=== PATIENT | female | born 1940 | race Caucasian/White ===

== ENCOUNTER 2018-01-22 11:20 | Inpatient (IN) | payer MEDICARE ==
[2018-01-22] MEDS: Sodium Chloride 0.9% 10 ML Syringe FLUSH PRN ×2 (11:55→13:29)
--- NOTE | 2018-01-22 11:59 | EDM.PDOC ---
ED HPI GENERAL MEDICAL PROBLEM - General Chief Complaint: Cardiovascular Problem Stated Complaint: SOB Time Seen by Provider: 01/22/18 11:54 Source of Information: Reports: Patient History Limitations: Reports: No Limitations - History of Present Illness INITIAL COMMENTS - FREE TEXT/NARRATIVE: 77-year-old female presents for evaluation and treatment of shortness of breath. Patient was seen at the [facility] today and sent to the ER for further management and care. She states that the symptoms started gradually. Feels are gradually worsening. Reports shortness of breath, worse with exertion. She reports associated symptoms of chills, diaphoresis, weakness and night sweats. She denies any fevers, cough, nausea, vomiting, chest pain, neck pain, orthopnea or any diarrhea. She denies any blood in her stool. Reports her last bowel movement was today. She denies any changes in her bowel movements such as thin stools. She reports swelling in her legs but states this has been going on for years and has not appreciated any worsening swelling in her legs or any pain in her legs. Patient reports past medical history remarkable for a lung carcinoma with a left lower lobectomy in 1993. Reports she coded after the procedure. She also reports that she's had a heart attack, in 2005, and had a coronary stent placed. Patient also reports that she's had previous history of pulmonary embolus. Patient reports she's never had a colonoscopy. Patient had a chest x-ray done in the [facility]. Patient reports she had a nosebleed prior to arrival in the ER. Nosebleed subsided with pressure. - Related Data Allergies Allergy/AdvReac Type Severity Reaction Status Date / Time No Known Allergies Allergy Verified 01/22/18 11:31 Home Meds: Home Meds Glucosamine/D3/Boswellia Clare [Glucosamine Complex Tablet] 200 mg PO DAILY 10/17 [History] Lisinopril 10 mg PO DAILY 01/01/15 [History] Metoprolol Tartrate 50 mg PO BID 01/01/15 [History] Acetaminophen/Diphenhydramine [Tylenol Pm Ex-Strength Caplet] 1 tab PO BEDTIME 01/22/18 [History] Clopidogrel Bisulfate [Clopidogrel] 75 mg PO DAILY 01/22/18 [History] Ergocalciferol (Vitamin D2) [Vitamin D2] 2,000 units PO DAILY 01/22/18 [History] Famotidine 20 mg PO DAILY 01/22/18 [History] Furosemide 20 mg PO DAILY PRN 01/22/18 [History] Loratadine [Claritin] 10 mg PO DAILY PRN 01/22/18 [History] Multivitamin [Multivitamins] 1 tab PO DAILY 01/22/18 [History] Pravastatin Sodium [Pravachol] 40 mg PO DAILY 01/22/18 [History] Vit A/Vit C/Vit E/Zinc/Copper [Preservision Areds Softgel] 1 cap PO DAILY [History] Past Medical History Cardiovascular History: Reports: Hypertension, Prior Cardiac Arrest, Stents Other Cardiovascular History: placed 2005 Respiratory History: Reports: Other (See Below) Other Respiratory History: "walking pneumonia" Gastrointestinal History: Reports: Other (See Below) Other Gastrointestinal History: bleeding ulcer 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: Oncologic (Cancer) History: Reports: Other (See Below) Other Oncologic History: lung CA; carcenoid tumor removed in 1993 - Past Surgical History HEENT Surgical History: Reports: Adenoidectomy, Tonsillectomy Respiratory Surgical History: Reports: Other (See Below) Other Respiratory Surgeries/Procedures: lung surgery; carcenoid tumor removed in 1993; pulmonary embolism Social & Family History - Tobacco Use Smoking Status *Q: Former Smoker Used Tobacco, but Quit: Yes Month/Year Tobacco Last Used: 1993 - Caffeine Use Caffeine Use: Reports: Coffee - Recreational Drug Use Recreational Drug Use: No ED ROS GENERAL - Review of Systems Review Of Systems: See Below Constitutional: Reports: Weakness, Night Sweats, Diaphoresis. Denies: Fever, Chills HEENT: Denies: Ear Pain, Throat Pain Respiratory: Reports: Shortness of Breath. Denies: Cough Cardiovascular: Reports: Dyspnea on Exertion, Edema. Denies: Chest Pain, Lightheadedness, Orthopnea GI/Abdominal: Denies: Abdominal Pain, Diarrhea, Nausea, Vomiting Musculoskeletal: Denies: Neck Pain, Arm Pain, Back Pain Neurological: Reports: Weakness. Denies: Headache, Syncope ED EXAM, GENERAL - Physical Exam Exam: See Below Exam Limited By: No Limitations General Appearance: Alert, WD/WN, No Apparent Distress Eye Exam: Bilateral Eye: Normal Inspection Ears: Normal External Exam, Normal Canal, Hearing Grossly Normal, Normal TMs Nose: Normal Inspection Respiratory/Chest: No Respiratory Distress, Lungs Clear, Normal Breath Sounds Cardiovascular: Normal Peripheral Pulses, Regular Rate, Rhythm, No Murmur, Other (1+ pitting edema) Neurological: Alert, Oriented, Normal Cognition Psychiatric: Normal Affect, Normal Mood Skin Exam: Warm, Dry, Normal Color EKG INTERPRETATION EKG Date: 01/22/18 Time: 12:00 Rhythm: NSR Rate (Beats/Min): 85 [place]: Normal P-Wave: Present QRS: Normal ST-T: Normal QT: Normal EKG Interpretation Comments: NSR at 85 bpm. Early "R" wave transition - consider RVH/septal hypertrophy pattern. Decreased voltage pattern. Reviewed by myself and Dr. Linares. Course - Vital Signs Last Recorded V/S: Last Vital Signs Temp 36.8 C 01/22/18 11:32 Pulse 88 01/22/18 11:32 Resp 26 H 01/22/18 11:32 BP 143/75 H 01/22/18 11:32 Pulse Ox 96 01/22/18 11:32 - Orders/Labs/Meds Orders: Active Orders 24 hr Category Date Time Status Patient Status [ADT] Routine ADT 01/22/18 15:17 Ordered Cardiac Monitoring [RC] . DIRECTED Care 01/22/18 11:39 Active EKG 12 Lead [EKG Documentation Completion] [RC] STAT Care 01/22/18 11:39 Active Peripheral IV Care [RC] . DIRECTED Care 01/22/18 11:40 Active Sodium Chloride 0.9% [Normal Saline] 250 ml Med 01/22/18 13:00 Active IV ASDIRECTED Sodium Chloride 0.9% [Saline Flush] Med 01/22/18 11:40 Active 10 ml FLUSH ASDIRECTED PRN Peripheral IV Insertion Adult [OM.PC] Routine Oth 01/22/18 11:40 Ordered Medication Orders Sodium Chloride (Normal Saline) 250 mls @ 80 mls/hr IV ASDIRECTED MATT Last Admin: 01/22/18 13:29 Dose: 80 mls/hr Sodium Chloride (Saline Flush) 10 ml FLUSH ASDIRECTED PRN PRN Reason: Keep Vein Open Last Admin: 01/22/18 13:29 Dose: 10 ml Admin: 01/22/18 11:55 Dose: 10 ml Labs: Laboratory Tests 01/22/18 01/22/18 01/22/18 Range/Units 11:50 11:50 11:50 WBC (3.98-10.04) K/mm3 RBC (3.98-5.22) M/mm3 Hgb (11.2-15.7) gm/L Hct (34.1-44.9) % MCV (79.4-94.8) fl MCH (25.6-32.2) pg MCHC (32.2-35.5) g/dl RDW Std Deviation (36.4-46.3) fL Plt Count (182-369) K/mm3 MPV (9.4-12.3) fl Neutrophils % (Manual) (40-60) % Band Neutrophils % (0-10) % Lymphocytes % (Manual) (20-40) % Atypical Lymphs % % Monocytes % (Manual) (2-10) % Eosinophils % (Manual) (0.7-5.8) % Basophils % (Manual) (0.1-1.2) Platelet Estimate RBC Morph Comment PT 10.3 (9.5-12.1) SECONDS INR 0.94 APTT 26 (24-31) SECONDS D-Dimer, Quantitative 9.06 H (0.19-0.50) mg/L Sodium 139 (136-145) mEq/L Potassium 4.6 (3.5-5.1) mEq/L Chloride 108 H (98-107) mEq/L Carbon Dioxide 24 (21-32) mEq/L Anion Gap 11.6 (5-15) BUN 30 H (7-18) mg/dL Creatinine 1.3 H (0.55-1.02) mg/dL Est Cr Clr Drug Dosing 33.93 mL/min Estimated GFR (MDRD) 40 (>60) mL/min BUN/Creatinine Ratio 23.1 H (14-18) Glucose 107 (83-115) mg/dL Calcium 9.5 (8.5-10.1) mg/dL Total Bilirubin 0.4 (0.2-1.0) mg/dL AST 20 (15-37) U/L ALT 27 (14-59) U/L Alkaline Phosphatase 76 (46-116) U/L Troponin I (0.00-0.056) ng/mL NT-Pro-B Natriuret Pep 207 (0-450) pg/mL Total Protein 6.6 (6.4-8.2) g/dl Albumin 3.4 (3.4-5.0) g/dl Globulin 3.2 gm/dL Albumin/Globulin Ratio 1.1 (1-2) 01/22/18 01/22/18 Range/Units 11:50 11:50 WBC 8.09 (3.98-10.04) K/mm3 RBC 4.36 (3.98-5.22) M/mm3 Hgb 13.0 (11.2-15.7) gm/L Hct 40.2 (34.1-44.9) % MCV 92.2 (79.4-94.8) fl MCH 29.8 (25.6-32.2) pg MCHC 32.3 (32.2-35.5) g/dl RDW Std Deviation 46.1 (36.4-46.3) fL Plt Count 175 L (182-369) K/mm3 MPV 10.2 (9.4-12.3) fl Neutrophils % (Manual) 69 H (40-60) % Band Neutrophils % 2 (0-10) % Lymphocytes % (Manual) 22 (20-40) % Atypical Lymphs % 0 % Monocytes % (Manual) 5 (2-10) % Eosinophils % (Manual) 1 (0.7-5.8) % Basophils % (Manual) 1 (0.1-1.2) Platelet Estimate Adequate RBC Morph Comment Normal PT (9.5-12.1) SECONDS INR APTT (24-31) SECONDS D-Dimer, Quantitative (0.19-0.50) mg/L Sodium (136-145) mEq/L Potassium (3.5-5.1) mEq/L Chloride (98-107) mEq/L Carbon Dioxide (21-32) mEq/L Anion Gap (5-15) BUN (7-18) mg/dL Creatinine (0.55-1.02) mg/dL Est Cr Clr Drug Dosing mL/min Estimated GFR (MDRD) (>60) mL/min BUN/Creatinine Ratio (14-18) Glucose (83-115) mg/dL Calcium (8.5-10.1) mg/dL Total Bilirubin (0.2-1.0) mg/dL AST (15-37) U/L ALT (14-59) U/L Alkaline Phosphatase (46-116) U/L Troponin I < 0.017 (0.00-0.056) ng/mL NT-Pro-B Natriuret Pep (0-450) pg/mL Total Protein (6.4-8.2) g/dl Albumin (3.4-5.0) g/dl Globulin gm/dL Albumin/Globulin Ratio (1-2) Meds: Medications Generic Name Dose Route Start Last Admin Trade Name Freq PRN Reason Stop Dose Admin Sodium Chloride 250 mls @ 80 mls/hr 01/22/18 13:00 01/22/18 13:29 Normal Saline IV 80 mls/hr ASDIRECTED MATT Administration Sodium Chloride 10 ml 01/22/18 11:40 01/22/18 13:29 Saline Flush FLUSH 10 ml ASDIRECTED PRN Administration Keep Vein Open Discontinued Medications Generic Name Dose Route Start Last Admin Trade Name Freq PRN Reason Stop Dose Admin Iopamidol 100 ml 01/22/18 12:46 01/22/18 13:29 Isovue-370 (76%) IVPUSH 01/22/18 12:47 100 ml ONETIME ONE Administration - Radiology Interpretation Free Text/Narrative:: 2 view chest xray shows no acute intrathoracic process. Abdomen: Supine and upright views of the abdomen were obtained. Comparison: No prior abdominal x-ray, prior CT abdomen and pelvis exam of . Bowel gas pattern appears normal. Calcifications are seen within the pelvis compatible with phleboliths. Scoliosis and degenerative change is noted within the spine. Inferior vena cava filter is seen. No free air is seen. Impression: 1. Incidental findings. No free air is seen. CT chest Technique: Multiple axial sections were obtained from above the lung apices inferiorly through the lung bases. Intravenous contrast was utilized. Study has been performed as a pulmonary angiogram protocol. Findings: Pulmonary arteries are not optimally opacified. There is however, several filling defects felt to be present within the segmental branches of the left lower lung and left upper lung pulmonary arteries which are felt compatible with pulmonary emboli. No other pulmonary embolism is seen. Mediastinum and hilar regions show no adenopathy or mass. Atherosclerotic calcification is seen within the aorta. Right jugular vein is asymmetrically enlarged compared to the left side which is likely incidental. No pericardial thickening is seen. Cyst is partially visualized within the right kidney measuring 4.8 cm. Slight subsegmental atelectasis is seen posteriorly within both lung bases. Several minimal subpleural blebs are seen within the upper lungs. No acute parenchymal densities are seen within either lung. Impression: 1. Several left-sided pulmonary emboli are seen. 2. Other findings which are felt to be incidental. - Re-Assessments/Exams Free Text/Narrative Re-Assessment/Exam: 01/22/18 15:01 I reviewed the labs, ekg and imaging with the patient. Patient does have an IVC filter placed. It is unclear how she developed a pulmonary embolus with an IVC filter. Possibly she has a defect in the heart and needs an echocardiogram to further evaluate this. Discussed the options with the patient of anticoagulation. She does not want to on Coumadin. We did discuss Xarelto. She has some financial concerns, unfortunate this time I do not have her insurance information and we are unable to give her an exact cost of what this would be. I did inform her that if she would like to start with a new anticoagulation this would work right away and we could possibly do an echocardiogram as an outpatient. The patient's has some concerns that they do over an hour as available in away. Patient's oxygen sats did drop into the low 90s, 90-91 when she was exerting herself by getting out of the wheelchair. I discussed the case with Dr. Harden. He has come to the ER and seen the patient. We will admit her to [facility] with telemetry for pulmonary embolus. Departure - Departure Time of Disposition: 15:05 Disposition: Admitted As Inpatient 66 Condition: Fair Clinical Impression: Pulmonary embolism Referrals: Ching Moraes DRAMATIC READER [Primary Care Provider] - Forms: ED Department Discharge Additional Instructions: Patient admitted to med/surg with tele for pulmonary embolism. - My Orders Last 24 Hours: My Active Orders 01/22/18 11:39 Cardiac Monitoring [RC] . DIRECTED EKG 12 Lead [EKG Documentation Completion] [RC] STAT 01/22/18 11:40 Peripheral IV Care [RC] . DIRECTED Sodium Chloride 0.9% [Saline Flush] 10 ml FLUSH ASDIRECTED PRN Peripheral IV Insertion Adult [OM.PC] Routine 01/22/18 13:00 Sodium Chloride 0.9% [Normal Saline] 250 ml IV ASDIRECTED 01/22/18 15:17 Patient Status [ADT] Routine - Assessment/Plan Last 24 Hours: My Active Orders 01/22/18 11:39 Cardiac Monitoring [RC] . DIRECTED EKG 12 Lead [EKG Documentation Completion] [RC] STAT 01/22/18 11:40 Peripheral IV Care [RC] . DIRECTED Sodium Chloride 0.9% [Saline Flush] 10 ml FLUSH ASDIRECTED PRN Peripheral IV Insertion Adult [OM.PC] Routine 01/22/18 13:00 Sodium Chloride 0.9% [Normal Saline] 250 ml IV ASDIRECTED 01/22/18 15:17 Patient Status [ADT] Routine
[2018-01-22] MEDS ORDERED: Iopamidol 755 Mg/ML 100 ML Bottle IVPUSH ONE (12:46)
[2018-01-22] MEDS ORDERED: Sodium Chloride 0.9% 250 ML IV SCH (13:00)
--- NOTE | 2018-01-22 13:40 | CR ---
Abdomen: Supine and upright views of the abdomen were obtained. Comparison: No prior abdominal x-ray, prior CT abdomen and pelvis exam of 07/09/14. Bowel gas pattern appears normal. Calcifications are seen within the pelvis compatible with phleboliths. Scoliosis and degenerative change is noted within the spine. Inferior vena cava filter is seen. No free air is seen. Impression: 1. Incidental findings. No free air is seen. Diagnostic code #2
--- NOTE | 2018-01-22 14:07 | CT ---
CT chest Technique: Multiple axial sections were obtained from above the lung apices inferiorly through the lung bases. Intravenous contrast was utilized. Study has been performed as a pulmonary angiogram protocol. Findings: Pulmonary arteries are not optimally opacified. There is however, several filling defects felt to be present within the segmental branches of the left lower lung and left upper lung pulmonary arteries which are felt compatible with pulmonary emboli. No other pulmonary embolism is seen. Mediastinum and hilar regions show no adenopathy or mass. Atherosclerotic calcification is seen within the aorta. Right jugular vein is asymmetrically enlarged compared to the left side which is likely incidental. No pericardial thickening is seen. Cyst is partially visualized within the right kidney measuring 4.8 cm. Slight subsegmental atelectasis is seen posteriorly within both lung bases. Several minimal subpleural blebs are seen within the upper lungs. No acute parenchymal densities are seen within either lung. Impression: 1. Several left-sided pulmonary emboli are seen. 2. Other findings which are felt to be incidental. Diagnostic code #5
[2018-01-22] MEDS ORDERED: Loratadine 10 MG Tab PO PRN (15:45)
--- NOTE | 2018-01-22 15:45 | PCM.HP ---
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 Her c/o is associated with exertion, chills, diaphoresis, weakness and night sweats. Her initial workup in the emergency department shows a CBC remarkable for platelet of 175 and neutrophils of 69%. Her coagulation studies show abnormal for d-dimer of 9.06. Her chemistry is significant for chloride of 108, BUN of 30 , and creatinine of 1.3. Abdominal x-ray report reads inferior vena cava filter is seen. No free air is seen. Chest CT angiogram report reads several left- sided pulmonary emboli are seen. Patient is being admitted for medical treatment of pulmonary emboli. She is CPR 1 only. - Related Data Allergies/Adverse Reactions: Allergies Allergy/AdvReac Type Severity Reaction Status Date / Time No Known Allergies Allergy Verified 01/22/18 11:31 Home Medications: Home Meds Glucosamine/D3/Boswellia Clare [Glucosamine Complex Tablet] 200 mg PO DAILY 10/17 [History] Lisinopril 10 mg PO DAILY 01/01/15 [History] Metoprolol Tartrate 50 mg PO BID 01/01/15 [History] Acetaminophen/Diphenhydramine [Tylenol Pm Ex-Strength Caplet] 1 tab PO BEDTIME 01/22/18 [History] Clopidogrel Bisulfate [Clopidogrel] 75 mg PO DAILY 01/22/18 [History] Ergocalciferol (Vitamin D2) [Vitamin D2] 2,000 units PO DAILY 01/22/18 [History] Famotidine 20 mg PO DAILY 01/22/18 [History] Furosemide 40 mg PO DAILY PRN 01/22/18 [History] Loratadine [Claritin] 10 mg PO DAILY PRN 01/22/18 [History] Multivitamin [Multivitamins] 1 tab PO DAILY 01/22/18 [History] Pravastatin Sodium [Pravachol] 40 mg PO DAILY 01/22/18 [History] Vit A/Vit C/Vit E/Zinc/Copper [Preservision Areds Softgel] 1 cap PO DAILY [History] Apixaban [Eliquis] 5 mg PO ASDIRECTED #90 tablet 01/23/18 [Rx] Past Medical History Cardiovascular History: Reports: Hypertension, Prior Cardiac Arrest, Stents Other Cardiovascular History: placed 2005 Respiratory History: Reports: Other (See Below) Other Respiratory History: "walking pneumonia" Gastrointestinal History: Reports: Other (See Below) Other Gastrointestinal History: bleeding ulcer REGISTERED NURSE History: Reports: Oncologic (Cancer) History: Reports: Other (See Below) Other Oncologic History: lung CA; carcenoid tumor removed in 1993 - Past Surgical History HEENT Surgical History: Reports: Adenoidectomy, Tonsillectomy Respiratory Surgical History: Reports: Other (See Below) Other Respiratory Surgeries/Procedures: lung surgery; carcenoid tumor removed in 1993; pulmonary embolism Social & Family History - Tobacco Use Smoking Status *Q: Former Smoker Used Tobacco, but Quit: Yes Month/Year Tobacco Last Used: 1993 - Caffeine Use Caffeine Use: Reports: Coffee - Recreational Drug Use Recreational Drug Use: No H&P Review of Systems - Review of Systems: Review Of Systems: See Below General: Reports: Chills, Malaise, Weakness, Night Sweats, Diaphoresis. Denies : Fever HEENT: Reports: No Symptoms Pulmonary: Reports: Shortness of Breath Cardiovascular: Reports: Dyspnea on Exertion, Edema. Denies: Chest Pain, Palpitations, Lightheadedness Gastrointestinal: Denies: Abdominal Pain, Nausea, Vomiting Genitourinary: Reports: No Symptoms Musculoskeletal: Reports: No Symptoms Skin: Denies: Cyanosis, Mottled, Pallor, Diaphoresis Psychiatric: Denies: Depression, Anxiety, Agitation, Hallucinations Neurological: Reports: Weakness, Gait Disturbance. Denies: Confusion Hematologic/Lymphatic: Reports: No Symptoms Immunologic: Reports: No Symptoms Exam - Exam Exam: See Below - Vital Signs Vital Signs: Last Vital Signs Temp 36.8 C 01/22/18 11:32 Pulse 88 01/22/18 11:32 Resp 26 H 01/22/18 11:32 BP 143/75 H 01/22/18 11:32 Pulse Ox 96 01/22/18 11:32 Weight: 90.718 kg - Exam General: Alert, Oriented, Cooperative, Mild Distress HEENT: Conjunctiva Clear, EACs Clear, EOMI, Hearing Intact, Mucosa Moist & [place] , Nares Patent, Normal Nasal Septum, Posterior Pharynx Clear, Pupils Equal, Pupils Reactive Neck: Supple, Trachea Midline, +2 Carotid Pulse wo Bruit Lungs: Clear to Auscultation, Normal Respiratory Effort Cardiovascular: Regular Rate, Regular Rhythm GI/Abdominal Exam: Normal Bowel Sounds, Soft, Non-Tender, No Organomegaly, No Distention, No Abnormal Bruit (Female) Exam: Deferred Rectal (Female) Exam: Deferred Back Exam: Normal Inspection, Decreased Range of Motion Extremities: Normal Inspection, Normal Range of Motion, Non-Tender, Normal Capillary Refill, Pedal Edema, Other (b/l distal lower extremity skin hyperpigmentation) Peripheral Pulses: 2+: Posterior Tibial (L), Posterior Tibial (R), Dorsalis Pedis (L), Dorsalis Pedis (R) Skin: Warm, Dry, Intact Neuro Extensive - Mental Status: Oriented x3, Normal Cognition, Memory Intact Neuro Extensive - Motor, Sensory, Reflexes: CN II-XII Intact, Abnormal Gait Psychiatric: Alert, Normal Affect, Normal Mood - Patient Data Lab Results Last 24 hrs: Laboratory Results - last 24 hr 01/22/18 01/22/18 01/22/18 Range/Units 11:50 11:50 11:50 WBC (3.98-10.04) K/mm3 RBC (3.98-5.22) M/mm3 Hgb (11.2-15.7) gm/L Hct (34.1-44.9) % MCV (79.4-94.8) fl MCH (25.6-32.2) pg MCHC (32.2-35.5) g/dl RDW Std Deviation (36.4-46.3) fL Plt Count (182-369) K/mm3 MPV (9.4-12.3) fl Neutrophils % (Manual) (40-60) % Band Neutrophils % (0-10) % Lymphocytes % (Manual) (20-40) % Atypical Lymphs % % Monocytes % (Manual) (2-10) % Eosinophils % (Manual) (0.7-5.8) % Basophils % (Manual) (0.1-1.2) Platelet Estimate RBC Morph Comment PT 10.3 (9.5-12.1) SECONDS INR 0.94 APTT 26 (24-31) SECONDS D-Dimer, Quantitative 9.06 H (0.19-0.50) mg/L Sodium 139 (136-145) mEq/L Potassium 4.6 (3.5-5.1) mEq/L Chloride 108 H (98-107) mEq/L Carbon Dioxide 24 (21-32) mEq/L Anion Gap 11.6 (5-15) BUN 30 H (7-18) mg/dL Creatinine 1.3 H (0.55-1.02) mg/dL Est Cr Clr Drug Dosing 33.93 mL/min Estimated GFR (MDRD) 40 (>60) mL/min BUN/Creatinine Ratio 23.1 H (14-18) Glucose 107 (83-115) mg/dL Calcium 9.5 (8.5-10.1) mg/dL Total Bilirubin 0.4 (0.2-1.0) mg/dL AST 20 (15-37) U/L ALT 27 (14-59) U/L Alkaline Phosphatase 76 (46-116) U/L Troponin I (0.00-0.056) ng/mL NT-Pro-B Natriuret Pep 207 (0-450) pg/mL Total Protein 6.6 (6.4-8.2) g/dl Albumin 3.4 (3.4-5.0) g/dl Globulin 3.2 gm/dL Albumin/Globulin Ratio 1.1 (1-2) 01/22/18 01/22/18 Range/Units 11:50 11:50 WBC 8.09 (3.98-10.04) K/mm3 RBC 4.36 (3.98-5.22) M/mm3 Hgb 13.0 (11.2-15.7) gm/L Hct 40.2 (34.1-44.9) % MCV 92.2 (79.4-94.8) fl MCH 29.8 (25.6-32.2) pg MCHC 32.3 (32.2-35.5) g/dl RDW Std Deviation 46.1 (36.4-46.3) fL Plt Count 175 L (182-369) K/mm3 MPV 10.2 (9.4-12.3) fl Neutrophils % (Manual) 69 H (40-60) % Band Neutrophils % 2 (0-10) % Lymphocytes % (Manual) 22 (20-40) % Atypical Lymphs % 0 % Monocytes % (Manual) 5 (2-10) % Eosinophils % (Manual) 1 (0.7-5.8) % Basophils % (Manual) 1 (0.1-1.2) Platelet Estimate Adequate RBC Morph Comment Normal PT (9.5-12.1) SECONDS INR APTT (24-31) SECONDS D-Dimer, Quantitative (0.19-0.50) mg/L Sodium (136-145) mEq/L Potassium (3.5-5.1) mEq/L Chloride (98-107) mEq/L Carbon Dioxide (21-32) mEq/L Anion Gap (5-15) BUN (7-18) mg/dL Creatinine (0.55-1.02) mg/dL Est Cr Clr Drug Dosing mL/min Estimated GFR (MDRD) (>60) mL/min BUN/Creatinine Ratio (14-18) Glucose (83-115) mg/dL Calcium (8.5-10.1) mg/dL Total Bilirubin (0.2-1.0) mg/dL AST (15-37) U/L ALT (14-59) U/L Alkaline Phosphatase (46-116) U/L Troponin I < 0.017 (0.00-0.056) ng/mL NT-Pro-B Natriuret Pep (0-450) pg/mL Total Protein (6.4-8.2) g/dl Albumin (3.4-5.0) g/dl Globulin gm/dL Albumin/Globulin Ratio (1-2) Result Diagrams: 01/23/18 06:41 01/23/18 06:41 EKG INTERPRETATION EKG Date: 01/22/18 Time: 12:00 Rhythm: NSR Rate (Beats/Min): 85 [place]: Normal P-Wave: Present QRS: Normal ST-T: Normal QT: Normal Problem List Initiated/Reviewed/Updated: Yes Orders Last 24hrs: Active Orders 24 hr Category Date Time Status Patient Status [ADT] Routine ADT 01/22/18 15:17 Active Cardiac Monitoring [RC] . DIRECTED Care 01/22/18 11:39 Active EKG 12 Lead [EKG Documentation Completion] [RC] STAT Care 01/22/18 11:39 Active Peripheral IV Care [RC] . DIRECTED Care 01/22/18 11:40 Active Sodium Chloride 0.9% [Normal Saline] 250 ml Med 01/22/18 13:00 Active IV ASDIRECTED Sodium Chloride 0.9% [Saline Flush] Med 01/22/18 11:40 Active 10 ml FLUSH ASDIRECTED PRN Peripheral IV Insertion Adult [OM.PC] Routine Oth 01/22/18 11:40 Ordered Medication Orders Sodium Chloride (Normal Saline) 250 mls @ 80 mls/hr IV ASDIRECTED MATT Last Admin: 01/22/18 13:29 Dose: 80 mls/hr Sodium Chloride (Saline Flush) 10 ml FLUSH ASDIRECTED PRN PRN Reason: Keep Vein Open Last Admin: 01/22/18 13:29 Dose: 10 ml Admin: 01/22/18 11:55 Dose: 10 ml Assessment/Plan Comment:: Assessment/Plan: Acute: Left Lung PE-Unprovoked - Has an old IVC Filter in placed - Hx/o Carcinoid tumor; no hx/o Dysrrhythmia - EKG shows NSR - No hx/o Prolonged Travel, Recent Surgery or Immobility - Class I Obese - Has Hx/o PE was provoked after lung resection - Eliquis PE treatment protocol - 2D echo in AM and 48hr holter monitor after d/c HAS-BLED Score for Major Bleeding Risk: 4 (high risk for major bleeding) - Plavix and Eliquis - Hx/o Gastric ulcer in the past; will double frequency of H2B - She understood the risks associated with combined medications above - She has to discuss this further with her PCP Chronic: HTN HLD CAD S/p Stents Placement in 2005 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
[2018-01-22] MEDS ORDERED: Temazepam 7.5 MG Cap PO PRN (15:48)
[2018-01-22] MEDS ORDERED: HYDROmorphone 0.5 MG/0.5 ML SYRINGE IVPUSH PRN (15:48)
[2018-01-22] MEDS ORDERED: Acetaminophen 325 MG Tab PO PRN (15:48)
[2018-01-22] MEDS ORDERED: Docusate Sodium 100 MG Cap PO PRN (15:48)
[2018-01-22] MEDS ORDERED: Polyethylene Glycol 3350 Powder 17 GM Packet PO PRN (15:48)
[2018-01-22] MEDS ORDERED: Ondansetron 4 MG/2 ML SDV IV PRN (15:48)
[2018-01-22] MEDS ORDERED: Promethazine 12.5 MG in Sodium Chloride 0.9% 50 ML IV PRN (15:48)
[2018-01-22] MEDS ORDERED: Acetaminophen/HYDROcodone 325-5 MG Tab PO PRN (15:48)
[2018-01-22] MEDS ORDERED: Albuterol/Ipratropium 3.0-0.5 MG/3 ML Neb Soln NEB PRN (15:48)
[2018-01-22] MEDS ORDERED: Bisacodyl 5 MG Tab PO PRN (15:48)
[2018-01-22] MEDS ORDERED: hydrALAZINE 20 MG/ML SDV IVPUSH PRN (16:15)
[2018-01-22] MEDS ORDERED: Metoprolol Tartrate 5 MG/5 ML SDV IVPUSH PRN (16:15)
[2018-01-22] MEDS ORDERED: LORazepam 2 MG/ML SDV IVPUSH PRN (16:15)
[2018-01-22] MEDS ORDERED: Furosemide 20 MG Tab PO PRN (16:30)
[2018-01-22] MEDS ORDERED: [UNRECOGNIZED DRUG - REMARK] PO SCH (21:00)
[2018-01-22] MEDS: Metoprolol Tartrate 50 MG Tab PO SCH (21:07)
[2018-01-22] MEDS: Apixaban 5 MG Tab PO SCH (21:07)
[2018-01-22] MEDS ORDERED: Famotidine 20 MG/2 ML SDV IVPUSH ONE (21:15)
--- NOTE | 2018-01-23 07:18 | PCM.PN ---
- General Info Date of Service: 01/23/18 Admission Dx/Problem (Free Text): Admission Diagnosis/Problem Admission Diagnosis/Problem Pulmonary embolism Subjective Update: Follow Up - Patient Data Vitals - Most Recent: Last Vital Signs Temp 36.8 C 01/22/18 11:32 Pulse 70 01/22/18 22:43 Resp 20 01/22/18 21:08 BP 140/77 01/22/18 21:08 Pulse Ox 98 01/22/18 22:43 Weight - Most Recent: 91.796 kg I&O - Last 24 Hours: Intake & Output 01/22/18 01/23/18 01/23/18 22:59 06:59 14:59 Intake Total 0 150 Output Total 950 Balance 0 -800 Lab Results Last 24 Hours: Laboratory Results - last 24 hr 01/22/18 01/22/18 01/22/18 Range/Units 11:50 11:50 11:50 WBC (3.98-10.04) K/mm3 RBC (3.98-5.22) M/mm3 Hgb (11.2-15.7) gm/L Hct (34.1-44.9) % MCV (79.4-94.8) fl MCH (25.6-32.2) pg MCHC (32.2-35.5) g/dl RDW Std Deviation (36.4-46.3) fL Plt Count (182-369) K/mm3 MPV (9.4-12.3) fl Neut % (Auto) (34.0-71.1) % Lymph % (Auto) (19.3-51.7) % [place] % (Auto) (4.7-12.5) % Eos % (Auto) (0.7-5.8) Baso % (Auto) (0.1-1.2) % Neut # (Auto) (1.56-6.13) K/mm3 Lymph # (Auto) (1.18-3.74) K/mm3 [place] # (Auto) (0.24-0.36) K/mm3 Eos # (Auto) (0.04-0.36) K/mm3 Baso # (Auto) (0.01-0.08) K/mm3 Neutrophils % (Manual) (40-60) % Band Neutrophils % (0-10) % Lymphocytes % (Manual) (20-40) % Atypical Lymphs % % Monocytes % (Manual) (2-10) % Eosinophils % (Manual) (0.7-5.8) % Basophils % (Manual) (0.1-1.2) Platelet Estimate RBC Morph Comment PT 10.3 (9.5-12.1) SECONDS INR 0.94 APTT 26 (24-31) SECONDS D-Dimer, Quantitative 9.06 H (0.19-0.50) mg/L Sodium 139 (136-145) mEq/L Potassium 4.6 (3.5-5.1) mEq/L Chloride 108 H (98-107) mEq/L Carbon Dioxide 24 (21-32) mEq/L Anion Gap 11.6 (5-15) BUN 30 H (7-18) mg/dL Creatinine 1.3 H (0.55-1.02) mg/dL Est Cr Clr Drug Dosing 33.93 mL/min Estimated GFR (MDRD) 40 (>60) mL/min BUN/Creatinine Ratio 23.1 H (14-18) Glucose 107 (83-115) mg/dL Calcium 9.5 (8.5-10.1) mg/dL Total Bilirubin 0.4 (0.2-1.0) mg/dL AST 20 (15-37) U/L ALT 27 (14-59) U/L Alkaline Phosphatase 76 (46-116) U/L Troponin I (0.00-0.056) ng/mL NT-Pro-B Natriuret Pep 207 (0-450) pg/mL Total Protein 6.6 (6.4-8.2) g/dl Albumin 3.4 (3.4-5.0) g/dl Globulin 3.2 gm/dL Albumin/Globulin Ratio 1.1 (1-2) 01/22/18 01/22/18 01/23/18 Range/Units 11:50 11:50 06:41 WBC 8.09 6.23 (3.98-10.04) K/mm3 RBC 4.36 4.26 (3.98-5.22) M/mm3 Hgb 13.0 12.6 (11.2-15.7) gm/L Hct 40.2 39.1 (34.1-44.9) % MCV 92.2 91.8 (79.4-94.8) fl MCH 29.8 29.6 (25.6-32.2) pg MCHC 32.3 32.2 (32.2-35.5) g/dl RDW Std Deviation 46.1 45.5 (36.4-46.3) fL Plt Count 175 L 172 L (182-369) K/mm3 MPV 10.2 10.0 (9.4-12.3) fl Neut % (Auto) 64.0 (34.0-71.1) % Lymph % (Auto) 22.2 (19.3-51.7) % [place] % (Auto) 9.8 (4.7-12.5) % Eos % (Auto) 3.5 (0.7-5.8) Baso % (Auto) 0.3 (0.1-1.2) % Neut # (Auto) 3.99 (1.56-6.13) K/mm3 Lymph # (Auto) 1.38 (1.18-3.74) K/mm3 [place] # (Auto) 0.61 H (0.24-0.36) K/mm3 Eos # (Auto) 0.22 (0.04-0.36) K/mm3 Baso # (Auto) 0.02 (0.01-0.08) K/mm3 Neutrophils % (Manual) 69 H (40-60) % Band Neutrophils % 2 (0-10) % Lymphocytes % (Manual) 22 (20-40) % Atypical Lymphs % 0 % Monocytes % (Manual) 5 (2-10) % Eosinophils % (Manual) 1 (0.7-5.8) % Basophils % (Manual) 1 (0.1-1.2) Platelet Estimate Adequate RBC Morph Comment Normal PT (9.5-12.1) SECONDS INR APTT (24-31) SECONDS D-Dimer, Quantitative (0.19-0.50) mg/L Sodium (136-145) mEq/L Potassium (3.5-5.1) mEq/L Chloride (98-107) mEq/L Carbon Dioxide (21-32) mEq/L Anion Gap (5-15) BUN (7-18) mg/dL Creatinine (0.55-1.02) mg/dL Est Cr Clr Drug Dosing mL/min Estimated GFR (MDRD) (>60) mL/min BUN/Creatinine Ratio (14-18) Glucose (83-115) mg/dL Calcium (8.5-10.1) mg/dL Total Bilirubin (0.2-1.0) mg/dL AST (15-37) U/L ALT (14-59) U/L Alkaline Phosphatase (46-116) U/L Troponin I < 0.017 (0.00-0.056) ng/mL NT-Pro-B Natriuret Pep (0-450) pg/mL Total Protein (6.4-8.2) g/dl Albumin (3.4-5.0) g/dl Globulin gm/dL Albumin/Globulin Ratio (1-2) Med Orders - Current: Current Medications Acetaminophen (Tylenol) 650 mg PO Q4H PRN PRN Reason: Pain (Mild 1-3)/fever Hydrocodone Bitart/Acetaminophen (Alex 325-5 Mg) 1 tab PO Q4H PRN PRN Reason: Pain (moderate 4-6) Albuterol/Ipratropium (Duoneb 3.0-0.5 Mg/3 Ml) 3 ml NEB Q4H PRN PRN Reason: Shortness Of Breath/wheezing Apixaban (Eliquis) 10 mg PO BID MATT Stop: 01/29/18 09:01 Last Admin: 01/22/18 21:07 Dose: 10 mg Apixaban (Eliquis) 5 mg PO BID [facility] Bisacodyl (Dulcolax) 5 mg PO DAILY PRN PRN Reason: Constipation Clopidogrel Bisulfate (Plavix) 75 mg PO DAILY [facility] Docusate Sodium (Colace) 100 mg PO BID PRN PRN Reason: Constipation Famotidine (Pepcid) 20 mg PO DAILY [facility] Furosemide (Lasix) 20 mg PO DAILY PRN PRN Reason: DYSPNEA Hydralazine HCl (Apresoline) 10 mg IVPUSH Q6H PRN PRN Reason: Hypertension Hydromorphone HCl (Dilaudid) 0.25 mg IVPUSH Q2H PRN PRN Reason: Pain (severe 7-10) Promethazine HCl 12.5 mg/ (Sodium Chloride) 50.5 mls @ 100 mls/hr IV Q6H PRN PRN Reason: Nausea/Vomiting Lisinopril (Prinivil) 10 mg PO DAILY [facility] Loratadine (Claritin) 10 mg PO DAILY PRN PRN Reason: Allergies Lorazepam (Ativan) 2 mg IVPUSH Q4H PRN PRN Reason: Seizures Magnesium Sulfate (Pharmacy To Dose - Magnesium Replacement) 1 dose .XX ASDIRECTED [facility] Metoprolol Tartrate (Lopressor) 50 mg PO BID [facility] Last Admin: 01/22/18 21:07 Dose: 50 mg Metoprolol Tartrate (Lopressor) 5 mg IVPUSH Q4H PRN PRN Reason: Tachycardia Multivitamins (Thera) 1 each PO DAILY [facility] Ondansetron HCl (Zofran) 4 mg IV Q6H PRN PRN Reason: Nausea/Vomiting Polyethylene Glycol (Miralax) 17 gm PO DAILY PRN PRN Reason: Constipation Potassium Chloride (Pharmacy To Dose - Potassium Replacement) 1 dose .XX ASDIRECTED [facility] Senna/Docusate Sodium (Senna Plus) 1 tab PO BID PRN PRN Reason: Constipation Simvastatin (Zocor) 20 mg PO DAILY [facility] Sodium Chloride (Saline Flush) 10 ml FLUSH ASDIRECTED PRN PRN Reason: Keep Vein Open Last Admin: 01/22/18 13:29 Dose: 10 ml Temazepam (Restoril) 7.5 mg PO BEDTIME PRN PRN Reason: Sleep Last Admin: 01/23/18 01:02 Dose: 7.5 mg Vit A/Vit C/Vit E/Selen/Cu/Zn/Lutei (Icaps Mv) 1 tab PO DAILY [facility] Discontinued Medications Famotidine (Pepcid) 20 mg PO DAILY [facility] Famotidine (Pepcid) 20 mg IVPUSH ONETIME ONE Stop: 01/22/18 21:16 Last Admin: 01/22/18 22:42 Dose: 20 mg Sodium Chloride (Normal Saline) 250 mls @ 80 mls/hr IV ASDIRECTED [facility] Last Admin: 01/22/18 13:29 Dose: 80 mls/hr Iopamidol (Isovue-370 (76%)) 100 ml IVPUSH ONETIME ONE Stop: 01/22/18 12:47 Last Admin: 01/22/18 13:29 Dose: 100 ml Non-Form Acetaminophen/Diphenhydramine 500mg/25mg Tab 1 tab PO BEDTIME [facility] Last Admin: 01/22/18 21:24 Dose: Not Given Non-FormVitamin (D2 2,000 Units) 2,000 units PO DAILY MATT Non-Form Glucosamine Complex Tab 200 mg PO DAILY MATT - My Orders Last 24 Hours: My Active Orders 01/22/18 15:45 Loratadine [Claritin] 10 mg PO DAILY PRN 01/22/18 15:48 Height and Weight [RC] 04 VTE/DVT Education [RC] DAILY Vital Signs [RC] Q4HR Acetaminophen [Tylenol] 650 mg PO Q4H PRN Acetaminophen/HYDROcodone [Alex 325-5 MG] 1 tab PO Q4H PRN Albuterol/Ipratropium [DuoNeb 3.0-0.5 MG/3 ML] 3 ml NEB Q4H PRN Bisacodyl [Dulcolax] 5 mg PO DAILY PRN Docusate Sodium [Colace] 100 mg PO BID PRN Docusate Sodium/Sennosides [Senna Plus] 1 tab PO BID PRN HYDROmorphone [Dilaudid] 0.25 mg IVPUSH Q2H PRN Ondansetron [Zofran] 4 mg IV Q6H PRN Polyethylene Glycol 3350 [MiraLAX] 17 gm PO DAILY PRN Promethazine [Phenergan] 12.5 mg Sodium Chloride 0.9% [Normal Saline] 50 ml IV Q6H Temazepam [Restoril] 7.5 mg PO BEDTIME PRN Resuscitation Status Routine 01/22/18 15:49 Intake and Output [RC] 04,16 01/22/18 16:06 Consult to Case Management [CONS] Routine Consult to [employer] [CONS] Routine Consult to Spiritual Care [CONS] Routine OT Evaluation and Treatment [CONS] Routine PT Evaluation and Treatment [CONS] Routine 01/22/18 16:15 LORazepam [Ativan] 2 mg IVPUSH Q4H PRN Magnesium Rep Pharmacy to Dose [Pharmacy to Dose - Magnesium Replacement] 1 dose .XX ASDIRECTED Metoprolol Tartrate [Lopressor] 5 mg IVPUSH Q4H PRN Potassium Rep Pharmacy to Dose [Pharmacy to Dose - Potassium Replacement] 1 dose .XX ASDIRECTED hydrALAZINE [Apresoline] 10 mg IVPUSH Q6H PRN 01/22/18 16:30 Furosemide [Lasix] 20 mg PO DAILY PRN 01/22/18 21:00 Apixaban [Eliquis] 10 mg PO BID Metoprolol Tartrate [Lopressor] 50 mg PO BID 01/22/18 Dinner Heart Healthy Diet [DIET] 01/23/18 00:03 Activity as Tolerated [RC] .Routine 01/23/18 06:41 BASIC METABOLIC PANEL,BMP [CHEM] AM MAGNESIUM [CHEM] AM 01/23/18 07:00 Echo Comp wo Cont [US] Routine 01/23/18 09:00 Clopidogrel [Plavix] 75 mg PO DAILY Famotidine [Pepcid] 20 mg PO DAILY Lisinopril [Prinivil] 10 mg PO DAILY Multivitamins,Therapeutic [Thera] 1 each PO DAILY Multivitamins/Min/FA/Lut/Zeax [ICaps MV] 1 tab PO DAILY Simvastatin [Zocor] 20 mg PO DAILY 01/29/18 21:00 Apixaban [Eliquis] 5 mg PO BID - Plan Plan:: Assessment/Plan: Acute: Left Lung PE-Unprovoked - Has an old IVC Filter in placed - Hx/o Carcinoid tumor; no hx/o Dysrrhythmia - EKG shows NSR - No hx/o Prolonged Travel, Recent Surgery or Immobility - Class I Obese - Has Hx/o PE was provoked after lung resection - Eliquis PE treatment protocol - 2D echo and 48hr holter monitor after d/c HAS-BLED Score for Major Bleeding Risk: 4 - Plavix and Eliquis - Hx/o Gastric ulcer in the past; will double frequency of H2B - She understood the risks associated with combined medications above Chronic: HTN HLD CAD S/p Stents Placement in 2005 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
[2018-01-23] MEDS ORDERED: Lisinopril 10 MG Tab PO SCH (09:00)
[2018-01-23] MEDS ORDERED: [UNRECOGNIZED DRUG - REMARK] PO SCH (09:00)
[2018-01-23] MEDS ORDERED: Multivitamins with Minerals/Folic Acid/Lutein/Zeaxanth Tab PO SCH (09:00)
[2018-01-23] MEDS ORDERED: Simvastatin 20 MG Tab PO SCH (09:00)
[2018-01-23] MEDS ORDERED: Clopidogrel 75 MG Tab PO SCH (09:00)
[2018-01-23] MEDS ORDERED: Multivitamins,Therapeutic Tab PO SCH (09:00)
[2018-01-23] MEDS ORDERED: [UNRECOGNIZED DRUG - REMARK] PO SCH (09:00)
[2018-01-23] MEDS ORDERED: Famotidine 20 MG Tab PO SCH ×2 (09:00)
[2018-01-23] MEDS: Apixaban 5 MG Tab PO SCH (10:02)
[2018-01-23] MEDS: Metoprolol Tartrate 50 MG Tab PO SCH (10:06)
--- NOTE | 2018-01-23 11:46 | PCM.DCSUM1 ---
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 Her c/o is associated with exertion, chills, diaphoresis, weakness and night sweats. Her initial workup in the emergency department shows a CBC remarkable for platelet of 175 and neutrophils of 69%. Her coagulation studies show abnormal for d-dimer of 9.06. Her chemistry is significant for chloride of 108, BUN of 30, and creatinine of 1.3. Abdominal x- ray report reads inferior vena cava filter is seen. No free air is seen. Chest CT angiogram report reads several left-sided pulmonary emboli are seen. Patient is being admitted for medical treatment of pulmonary emboli. She is CPR 1 only. - Discharge Data Discharge Date: 01/23/18 Discharge Disposition: Home, Self-Care 01 Condition: Good - Discharge Diagnosis/Problem(s) (1) Pulmonary embolism SNOMED Code(s): 84538289 ICD Code: I26.99 - OTHER PULMONARY EMBOLISM WITHOUT ACUTE COR PULMONALE Status: Acute Qualifiers: Pulmonary embolism type: other Chronicity: acute Acute cor pulmonale presence: without acute cor pulmonale Qualified Code(s): I26.99 - Other pulmonary embolism without acute cor pulmonale - Patient Summary/Data Operative Procedure(s) Performed: None Complications: None Consults: Consultations 01/22/18 16:06 Consult to Case Management [CONS] Routine Consult to Patient Support Assistant [CONS] Routine Consult to Spiritual Care [CONS] Routine OT Evaluation and Treatment [CONS] Routine PT Evaluation and Treatment [CONS] Routine Labs Pending at D/C: None Recommended Follow-up Testing/Procedures: 48 hr holter monitor Planned Operative Procedure(s) after DC: None Hospital Course: Patient was primarily admitted for medical treatment of lung blood clot which we felt unprovoked in etiology. Her CTA showed several left pulmonary emboli w/ o respiratory compromise. Her EKG showed normal sinus rhythm and overnight telemetry recorded no abnormal rhythm. Patient was admitted to the floor for further observation. On the floor, she and her were given the option for PE treatment: traditional vs novel anticoagulants. She selected Eliquis since her was on it already (drug familiarity). She received a total of 2 doses of eliquis during her short stay here in the hospital. Her hospital course was uncomplicated and the rest of her chronic medical illness remained stable during this admission. During this admission, she was screened by PT/OT and no issues expressed or concerns reported. On the day of discharge, she was offered to stay one more day if she does not feel ready but she chose to go home instead. Patient was stable upon discharge. She was provided with 48 hour holter monitor to record abnormal cardiac rhythm as a possible etiology of her multiple pulmonary emboli. She was informed she is high risk for major bleeding with combination plavix/eliquis and that she must discussed this further with her PCP on follow up appointment. Patient was advised to call or follow up with her PCP for any questions or concerns after discharge. And most importantly, she was further advised to come back or seek immediate care should her symptoms persist or get worse. The patient and her at bedside expressed understanding and agreement with the plans as discussed above. All questions were answered. - Patient Instructions Diet: Usual Diet as Tolerated Activity: As Tolerated Driving: May Drive Today Showering/Bathing: May Shower Notify Provider of: Fever, Increased Pain, Swelling and Redness, Nausea and/or Vomiting Other/Special Instructions: - Please take new medication as directed. - Resume all routine home medications and continue activities w/o any restrictions. - Follow avoids anti-cholinergics (You are on blood thinner--->High Fall Risk). - Discussed with your PCP if she wants to continue on Plavix while on Eliquis. - Follow up or call your family doctor for any questions or concerns after discharge. - Recommend hypercoagulable work up after treatment. - Come back or seek immediate care should your symptoms persist or get worse - Discharge Plan Prescriptions/Med Rec: Apixaban [Eliquis] 5 mg PO ASDIRECTED #90 tablet Home Medications: Home Meds Glucosamine/D3/Boswellia Clare [Glucosamine Complex Tablet] 200 mg PO DAILY 10/17 [History] Lisinopril 10 mg PO DAILY 01/01/15 [History] Metoprolol Tartrate 50 mg PO BID 01/01/15 [History] Acetaminophen/Diphenhydramine [Tylenol Pm Ex-Strength Caplet] 1 tab PO BEDTIME 01/22/18 [History] Clopidogrel Bisulfate [Clopidogrel] 75 mg PO DAILY 01/22/18 [History] Ergocalciferol (Vitamin D2) [Vitamin D2] 2,000 units PO DAILY 01/22/18 [History] Famotidine 20 mg PO DAILY 01/22/18 [History] Furosemide 40 mg PO DAILY PRN 01/22/18 [History] Loratadine [Claritin] 10 mg PO DAILY PRN 01/22/18 [History] Multivitamin [Multivitamins] 1 tab PO DAILY 01/22/18 [History] Pravastatin Sodium [Pravachol] 40 mg PO DAILY 01/22/18 [History] Vit A/Vit C/Vit E/Zinc/Copper [Preservision Areds Softgel] 1 cap PO DAILY [History] Apixaban [Eliquis] 5 mg PO ASDIRECTED #90 tablet 01/23/18 [Rx] Patient Handouts: Pulmonary Embolism, Apixaban oral tablets Referrals: Ching Moraes, [employer] [Primary Care Provider] - (Please call and schedule a follow-up appointment with Dr. Ching Moraes for in [address] Denney has already discussed your hospitalization with Dr. Moraes. ) - Discharge Summary/Plan Comment DC Time >30 min.: Yes (45 mins) Discharge Summary/Plan Comment: Discharge to Home - General Info Date of Service: 01/23/18 Admission Dx/Problem (Free Text: Admission Diagnosis/Problem Admission Diagnosis/Problem Pulmonary embolism Subjective Update: Follow Up Functional Status: Reports: Pain Controlled, Tolerating Diet, Ambulating, Urinating. Denies: New Symptoms - Review of Systems General: Denies: Fever, Weakness, Fatigue, Malaise, Chills HEENT: Reports: No Symptoms Pulmonary: Denies: Shortness of Breath, Pleuritic Chest Pain, Cough, Hemoptysis Cardiovascular: Denies: Chest Pain, Palpitations, Dyspnea on Exertion, Lightheadedness Gastrointestinal: Denies: Abdominal Pain, Decreased Appetite, Nausea, Vomiting Genitourinary: Reports: No Symptoms Musculoskeletal: Denies: Neck Pain, Arm Pain, Hand Pain, Joint Pain Skin: Denies: Cyanosis, Jaundice, Mottled, Pallor, Diaphoresis Neurological: Denies: Confusion, Dizziness, Headache, Numbness, Pre-Existing Deficit, Syncope, Difficulty Walking, Weakness, Gait Disturbance Psychiatric: Denies: Confusion, Depression, Mood Lability, Anxiety, Agitation, Hallucinations Systems Review Comment: No significant overnight or acute issues. She did not sleep good last not. 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 She feel good otherwise and has no acute issues. - Patient Data Vitals - Most Recent: Last Vital Signs Temp 36.7 C 01/23/18 08:26 Pulse 86 01/23/18 10:06 Resp 29 H 01/23/18 08:26 BP 131/76 01/23/18 10:06 Pulse Ox 95 01/23/18 08:26 Weight - Most Recent: 91.796 kg I&O - Last 24 hours: Intake & Output 01/22/18 01/23/18 01/23/18 22:59 06:59 14:59 Intake Total 0 150 Output Total 950 Balance 0 -800 Imaging Impressions - Last 24 hrs: 2d echo 01/23/2018: Left ventricular ejection fraction 66 5%. No regional wall motion abnormalities. Normal right ventricular systolic function. Right ventricular size is normal. Lab Results - Last 24 hrs: Laboratory Results - last 24 hr 01/22/18 01/22/18 01/22/18 Range/Units 11:50 11:50 11:50 WBC (3.98-10.04) K/mm3 RBC (3.98-5.22) M/mm3 Hgb (11.2-15.7) gm/L Hct (34.1-44.9) % MCV (79.4-94.8) fl MCH (25.6-32.2) pg MCHC (32.2-35.5) g/dl RDW Std Deviation (36.4-46.3) fL Plt Count (182-369) K/mm3 MPV (9.4-12.3) fl Neut % (Auto) (34.0-71.1) % Lymph % (Auto) (19.3-51.7) % Henderson % (Auto) (4.7-12.5) % Eos % (Auto) (0.7-5.8) Baso % (Auto) (0.1-1.2) % Neut # (Auto) (1.56-6.13) K/mm3 Lymph # (Auto) (1.18-3.74) K/mm3 Henderson # (Auto) (0.24-0.36) K/mm3 Eos # (Auto) (0.04-0.36) K/mm3 Baso # (Auto) (0.01-0.08) K/mm3 Neutrophils % (Manual) (40-60) % Band Neutrophils % (0-10) % Lymphocytes % (Manual) (20-40) % Atypical Lymphs % % Monocytes % (Manual) (2-10) % Eosinophils % (Manual) (0.7-5.8) % Basophils % (Manual) (0.1-1.2) Platelet Estimate RBC Morph Comment PT 10.3 (9.5-12.1) SECONDS INR 0.94 APTT 26 (24-31) SECONDS D-Dimer, Quantitative 9.06 H (0.19-0.50) mg/L Sodium 139 (136-145) mEq/L Potassium 4.6 (3.5-5.1) mEq/L Chloride 108 H (98-107) mEq/L Carbon Dioxide 24 (21-32) mEq/L Anion Gap 11.6 (5-15) BUN 30 H (7-18) mg/dL Creatinine 1.3 H (0.55-1.02) mg/dL Est Cr Clr Drug Dosing 33.93 mL/min Estimated GFR (MDRD) 40 (>60) mL/min BUN/Creatinine Ratio 23.1 H (14-18) Glucose 107 (83-115) mg/dL Calcium 9.5 (8.5-10.1) mg/dL Magnesium (1.8-2.4) mg/dl Total Bilirubin 0.4 (0.2-1.0) mg/dL AST 20 (15-37) U/L ALT 27 (14-59) U/L Alkaline Phosphatase 76 (46-116) U/L Troponin I (0.00-0.056) ng/mL NT-Pro-B Natriuret Pep 207 (0-450) pg/mL Total Protein 6.6 (6.4-8.2) g/dl Albumin 3.4 (3.4-5.0) g/dl Globulin 3.2 gm/dL Albumin/Globulin Ratio 1.1 (1-2) 0501/22/18 01/23/18 Range/Units 11:50 11:50 06:41 WBC 8.09 6.23 (3.98-10.04) K/mm3 RBC 4.36 4.26 (3.98-5.22) M/mm3 Hgb 13.0 12.6 (11.2-15.7) gm/L Hct 40.2 39.1 (34.1-44.9) % MCV 92.2 91.8 (79.4-94.8) fl MCH 29.8 29.6 (25.6-32.2) pg MCHC 32.3 32.2 (32.2-35.5) g/dl RDW Std Deviation 46.1 45.5 (36.4-46.3) fL Plt Count 175 L 172 L (182-369) K/mm3 MPV 10.2 10.0 (9.4-12.3) fl Neut % (Auto) 64.0 (34.0-71.1) % Lymph % (Auto) 22.2 (19.3-51.7) % Henderson % (Auto) 9.8 (4.7-12.5) % Eos % (Auto) 3.5 (0.7-5.8) Baso % (Auto) 0.3 (0.1-1.2) % Neut # (Auto) 3.99 (1.56-6.13) K/mm3 Lymph # (Auto) 1.38 (1.18-3.74) K/mm3 Henderson # (Auto) 0.61 H (0.24-0.36) K/mm3 Eos # (Auto) 0.22 (0.04-0.36) K/mm3 Baso # (Auto) 0.02 (0.01-0.08) K/mm3 Neutrophils % (Manual) 69 H (40-60) % Band Neutrophils % 2 (0-10) % Lymphocytes % (Manual) 22 (20-40) % Atypical Lymphs % 0 % Monocytes % (Manual) 5 (2-10) % Eosinophils % (Manual) 1 (0.7-5.8) % Basophils % (Manual) 1 (0.1-1.2) Platelet Estimate Adequate RBC Morph Comment Normal PT (9.5-12.1) SECONDS INR APTT (24-31) SECONDS D-Dimer, Quantitative (0.19-0.50) mg/L Sodium (136-145) mEq/L Potassium (3.5-5.1) mEq/L Chloride (98-107) mEq/L Carbon Dioxide (21-32) mEq/L Anion Gap (5-15) BUN (7-18) mg/dL Creatinine (0.55-1.02) mg/dL Est Cr Clr Drug Dosing mL/min Estimated GFR (MDRD) (>60) mL/min BUN/Creatinine Ratio (14-18) Glucose (83-115) mg/dL Calcium (8.5-10.1) mg/dL Magnesium (1.8-2.4) mg/dl Total Bilirubin (0.2-1.0) mg/dL AST (15-37) U/L ALT (14-59) U/L Alkaline Phosphatase (46-116) U/L Troponin I < 0.017 (0.00-0.056) ng/mL NT-Pro-B Natriuret Pep (0-450) pg/mL Total Protein (6.4-8.2) g/dl Albumin (3.4-5.0) g/dl Globulin gm/dL Albumin/Globulin Ratio (1-2) / Range/Units 06:41 WBC (3.98-10.04) K/mm3 RBC (3.98-5.22) M/mm3 Hgb (11.2-15.7) gm/L Hct (34.1-44.9) % MCV (79.4-94.8) fl MCH (25.6-32.2) pg MCHC (32.2-35.5) g/dl RDW Std Deviation (36.4-46.3) fL Plt Count (182-369) K/mm3 MPV (9.4-12.3) fl Neut % (Auto) (34.0-71.1) % Lymph % (Auto) (19.3-51.7) % Henderson % (Auto) (4.7-12.5) % Eos % (Auto) (0.7-5.8) Baso % (Auto) (0.1-1.2) % Neut # (Auto) (1.56-6.13) K/mm3 Lymph # (Auto) (1.18-3.74) K/mm3 Henderson # (Auto) (0.24-0.36) K/mm3 Eos # (Auto) (0.04-0.36) K/mm3 Baso # (Auto) (0.01-0.08) K/mm3 Neutrophils % (Manual) (40-60) % Band Neutrophils % (0-10) % Lymphocytes % (Manual) (20-40) % Atypical Lymphs % % Monocytes % (Manual) (2-10) % Eosinophils % (Manual) (0.7-5.8) % Basophils % (Manual) (0.1-1.2) Platelet Estimate RBC Morph Comment PT (9.5-12.1) SECONDS INR APTT (24-31) SECONDS D-Dimer, Quantitative (0.19-0.50) mg/L Sodium 139 (136-145) mEq/L Potassium 4.4 (3.5-5.1) mEq/L Chloride 108 H (98-107) mEq/L Carbon Dioxide 22 (21-32) mEq/L Anion Gap 13.4 (5-15) BUN 21 H (7-18) mg/dL Creatinine 1.1 H (0.55-1.02) mg/dL Est Cr Clr Drug Dosing 40.09 mL/min Estimated GFR (MDRD) 48 (>60) mL/min BUN/Creatinine Ratio 19.1 H (14-18) Glucose 114 (83-115) mg/dL Calcium 9.4 (8.5-10.1) mg/dL Magnesium 1.8 (1.8-2.4) mg/dl Total Bilirubin (0.2-1.0) mg/dL AST (15-37) U/L ALT (14-59) U/L Alkaline Phosphatase (46-116) U/L Troponin I (0.00-0.056) ng/mL NT-Pro-B Natriuret Pep (0-450) pg/mL Total Protein (6.4-8.2) g/dl Albumin (3.4-5.0) g/dl Globulin gm/dL Albumin/Globulin Ratio (1-2) Med Orders - Current: Current Medications Acetaminophen (Tylenol) 650 mg PO Q4H PRN PRN Reason: Pain (Mild 1-3)/fever Hydrocodone Bitart/Acetaminophen ([place] 325-5 Mg) 1 tab PO Q4H PRN PRN Reason: Pain (moderate 4-6) Albuterol/Ipratropium (Duoneb 3.0-0.5 Mg/3 Ml) 3 ml NEB Q4H PRN PRN Reason: Shortness Of Breath/wheezing Apixaban (Eliquis) 10 mg PO BID [facility] Stop: 01/29/18 09:01 Last Admin: 01/23/18 10:02 Dose: 10 mg Apixaban (Eliquis) 5 mg PO BID [facility] Bisacodyl (Dulcolax) 5 mg PO DAILY PRN PRN Reason: Constipation Clopidogrel Bisulfate (Plavix) 75 mg PO DAILY [facility] Last Admin: 01/23/18 10:04 Dose: 75 mg Docusate Sodium (Colace) 100 mg PO BID PRN PRN Reason: Constipation Famotidine (Pepcid) 20 mg PO DAILY [facility] Last Admin: 01/23/18 10:04 Dose: 20 mg Furosemide (Lasix) 20 mg PO DAILY PRN PRN Reason: DYSPNEA Hydralazine HCl (Apresoline) 10 mg IVPUSH Q6H PRN PRN Reason: Hypertension Hydromorphone HCl (Dilaudid) 0.25 mg IVPUSH Q2H PRN PRN Reason: Pain (severe 7-10) Promethazine HCl 12.5 mg/ (Sodium Chloride) 50.5 mls @ 100 mls/hr IV Q6H PRN PRN Reason: Nausea/Vomiting Lisinopril (Prinivil) 10 mg PO DAILY [facility] Last Admin: 01/23/18 10:05 Dose: 10 mg Loratadine (Claritin) 10 mg PO DAILY PRN PRN Reason: Allergies Lorazepam (Ativan) 2 mg IVPUSH Q4H PRN PRN Reason: Seizures Magnesium Sulfate (Pharmacy To Dose - Magnesium Replacement) 1 dose .XX ASDIRECTED [facility] Metoprolol Tartrate (Lopressor) 50 mg PO BID [facility] Last Admin: 01/23/18 10:06 Dose: 50 mg Metoprolol Tartrate (Lopressor) 5 mg IVPUSH Q4H PRN PRN Reason: Tachycardia Multivitamins (Thera) 1 each PO DAILY [facility] Last Admin: 01/23/18 10:01 Dose: 1 each Ondansetron HCl (Zofran) 4 mg IV Q6H PRN PRN Reason: Nausea/Vomiting Polyethylene Glycol (Miralax) 17 gm PO DAILY PRN PRN Reason: Constipation Potassium Chloride (Pharmacy To Dose - Potassium Replacement) 1 dose .XX ASDIRECTED [facility] Senna/Docusate Sodium (Senna Plus) 1 tab PO BID PRN PRN Reason: Constipation Simvastatin (Zocor) 20 mg PO DAILY [facility] Last Admin: 01/23/18 10:06 Dose: 20 mg Sodium Chloride (Saline Flush) 10 ml FLUSH ASDIRECTED PRN PRN Reason: Keep Vein Open Last Admin: 01/22/18 13:29 Dose: 10 ml Temazepam (Restoril) 7.5 mg PO BEDTIME PRN PRN Reason: Sleep Last Admin: 01/23/18 01:02 Dose: 7.5 mg Vit A/Vit C/Vit E/Selen/Cu/Zn/Lutei (Icaps Mv) 1 tab PO DAILY [facility] Last Admin: 01/23/18 10:01 Dose: 1 tab Discontinued Medications Famotidine (Pepcid) 20 mg PO DAILY [facility] Famotidine (Pepcid) 20 mg IVPUSH ONETIME ONE Stop: 01/22/18 21:16 Last Admin: 01/22/18 22:42 Dose: 20 mg Sodium Chloride (Normal Saline) 250 mls @ 80 mls/hr IV ASDIRECTED [facility] Last Admin: 01/22/18 13:29 Dose: 80 mls/hr Iopamidol (Isovue-370 (76%)) 100 ml IVPUSH ONETIME ONE Stop: 01/22/18 12:47 Last Admin: 01/22/18 13:29 Dose: 100 ml Non-Form Acetaminophen/Diphenhydramine 500mg/25mg Tab 1 tab PO BEDTIME [facility] Last Admin: 01/22/18 21:24 Dose: Not Given Non-FormVitamin (D2 2,000 Units) 2,000 units PO DAILY [facility] Non-Form Glucosamine Complex Tab 200 mg PO DAILY [facility] - Exam General: Reports: Alert, Oriented, Cooperative, No Acute Distress, Other (Obese) HEENT: Reports: Pupils Equal, Pupils Reactive, EOMI, Mucous Membr. Moist/Dahlgren Neck: Reports: Supple, Trachea Midline, No JVD, No Thyromegaly Lungs: Reports: Clear to Auscultation, Normal Respiratory Effort Cardiovascular: Reports: Regular Rate, Regular Rhythm GI/Abdominal Exam: Normal Bowel Sounds, Soft, Non-Tender, No Organomegaly, No Distention, No Abnormal Bruit, No Mass (Female) Exam: Deferred Rectal (Female) Exam: Deferred Back Exam: Reports: Normal Inspection, Decreased Range of Motion Extremities: Normal Inspection, Normal Range of Motion, Non-Tender, No Pedal Edema, Normal Capillary Refill, Other (skin discoloration on bilateral lower extremity) Skin: Reports: Warm, Dry, Intact Neurological: Reports: No New Focal Deficit Psy/Mental Status: Reports: Alert, Normal Affect, Normal Mood
[2018-01-23 13:46] VITALS: BP 155/91
[2018-01-29] MEDS ORDERED: Apixaban 5 MG Tab PO SCH (21:00)
== END 2018-01-23 13:20 | disposition home or self-care (01) | DRG 176 ==
LOC: JD.ED 11:20 → JD.MS 15:17
PROVIDERS: ADMIT Internal Medicine; ATTEND Internal Medicine
DX: I26.99 Other pulmonary embolism without acute cor pulmonale (principal); I10 Essential (primary) hypertension; Z90.2 Acquired absence of lung [part of]; E78.5 Hyperlipidemia, unspecified; I25.10 Atherosclerotic heart disease of native coronary artery without angina pectoris; H54.7 Unspecified visual loss; M41.9 Scoliosis, unspecified; D64.9 Anemia, unspecified; R79.1 Abnormal coagulation profile; Z79.02 Long term (current) use of antithrombotics/antiplatelets; I25.2 Old myocardial infarction; Z95.5 Presence of coronary angioplasty implant and graft; R04.0 Epistaxis; R06.02 Shortness of breath; R06.00 Dyspnea, unspecified; R60.9 Edema, unspecified; R68.83 Chills (without fever); R61 Generalized hyperhidrosis; R53.1 Weakness; Z86.711 Personal history of pulmonary embolism; Z79.899 Other long term (current) drug therapy; Z85.828 Personal history of other malignant neoplasm of skin; Z96.89 Presence of other specified functional implants; Z86.74 Personal history of sudden cardiac arrest; Z87.11 Personal history of peptic ulcer disease; Z85.110 Personal history of malignant carcinoid tumor of bronchus and lung; Z87.891 Personal history of nicotine dependence
CPT/HCPCS: 36415; 71275; 74019; 80053; 83880; 84484; 85007; 85027; 85379; 85610; 85730; 93005; 99285; J7050 ×3; Q9967; 80048; 83735; 85025; 93306; 97161-GP; 97165-GO; A9270-GY

== ENCOUNTER 2021-04-08 07:49 | Inpatient (IN) | payer MEDICARE ==
--- NOTE | 2021-04-08 08:05 | EDM.PDOC ---
ED HPI GENERAL MEDICAL PROBLEM - General Chief Complaint: Cardiovascular Problem Stated Complaint: [facility] Time Seen by Provider: 04/08/21 07:57 - History of Present Illness INITIAL COMMENTS - FREE TEXT/NARRATIVE: 80-year-old female brought in by [facility] thinking she may have had another heart attack. At approximately 1 AM this morning the patient had pain that started in her right shoulder blade, then moved to her left shoulder. And then developed substernal chest discomfort that did not radiate into her neck or her abdomen. Her shoulder pain did not extend further into her arms. She denies diaphoresis or nausea associated with this episode. Patient had a prior [place] in 2004 had a stent placed then. Patient states her pain lasted about 45 minutes and then got better on its own. She did not come in sooner because she did not want to wake anybody. Patient is an ex-smoker quit approximately 20 years ago patient did not receive aspirin in transfer however did receive some fentanyl for her scoliosis pain. At this time the patient denies any chest pain but she does have pain from her back that is chronic and a typical back pain for her. The patient did take a single baby aspirin at the onset of her symptoms at approximately 1 AM this morning Back Pain Score (Numeric/FACES): 2 - Related Data Allergies Allergy/AdvReac Type Severity Reaction Status Date / Time No Known Allergies Allergy Verified 04/08/21 07:57 Home Meds: Home Meds Glucosamine/D3/Boswellia Clare [Glucosamine Complex Tablet] 200 mg PO DAILY 01/01/15 [History] Metoprolol Tartrate 50 mg PO BID 01/01/15 [History] Acetaminophen/Diphenhydramine [Tylenol Pm Ex-Strength Caplet] 1 tab PO BEDTIME 01/22/18 [History] Ergocalciferol (Vitamin D2) [Vitamin D2] 2,000 units PO DAILY 01/22/18 [History] Famotidine 20 mg PO BID 01/22/18 [History] Furosemide 40 mg PO DAILY PRN 01/22/18 [History] Multivitamin [Multivitamins] 1 tab PO DAILY 01/22/18 [History] Aspirin [Low Dose Aspirin EC] 81 mg PO DAILY 09/17/19 [History] Sertraline HCl 25 mg PO ASDIRECTED PRN 09/17/19 [History] Past Medical History HEENT History: Reports: Allergic Rhinitis Cardiovascular History: Reports: Hypertension, Prior Cardiac Arrest, Stents Other Cardiovascular History: placed 2006 Respiratory History: Reports: Other (See Below) Other Respiratory History: "walking pneumonia" Gastrointestinal History: Reports: Other (See Below) Other Gastrointestinal History: bleeding ulcer 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: Hematologic History: Reports: Blood Transfusion(s) Oncologic (Cancer) History: Reports: Other (See Below) Other Oncologic History: lung CA; carcenoid tumor removed in 1993 - Past Surgical History HEENT Surgical History: Reports: Adenoidectomy, Tonsillectomy Respiratory Surgical History: Reports: Other (See Below) Other Respiratory Surgeries/Procedures: lung surgery; carcenoid tumor removed in 1993; pulmonary embolism Social & Family History - Family History Family Medical History: No Pertinent Family History - Caffeine Use Caffeine Use: Reports: Coffee Caffeine Use Comment: 2 cups/day ED ROS GENERAL - Review of Systems Review Of Systems: See Below Constitutional: Reports: No Symptoms HEENT: Reports: No Symptoms Respiratory: Reports: No Symptoms Cardiovascular: Reports: Chest Pain. Denies: Edema Endocrine: Reports: No Symptoms GI/Abdominal: Reports: No Symptoms Neurological: Reports: No Symptoms ED EXAM, GENERAL - Physical Exam Exam: See Below Exam Limited By: No Limitations General Appearance: Alert, No Apparent Distress, Other (She has chronic back pain at this point but no chest discomfort no shoulder discomfort just her chronic back pain.) Head: Atraumatic, Normocephalic Neck: Normal Inspection, Supple, Non-Tender, Full Range of Motion. No: Lymphadenopathy (L), Lymphadenopathy (R) Respiratory/Chest: No Respiratory Distress, Lungs Clear, Normal Breath Sounds Cardiovascular: Regular Rate, Rhythm, No Edema, No Murmur GI/Abdominal: Normal Bowel Sounds, Soft, Non-Tender Back Exam: Normal Inspection. No: CVA Tenderness (L), CVA Tenderness (R) Extremities: Normal Inspection, No Pedal Edema Neurological: Alert, Oriented, Normal Cognition #1 Interpretation EKG Date: 04/08/21 Rhythm: NSR Rate (Beats/Min): 69 Coello: Normal P-Wave: Present QRS: Normal ST-T: Other (Minimal very subtle ST depression lateral precordial leads) QT: Normal Comparison: Change From Previous EKG (No significant change noted from 01/22/2018 however prominent R waves noted in V2 suggestive of an early transition is not appreciated on today's study.) EKG Interpretation Comments: Abnormal EKG #2 Interpretation EKG Date: 04/08/21 Rhythm: NSR Coello: Normal P-Wave: Present QRS: Normal ST-T: Normal QT: Normal Comparison: No Change (No significant change from the EKG done earlier today) EKG Interpretation Comments: Borderline EKG Course - Vital Signs Last Recorded V/S: Last Vital Signs Temp 36.7 C 04/08/21 11:02 Pulse 72 04/08/21 11:02 Resp 18 04/08/21 11:02 BP 98/76 04/08/21 11:02 Pulse Ox 87 L 04/08/21 11:02 - Orders/Labs/Meds Orders: Active Orders 24 hr Category Date Time Status EKG Documentation Completion [RC] ASDIRECTED Care 04/08/21 08:20 Active EKG Documentation Completion [RC] STAT Care 04/08/21 09:24 Active Abdomen Pelvis w Cont [CT] Stat Exams 04/08/21 09:26 Taken Ang Chest [CT] Stat Exams 04/08/21 09:56 Taken Chest 1V Frontal [CR] Stat Exams 04/08/21 08:11 Taken Sodium Chloride 0.9% [Normal Saline] 100 ml Med 04/08/21 10:00 Active IV ASDIRECTED EKG 12 Lead [EK] Stat Ther 04/08/21 08:20 Ordered Medication Orders Sodium Chloride (Normal Saline) 100 mls @ 75 mls/hr IV ASDIRECTED MATT Labs: Laboratory Tests 04/08/21 04/08/21 04/08/21 Range/Units 08:17 08:17 08:17 WBC 4.29 (3.98-10.04) K/mm3 RBC 4.81 (3.98-5.22) M/mm3 Hgb 13.9 (11.2-15.7) gm/dl Hct 43.9 (34.1-44.9) % MCV 91.3 (79.4-94.8) fl MCH 28.9 (25.6-32.2) pg MCHC 31.7 L (32.2-35.5) g/dl RDW Std Deviation 45.9 (36.4-46.3) fL Plt Count 140 L D (182-369) K/mm3 MPV 10.2 (9.4-12.3) fl Neut % (Auto) 66.7 (34.0-71.1) % Lymph % (Auto) 18.9 L (19.3-51.7) % [place] % (Auto) 14.0 H (4.7-12.5) % Eos % (Auto) 0 L (0.7-5.8) Baso % (Auto) 0.2 (0.1-1.2) % Neut # (Auto) 2.86 (1.56-6.13) K/mm3 Lymph # (Auto) 0.81 L (1.18-3.74) K/mm3 [place] # (Auto) 0.60 H (0.24-0.36) K/mm3 Eos # (Auto) 0.00 L (0.04-0.36) K/mm3 Baso # (Auto) 0.01 (0.01-0.08) K/mm3 PT 11.3 (9.7-12.0) SECONDS INR 1.06 APTT 28.8 (21.7-31.4) SECONDS Sodium 139 (136-145) mEq/L Potassium 4.1 (3.5-5.1) mEq/L Chloride 103 (98-107) mEq/L Carbon Dioxide 24 (21-32) mEq/L Anion Gap 16.1 H (5-15) BUN 18 (7-18) mg/dL Creatinine 1.1 H (0.55-1.02) mg/dL Est Cr Clr Drug Dosing 39.67 mL/min Estimated GFR (MDRD) 48 (>60) mL/min BUN/Creatinine Ratio 16.4 (14-18) Glucose 96 (70-99) mg/dL Calcium 8.8 (8.5-10.1) mg/dL Total Bilirubin 0.3 (0.2-1.0) mg/dL AST 34 (15-37) U/L ALT 27 (14-59) U/L Alkaline Phosphatase 85 (46-116) U/L Troponin I < 0.017 (0.00-0.056) ng/mL Total Protein 6.6 (6.4-8.2) g/dl Albumin 3.5 (3.4-5.0) g/dl Globulin 3.1 gm/dL Albumin/Globulin Ratio 1.1 (1-2) Lipase 683 H (73-393) U/L SARS-CoV-2 RNA (SHERI) (NEGATIVE) 04/08/21 04/08/21 Range/Units 09:35 11:05 WBC (3.98-10.04) K/mm3 RBC (3.98-5.22) M/mm3 Hgb (11.2-15.7) gm/dl Hct (34.1-44.9) % MCV (79.4-94.8) fl MCH (25.6-32.2) pg MCHC (32.2-35.5) g/dl RDW Std Deviation (36.4-46.3) fL Plt Count (182-369) K/mm3 MPV (9.4-12.3) fl Neut % (Auto) (34.0-71.1) % Lymph % (Auto) (19.3-51.7) % [place] % (Auto) (4.7-12.5) % Eos % (Auto) (0.7-5.8) Baso % (Auto) (0.1-1.2) % Neut # (Auto) (1.56-6.13) K/mm3 Lymph # (Auto) (1.18-3.74) K/mm3 [place] # (Auto) (0.24-0.36) K/mm3 Eos # (Auto) (0.04-0.36) K/mm3 Baso # (Auto) (0.01-0.08) K/mm3 PT (9.7-12.0) SECONDS INR APTT (21.7-31.4) SECONDS Sodium (136-145) mEq/L Potassium (3.5-5.1) mEq/L Chloride (98-107) mEq/L Carbon Dioxide (21-32) mEq/L Anion Gap (5-15) BUN (7-18) mg/dL Creatinine (0.55-1.02) mg/dL Est Cr Clr Drug Dosing mL/min Estimated GFR (MDRD) (>60) mL/min BUN/Creatinine Ratio (14-18) Glucose (70-99) mg/dL Calcium (8.5-10.1) mg/dL Total Bilirubin (0.2-1.0) mg/dL AST (15-37) U/L ALT (14-59) U/L Alkaline Phosphatase (46-116) U/L Troponin I < 0.017 (0.00-0.056) ng/mL Total Protein (6.4-8.2) g/dl Albumin (3.4-5.0) g/dl Globulin gm/dL Albumin/Globulin Ratio (1-2) Lipase (73-393) U/L SARS-CoV-2 RNA (SHERI) Positive H (NEGATIVE) Meds: Medications Generic Name Dose Route Start Last Admin Trade Name Freq PRN Reason Stop Dose Admin Sodium Chloride 100 mls @ 75 mls/hr 04/08/21 10:00 Normal Saline IV ASDIRECTED MATT Discontinued Medications Generic Name Dose Route Start Last Admin Trade Name Freq PRN Reason Stop Dose Admin Aspirin 324 mg 04/08/21 08:09 04/08/21 09:30 Aspirin 81 Mg Tab.Chew PO 04/08/21 08:10 324 mg ONETIME ONE Administration Fentanyl 25 mcg 04/08/21 09:52 04/08/21 09:57 Fentanyl 100 Mcg/2 Ml Sdv IVPUSH 04/08/21 09:53 25 mcg ONETIME ONE Administration Fentanyl 25 mcg 04/08/21 10:48 04/08/21 10:58 Fentanyl 100 Mcg/2 Ml Sdv IVPUSH 04/08/21 10:49 25 mcg ONETIME ONE Administration Iopamidol 100 ml 04/08/21 09:55 04/08/21 10:17 Iopamidol 755 Mg/Ml 100 Ml Bottle IVPUSH 04/08/21 09:56 100 ml ONETIME ONE Administration Iopamidol 25 ml 04/08/21 09:58 04/08/21 10:17 Iopamidol 755 Mg/Ml 50 Ml Bottle IVPUSH 04/08/21 09:59 25 ml ONETIME ONE Administration - Re-Assessments/Exams Free Text/Narrative Re-Assessment/Exam: 04/08/21 09:25 I did review the test results with the patient and her troponin is normal of questionable concern is an elevated lipase. The patient also informs me that the pain that she had at 1:00 is returned but it is a little different and she states prior to this pain returning she had worsening back pain. 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 [Primary Care Provider] - Forms: ED Department Discharge Sepsis Event Note (ED) - Focused Exam Vital Signs: Vital Signs Temp Pulse Resp BP Pulse Ox 04/08/21 11:02 36.7 C 72 18 98/76 87 L 04/08/21 07:49 36.9 C 72 14 175/87 H 92 L - My Orders Last 24 Hours: My Active Orders 04/08/21 08:11 Chest 1V Frontal [CR] Stat 04/08/21 08:20 EKG Documentation Completion [RC] ASDIRECTED EKG 12 Lead [EK] Stat 04/08/21 09:24 EKG Documentation Completion [RC] STAT 04/08/21 09:26 Abdomen Pelvis w Cont [CT] Stat 04/08/21 09:56 Ang Chest [CT] Stat 04/08/21 10:00 Sodium Chloride 0.9% [Normal Saline] 100 ml IV ASDIRECTED - Assessment/Plan Last 24 Hours: My Active Orders 04/08/21 08:11 Chest 1V Frontal [CR] Stat 04/08/21 08:20 EKG Documentation Completion [RC] ASDIRECTED EKG 12 Lead [EK] Stat 04/08/21 09:24 EKG Documentation Completion [RC] STAT 04/08/21 09:26 Abdomen Pelvis w Cont [CT] Stat 04/08/21 09:56 Ang Chest [CT] Stat 04/08/21 10:00 Sodium Chloride 0.9% [Normal Saline] 100 ml IV ASDIRECTED
[2021-04-08] MEDS ORDERED: Aspirin 81 MG Tab.Chew PO ONE (08:09)
[2021-04-08] MEDS ORDERED: fentaNYL 100 MCG/2 ML SDV IVPUSH ONE ×2 (09:52→10:48)
[2021-04-08] MEDS ORDERED: Iopamidol 755 Mg/ML 100 ML Bottle IVPUSH ONE (09:55)
[2021-04-08] MEDS ORDERED: Iopamidol 755 MG/ML 50 ML Bottle IVPUSH ONE (09:58)
[2021-04-08] MEDS ORDERED: Sodium Chloride 0.9% 100 ML IV SCH (10:00)
--- NOTE | 2021-04-08 12:54 | PCM.HP.2 ---
H&P History of Present Illness - General Date of Service: 04/08/21 Source of Information: Patient, Old Records, Provider, RN, RN Notes Reviewed History Limitations: Reports: No Limitations - History of Present Illness Initial Comments - Free Text/Narative: This is an 80-year-old female who presents to ED on 04-08-2021 via [facility] with concern over chest pain. She reports pain started around 1 AM this morning in her right shoulder blade and then moved to her left shoulder. She noted substernal chest discomfort but no radiation. Denies any diaphoresis or nausea. Does have a history of DE in 2004 with stent placement. Reports the pain lasted approximately 45 minutes and then resolved on its own. She is a former s moker who quit approximately 20 years ago. On arrival to the ED is denying any current chest pain but states she has chronic back pain. She did take a single baby aspirin at the onset of symptoms around 1 AM. In the ED twelve-lead EKG is obtained showing a sinus rhythm at [address] depression in the lateral precordial leads. There is no significant change from prior EKG. Twelve-lead EKG was repeated several hours later and shows a sinus rhythm with no change from prior EKG. Temp is 36.7 C. Pulse 72. Respirations 18. Blood pressure 98/76. Pulse ox 87% on room air. Labs are obtained showing a WBC of 4.29. Hemoglobin 13.9. Platelet 140,000. Neutrophils are 66.7%. INR is 1.06. Sodium 139. Potassium 4.1. Chloride 103. Carbon dioxide 24. Anion gap 16.1. BUN is 18. Creatinine 1.1. GFR is 48. Glucose 96. Calcium 8.8. Total bilirubin 0.3. AST is 34, ALT 27, alkaline phosphatase 85. Troponin less than 0.017x2. Protein 6.6. Albumin 3.5. Lipase 683. SARS-CoV-2 RNA screen is positive. She is given a baby aspirin and fentanyl for pain. 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 There is evidence of a prior left thoracotomy. This is probably recurrent neoplasm. T here are also enlarged mediastinal lymph nodes and left hilar adenopathy consistent with metastatic disease and mild emphysema noted. CT scan of the abdomen and pelvis with contrast is obtained showing gastric mucosal thickening which may represent gastritis. Differential includes viral gastritis and peptic ulcer disease. There is no other acute changes noted in the abdomen or pelvis. CT angiogram from 01-22-18 is reviewed and confirms nodule in the left upper lobe is new onset, at least since the scan. She carries a history of hypertension, DE with stents in 2005, PUD, lung carcinoid with tumor removed in 1993, and PE. She is a CPR only patient. PCP is Ching Moraes NP. She is subsequently admitted observation on telemetry to the ICU as a MSP overflow for management of her pancreatitis. Back Pain Score (Numeric/FACES): 2 - Related Data Allergies/Adverse Reactions: Allergies Allergy/AdvReac Type Severity Reaction Status Date / Time No Known Allergies Allergy Verified 04/08/21 07:57 Home Medications: Home Meds Glucosamine/D3/Boswellia Clare [Glucosamine Complex Tablet] 200 mg PO DAILY 01/01/15 [History] Metoprolol Tartrate 50 mg PO BID 01/01/15 [History] Acetaminophen/Diphenhydramine [Tylenol Pm Ex-Strength Caplet] 1 tab PO BEDTIME 01/22/18 [History] Ergocalciferol (Vitamin D2) [Vitamin D2] 2,000 units PO DAILY 01/22/18 [History] Famotidine 20 mg PO BID 01/22/18 [History] Furosemide 40 mg PO DAILY PRN 01/22/18 [History] Multivitamin [Multivitamins] 1 tab PO DAILY 01/22/18 [History] Aspirin [Low Dose Aspirin EC] 81 mg PO DAILY 09/17/19 [History] Sertraline HCl 25 mg PO ASDIRECTED PRN 09/17/19 [History] Past Medical History HEENT History: Reports: Allergic Rhinitis Cardiovascular History: Reports: Hypertension, Prior Cardiac Arrest, Stents Other Cardiovascular History: placed 2005 Respiratory History: Reports: Pneumonia, Recurrent, Other (See Below) Other Respiratory History: "walking pneumonia" Gastrointestinal History: Reports: Other (See Below) Other Gastrointestinal History: bleeding ulcer Genitourinary History: Reports: UTI, Recurrent [employer] REPA[employer]ER History: Reports: Musculoskeletal History: Reports: Fracture Hematologic History: Reports: Blood Transfusion(s) Oncologic (Cancer) History: Reports: Other (See Below) Other Oncologic History: lung CA; carcenoid tumor removed in 1993 - Infectious Disease History Infectious Disease History: Reports: Chicken Pox, Measles, Novel Coronavirus - Past Surgical History HEENT Surgical History: Reports: Adenoidectomy, Tonsillectomy Respiratory Surgical History: Reports: Other (See Below) Other Respiratory Surgeries/Procedures: lung surgery; carcenoid tumor removed in 1993; pulmonary embolism Social & Family History - Family History Family Medical History: No Pertinent Family History - Tobacco Use Tobacco Use Status *Q: Former Tobacco User Used Tobacco, but Quit: No - Caffeine Use Caffeine Use: Reports: Coffee, Soda Caffeine Use Comment: 2 cups/day - Recreational Drug Use Recreational Drug Use: No H&P Review of Systems - Review of Systems: Review Of Systems: See Below General: Reports: Weakness, Fatigue. Denies: Fever, Chills, Malaise HEENT: Reports: No Symptoms. Denies: Contact Lenses, Headaches, Sore Throat Pulmonary: Reports: Shortness of Breath (Chronic since lung resection but not any worse currently ). Denies: Wheezing, Pleuritic Chest Pain, Cough, Sputum Cardiovascular: Reports: Blood Pressure Problem. Denies: Chest Pain, Palpitations, Dyspnea on Exertion, Edema, Lightheadedness Gastrointestinal: Reports: No Symptoms. Denies: Abdominal Pain, Constipation, Diarrhea, Hematochezia, Melena, Nausea, Vomiting Genitourinary: Reports: No Symptoms. Denies: Pain Musculoskeletal: Reports: Back Pain (Chronic ) Skin: Reports: No Symptoms. Denies: Cyanosis Psychiatric: Reports: No Symptoms. Denies: Confusion Neurological: Reports: Weakness. Denies: Pre-Existing Deficit, Difficulty Walking, Gait Disturbance Hematologic/Lymphatic: Reports: No Symptoms Immunologic: Reports: No Symptoms Exam - Exam Exam: See Below - Vital Signs Vital Signs: Last Vital Signs Temp 98.1 F 04/08/21 11:02 Pulse 72 04/08/21 11:02 Resp 18 04/08/21 11:02 BP 98/76 04/08/21 11:02 Pulse Ox 87 L 04/08/21 11:02 Weight: 200 lb - Exam Quality Assessment: DVT Prophylaxis. No: Supplemental Oxygen, Urinary Catheter General: Alert, Oriented, Cooperative. No: Mild Distress HEENT: Conjunctiva Clear, EACs Clear, Posterior Pharynx Clear. No: Mucosa Moist & [place] (Mildly dry) Neck: Supple, Trachea Midline Lungs: Clear to Auscultation, Normal Respiratory Effort Cardiovascular: Regular Rate, Regular Rhythm GI/Abdominal Exam: Normal Bowel Sounds, Soft, Non-Tender, No Distention (Female) Exam: Deferred Rectal (Female) Exam: Deferred Back Exam: Full Range of Motion, Paraspinal Tenderness (left lower ), Other (Mild scoliosis) Extremities: Normal Inspection, Normal Range of Motion, Non-Tender, No Pedal Edema, Normal Capillary Refill Peripheral Pulses: 2+: Radial (L), Radial (R), Dorsalis Pedis (L), Dorsalis Pedis (R) Skin: Warm, Dry, Intact Neurological: Cranial Nerves Intact (Grossly) Neuro Extensive - Mental Status: Alert, Oriented x3, Normal Mood/Affect - Patient Data Lab Results Last 24 hrs: Laboratory Results - last 24 hr 04/08/21 04/08/21 04/08/21 Range/Units 08:17 08:17 08:17 WBC 4.29 (3.98-10.04) K/mm3 RBC 4.81 (3.98-5.22) M/mm3 Hgb 13.9 (11.2-15.7) gm/dl Hct 43.9 (34.1-44.9) % MCV 91.3 (79.4-94.8) fl MCH 28.9 (25.6-32.2) pg MCHC 31.7 L (32.2-35.5) g/dl RDW Std Deviation 45.9 (36.4-46.3) fL Plt Count 140 L D (182-369) K/mm3 MPV 10.2 (9.4-12.3) fl Neut % (Auto) 66.7 (34.0-71.1) % Lymph % (Auto) 18.9 L (19.3-51.7) % [place] % (Auto) 14.0 H (4.7-12.5) % Eos % (Auto) 0 L (0.7-5.8) Baso % (Auto) 0.2 (0.1-1.2) % Neut # (Auto) 2.86 (1.56-6.13) K/mm3 Lymph # (Auto) 0.81 L (1.18-3.74) K/mm3 [place] # (Auto) 0.60 H (0.24-0.36) K/mm3 Eos # (Auto) 0.00 L (0.04-0.36) K/mm3 Baso # (Auto) 0.01 (0.01-0.08) K/mm3 PT 11.3 (9.7-12.0) SECONDS INR 1.06 APTT 28.8 (21.7-31.4) SECONDS Sodium 139 (136-145) mEq/L Potassium 4.1 (3.5-5.1) mEq/L Chloride 103 (98-107) mEq/L Carbon Dioxide 24 (21-32) mEq/L Anion Gap 16.1 H (5-15) BUN 18 (7-18) mg/dL Creatinine 1.1 H (0.55-1.02) mg/dL Est Cr Clr Drug Dosing 39.67 mL/min Estimated GFR (MDRD) 48 (>60) mL/min BUN/Creatinine Ratio 16.4 (14-18) Glucose 96 (70-99) mg/dL Calcium 8.8 (8.5-10.1) mg/dL Total Bilirubin 0.3 (0.2-1.0) mg/dL AST 34 (15-37) U/L ALT 27 (14-59) U/L Alkaline Phosphatase 85 (46-116) U/L Troponin I < 0.017 (0.00-0.056) ng/mL Total Protein 6.6 (6.4-8.2) g/dl Albumin 3.5 (3.4-5.0) g/dl Globulin 3.1 gm/dL Albumin/Globulin Ratio 1.1 (1-2) Lipase 683 H (73-393) U/L SARS-CoV-2 RNA (SHERI) (NEGATIVE) 04/08/21 04/08/21 Range/Units 09:35 11:05 WBC (3.98-10.04) K/mm3 RBC (3.98-5.22) M/mm3 Hgb (11.2-15.7) gm/dl Hct (34.1-44.9) % MCV (79.4-94.8) fl MCH (25.6-32.2) pg MCHC (32.2-35.5) g/dl RDW Std Deviation (36.4-46.3) fL Plt Count (182-369) K/mm3 MPV (9.4-12.3) fl Neut % (Auto) (34.0-71.1) % Lymph % (Auto) (19.3-51.7) % [place] % (Auto) (4.7-12.5) % Eos % (Auto) (0.7-5.8) Baso % (Auto) (0.1-1.2) % Neut # (Auto) (1.56-6.13) K/mm3 Lymph # (Auto) (1.18-3.74) K/mm3 [place] # (Auto) (0.24-0.36) K/mm3 Eos # (Auto) (0.04-0.36) K/mm3 Baso # (Auto) (0.01-0.08) K/mm3 PT (9.7-12.0) SECONDS INR APTT (21.7-31.4) SECONDS Sodium (136-145) mEq/L Potassium (3.5-5.1) mEq/L Chloride (98-107) mEq/L Carbon Dioxide (21-32) mEq/L Anion Gap (5-15) BUN (7-18) mg/dL Creatinine (0.55-1.02) mg/dL Est Cr Clr Drug Dosing mL/min Estimated GFR (MDRD) (>60) mL/min BUN/Creatinine Ratio (14-18) Glucose (70-99) mg/dL Calcium (8.5-10.1) mg/dL Total Bilirubin (0.2-1.0) mg/dL AST (15-37) U/L ALT (14-59) U/L Alkaline Phosphatase (46-116) U/L Troponin I < 0.017 (0.00-0.056) ng/mL Total Protein (6.4-8.2) g/dl Albumin (3.4-5.0) g/dl Globulin gm/dL Albumin/Globulin Ratio (1-2) Lipase (73-393) U/L SARS-CoV-2 RNA (SHERI) Positive H (NEGATIVE) Result Diagrams: 04/08/21 08:17 04/08/21 08:17 Sepsis Event Note - Evaluation Sepsis Screening Result: No Definite Risk - Focused Exam Vital Signs: Vital Signs Temp Pulse Resp BP Pulse Ox 04/08/21 11:02 98.1 F 72 18 98/76 87 L 04/08/21 07:49 98.4 F 72 14 175/87 H 92 L - Problem List (1) History of pulmonary embolism SNOMED Code(s): 026099736 ICD Code: Z86.711 - PERSONAL HISTORY OF PULMONARY EMBOLISM Status: Chronic Priority: Low Current Visit: No (2) PUD (peptic ulcer disease) SNOMED Code(s): 56377235 ICD Code: K27.9 - PEPTIC ULC, SITE UNSP, UNSP AC OR CHR, W/O HEMOR OR PERF Status: Chronic Priority: Low Current Visit: No (3) Mediastinal adenopathy SNOMED Code(s): 27551303 ICD Code: R59.0 - LOCALIZED ENLARGED LYMPH NODES Status: Acute Priority: Medium Current Visit: Yes (4) HTN (hypertension) SNOMED Code(s): 59376662 ICD Code: I10 - ESSENTIAL (PRIMARY) HYPERTENSION Status: Chronic Priority: Medium Current Visit: No Qualifiers: Hypertension type: unspecified Qualified Code(s): I10 - Essential (primary) hypertension (5) COVID-19 SNOMED Code(s): 012094206 ICD Code: U07.1 - COVID-19 Status: Acute Priority: High Current Visit: Yes (6) Lung mass SNOMED Code(s): 653159713 ICD Code: R91.8 - OTHER NONSPECIFIC ABNORMAL FINDING OF LUNG FIELD Status: Acute Priority: High Current Visit: Yes (7) Pancreatitis SNOMED Code(s): 25366471 ICD Code: K85.90 - ACUTE PANCREATITIS WITHOUT NECROSIS OR INFECTION, UNSP Status: Acute Priority: High Current Visit: Yes Qualifiers: Chronicity: acute Pancreatitis type: unspecified pancreatitis type Acute pancreatitis complication: unspecified Qualified Code(s): K85.90 - Acute pancreatitis without necrosis or infection, unspecified (8) History of DE (myocardial infarction) SNOMED Code(s): 592336656 ICD Code: I25.2 - OLD MYOCARDIAL INFARCTION Status: Chronic Priority: Low Current Visit: No (9) Hx of heart artery stent SNOMED Code(s): 543436260, 321541854 ICD Code: Z95.5 - PRESENCE OF CORONARY ANGIOPLASTY IMPLANT AND GRAFT Status: Chronic Priority: Low Current Visit: No (10) History of lung cancer SNOMED Code(s): 763600717, 373999463 ICD Code: Z85.118 - PERSONAL HISTORY OF MALIGNANT NEOPLASM OF BRONCHUS AND LUNG Status: Chronic Priority: Medium Current Visit: Yes (11) Chronic back pain SNOMED Code(s): 987695630 ICD Code: M54.9 - DORSALGIA, UNSPECIFIED; G89.29 - OTHER CHRONIC PAIN Status: Chronic Priority: Medium Current Visit: No Qualifiers: Back pain location: back pain in unspecified location Back pain laterality: unspecified Qualified Code(s): M54.9 - Dorsalgia, unspecified; G89.29 - Other chronic pain Problem List Initiated/Reviewed/Updated: Yes Orders Last 24hrs: Active Orders 24 hr Category Date Time Status EKG Documentation Completion [RC] ASDIRECTED Care 04/08/21 08:20 Active EKG Documentation Completion [RC] STAT Care 04/08/21 09:24 Active Abdomen Pelvis w Cont [CT] Stat Exams 04/08/21 09:26 Taken Ang Chest [CT] Stat Exams 04/08/21 09:56 Taken Chest 1V Frontal [CR] Stat Exams 04/08/21 08:11 Taken Sodium Chloride 0.9% [Normal Saline] 100 ml Med 04/08/21 10:00 Active IV ASDIRECTED EKG 12 Lead [EK] Stat Ther 04/08/21 08:20 Ordered Medication Orders Sodium Chloride (Normal Saline) 100 mls @ 75 mls/hr IV ASDIRECTED MATT Assessment/Plan Comment:: Assessment - day of admission 04/08/2021 * 80-year-old female who presents to ED via [facility] with concern over chest pain * History of hypertension, DE with stents in 2005, PUD, lung carcinoid with tumor removed in 1993, and PE * Pain started around 1 AM this morning in her right shoulder blade and then moved to her left shoulder * Noted substernal chest discomfort but no radiation. Denies any diaphoresis or nausea. * Pain lasted approximately 45 minutes and then resolved on its own * Former smoker who quit approximately 20 years ago * On arrival to the ED is denying any current chest pain but states she has chronic back pain * Did take a single baby aspirin at the onset of symptoms around 1 AM. * 12-lead EKG is obtained showing a sinus rhythm at [address] depression in the lateral precordial leads. There is no significant change from prior EKG. * 12-lead EKG was repeated several hours later and shows a sinus rhythm with no change from prior EKG. * Labs are obtained: * WBC of 4.29. * Hemoglobin 13.9. * Platelet 140,000. * Neutrophils are 66.7%. * INR is 1.06. * Sodium 139. * Potassium 4.1. * Chloride 103. * Carbon dioxide 24. * Anion gap 16.1. * BUN is 18. Creatinine 1.1. GFR is 48. * Glucose 96. * Calcium 8.8. * Total bilirubin 0.3. * AST is 34, ALT 27, alkaline phosphatase 85. * Troponin less than 0.017 x2. * Protein 6.6. * Albumin 3.5. * Lipase 683. * SARS-CoV-2 RNA screen is positive. * She is given a baby aspirin and fentanyl for pain. 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 There is evidence of a prior left thoracotomy. 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 * CT scan of the abdomen and pelvis with contrast is obtained showing: * Gastric mucosal thickening which may represent gastritis. Differential includes viral gastritis and peptic ulcer disease. * There is no other acute changes noted in the abdomen or pelvis. * CT angiogram from 01-22-18 is reviewed and no nodule noted on this exam * Subsequently admitted observation on telemetry to the ICU as a MSP overflow for management of her pancreatitis. PLAN: Pancreatitis * NPO for now * IV fluids as ordered * Repeat lipase tomorrow * Monitor labs * Check triglycerides * No signs of duct dilation or cholelithiasis on CT scan COVID-19 * Oxygen as needed to keep saturations 88-95% * Not requiring oxygen so will hold off remdesivir and steroids at this point * Airborne/contact isolation * PRN albuterol MDI * IS * RT consultation * Check D-Dimer Lung mass Mediastinal adenopathy History of lung cancer * Check serum serotonin * Discussed obtaining 5-HIAA however this will be deferred to outpatient due to diet restrictions associated with the test * Follow-up with oncology * Follow-up with PCP PUD (peptic ulcer disease) * Continue home famotidine daily due to creatinine clearance * No acute concerns HTN (hypertension) * Continue home medications * PRN Hydralazine Chronic back pain * PRN pain medications * PT/OT History of DE (myocardial infarction) Hx of heart artery stent * No acute concerns * Troponin negative x2 * Telemetry History of pulmonary embolism * No acute concerns - CTA negative Code status: CPR only PCP: Ching Moraes NP DVT prophylaxis: Lovenox Disposition: Patient admitted ICU as MedSurg overflow observation status with telemetry for management of pancreatitis and further work-up/monitoring for COVI D-19 and lung mass. Length of stay likely 1 to 2 days. - Mortality Measure Prognosis:: Good
[2021-04-08] MEDS ORDERED: HYDROmorphone 0.5 MG/0.5 ML Syringe IVPUSH PRN (14:09)
[2021-04-08] MEDS ORDERED: Ondansetron 4 MG/2 ML SDV IV PRN (14:09)
[2021-04-08] MEDS ORDERED: Albuterol 6.7 GM Inhaler INH PRN (14:09)
[2021-04-08] MEDS ORDERED: Sertraline 25 MG Tab PO PRN (14:09)
[2021-04-08] MEDS: Dextrose 5%-Lactated Ringers 1,000 ML IV SCH (15:18)
[2021-04-08] MEDS: Enoxaparin 40 MG/0.4 ML Syringe SUBCUT SCH (15:51)
[2021-04-08] MEDS: hydrALAZINE 20 MG/ML SDV IVPUSH PRN (15:52)
[2021-04-08] MEDS: Famotidine 20 MG Tab PO SCH (15:52)
[2021-04-08] MEDS: oxyCODONE 5 MG Tab PO PRN ×2 (16:09→20:18)
[2021-04-08] MEDS ORDERED: REMDESIVIR 200 MG in Sodium Chloride 0.9% 250 ML IV SCH (16:30)
[2021-04-08] MEDS: Dexamethasone 4 MG Tab PO SCH (16:39)
[2021-04-08] MEDS ORDERED: Ondansetron 4 MG Tab.DIS PO PRN (17:23)
[2021-04-08] MEDS: Acetaminophen 325 MG Tab PO PRN (20:19)
[2021-04-08] MEDS: Metoprolol Tartrate 50 MG Tab PO SCH (20:20)
[2021-04-09] MEDS: oxyCODONE 5 MG Tab PO PRN ×2 (00:18→20:16)
[2021-04-09] MEDS: Dextrose 5%-Lactated Ringers 1,000 ML IV SCH (00:18)
[2021-04-09] MEDS: Acetaminophen 325 MG Tab PO PRN ×3 (08:49→20:15)
[2021-04-09] MEDS: Dexamethasone 4 MG Tab PO SCH (08:49)
[2021-04-09] MEDS: Enoxaparin 40 MG/0.4 ML Syringe SUBCUT SCH (08:50)
[2021-04-09] MEDS: Metoprolol Tartrate 50 MG Tab PO SCH (08:50)
[2021-04-09] MEDS: Famotidine 20 MG Tab PO SCH (08:51)
[2021-04-09] MEDS ORDERED: Aspirin 81 MG Tab.EC PO SCH (09:00)
--- NOTE | 2021-04-09 09:06 | CT ---
CT abdomen and pelvis Technique: Multiple axial sections were obtained from above the dome of the diaphragm inferiorly through the pubic symphysis. Intravenous contrast was utilized. No oral contrast has been given. Reconstructed coronal and sagittal images were obtained. Comparison: Prior CT abdomen and pelvis study of 07/09/14. Findings: Visualized portions of the lung bases show slight areas of increased density most likely representing areas of scarring. Liver contains no focal parenchymal abnormality. Spleen size is normal. Right adrenal gland shows no nodule. Left adrenal gland is slightly prominent in size but appears stable. Gastric wall shows slight thickening. This occurs in a portion of the nondilated stomach. This is most likely incidental. Pancreas shows no discrete abnormality. Cysts are noted within the right kidney. Upper pole cyst measures approximately 7.7 cm in size which has increased in size from prior exam. Lower pole cortical cyst is noted within the right kidney which measures 1.4 cm in size and has increased in size from prior exam. Parapelvic cyst is noted within the right kidney measuring 1.6 cm in size. Left kidney is smaller than the right kidney. Two small cortical cysts are noted within the left kidney which are an interval change from previous exam. Gallbladder contains no calcified gallstones. Abdominal aorta shows diffuse atherosclerotic calcification which continues into the iliac vessels. No aneurysm is seen within the abdominal aorta. Inferior vena cava filter is present. No retroperitoneal adenopathy or mesenteric abnormalities are seen. Appendix is seen which appears to be normal. No pelvic mass or adenopathy is seen. No free fluid or inflammatory change is appreciated. Bone window settings were reviewed which show diffuse degenerative change most prominent within the lumbar spine. Scoliosis is noted which is likely degenerative. Degenerative change is noted within the sacroiliac joints. Impression: 1. Dilated gastric wall within the nondilated stomach. This is most likely incidental. 2. Other findings as noted above which are felt to be incidental. No definite acute abnormality is appreciated. Diagnostic code #2 I mildly disagree with preliminary report from [facility], finalized on 04/08/21, 12:35 PM CDT, code 2
--- NOTE | 2021-04-09 09:10 | CT ---
CT chest Technique: Multiple axial sections through the chest were obtained. Study has been performed as a pulmonary angiogram protocol. Arredondo: Prior CT chest of 01/22/18. Findings: Pulmonary arteries are well opacified. No filling defects are seen to indicate pulmonary embolism. Thoracic aorta shows mild atherosclerotic calcification with no aneurysm. Right lobe of the thyroid gland is enlarged but appears stable from prior exam. Lymph node is noted lateral to the left aortic arch measuring 1.4 cm. Enlarged mediastinal lymph node is seen left of the [place] measuring 2.4 cm. Left adrenal adenopathy is seen measuring 2.2 cm. No pericardial thickening is seen. Coronary artery calcification is noted. Small subpleural nodule is noted within the left upper chest which is stable. This nodule measures about 6-7 mm. There is a parenchymal mass being seen within the left upper lung which shows slightly irregular surface margins. This mass measures 3.2 cm x 1.9 cm. This abnormality is an interval change from prior study and is compatible with likely neoplasm. Slight parenchymal scarring is seen within both lung bases which appears stable. No acute parenchymal change is seen. Emphysematous change is noted. Thoracic spine shows nothing acute. Previous surgery is noted within the left seventh rib presumably representing change from previous surgery. Impression: 1. Mediastinal adenopathy which is an interval change from prior chest CT. This is most likely metastatic. 2. Mass noted within the left upper chest which is also an interval change from prior CT study and is felt compatible with neoplasm. 3. No findings of pulmonary embolism. 4. Emphysematous change and mild bibasilar parenchymal scarring. 5. Other findings believed to be chronic as noted above. Diagnostic code #9 I agree with preliminary report from [facility], finalized on 04/08/21, 12:17 PM CDT, code 1
[2021-04-09] MEDS ORDERED: Magnesium Sulfate/Water 2 GM in Premix Bag 1 BAG IV ONE (09:53)
--- NOTE | 2021-04-09 09:58 | PCM.PN ---
- General Info Date of Service: 04/09/21 Functional Status: Reports: Pain Controlled, Tolerating Diet, Ambulating, Urinating, Incentive Spirometry, Other (Acapella ). Denies: New Symptoms - Review of Systems General: Reports: Weakness (improving ). Denies: Fever, Fatigue, Malaise, Chills HEENT: Reports: No Symptoms. Denies: Headaches, Sore Throat Pulmonary: Reports: No Symptoms, Shortness of Breath. Denies: Cough, Sputum, Wheezing Cardiovascular: Reports: No Symptoms. Denies: Chest Pain, Palpitations, Dyspnea on Exertion, Edema Gastrointestinal: Reports: No Symptoms. Denies: Abdominal Pain, Constipation, Diarrhea, Nausea, Vomiting Genitourinary: Reports: No Symptoms. Denies: Pain Musculoskeletal: Reports: Back Pain Skin: Reports: No Symptoms. Denies: Cyanosis Neurological: Reports: No Symptoms. Denies: Confusion, Headache, Numbness, Pre- Existing Deficit, Tingling, Difficulty Walking, Gait Disturbance Psychiatric: Reports: No Symptoms - Patient Data Vitals - Most Recent: Last Vital Signs Temp 97.2 F 04/09/21 08:54 Pulse 59 L 04/09/21 08:54 Resp 20 04/09/21 08:54 BP 136/68 04/09/21 08:54 Pulse Ox 99 04/09/21 08:54 Weight - Most Recent: 198 lb 8 oz I&O - Last 24 Hours: Intake & Output 04/08/21 04/09/21 04/09/21 22:59 06:59 14:59 Intake Total 1080 Balance 1080 Lab Results Last 24 Hours: Laboratory Results - last 24 hr 04/08/21 04/08/21 04/08/21 Range/Units 09:35 11:05 11:05 WBC (3.98-10.04) K/mm3 RBC (3.98-5.22) M/mm3 Hgb (11.2-15.7) gm/dl Hct (34.1-44.9) % MCV (79.4-94.8) fl MCH (25.6-32.2) pg MCHC (32.2-35.5) g/dl RDW Std Deviation (36.4-46.3) fL Plt Count (182-369) K/mm3 MPV (9.4-12.3) fl Neut % (Auto) (34.0-71.1) % Lymph % (Auto) (19.3-51.7) % Beckham % (Auto) (4.7-12.5) % Eos % (Auto) (0.7-5.8) Baso % (Auto) (0.1-1.2) % Neut # (Auto) (1.56-6.13) K/mm3 Lymph # (Auto) (1.18-3.74) K/mm3 Beckham # (Auto) (0.24-0.36) K/mm3 Eos # (Auto) (0.04-0.36) K/mm3 Baso # (Auto) (0.01-0.08) K/mm3 D-Dimer, Quantitative (0.19-0.50) mg/L Sodium (136-145) mEq/L Potassium (3.5-5.1) mEq/L Chloride (98-107) mEq/L Carbon Dioxide (21-32) mEq/L Anion Gap (5-15) BUN (7-18) mg/dL Creatinine (0.55-1.02) mg/dL Est Cr Clr Drug Dosing mL/min Estimated GFR (MDRD) (>60) mL/min BUN/Creatinine Ratio (14-18) Glucose (70-99) mg/dL POC Glucose (70-99) mg/dL Calcium (8.5-10.1) mg/dL Magnesium (1.8-2.4) mg/dL Total Bilirubin (0.2-1.0) mg/dL AST (15-37) U/L ALT (14-59) U/L Alkaline Phosphatase (46-116) U/L Troponin I < 0.017 (0.00-0.056) ng/mL Total Protein (6.4-8.2) g/dl Albumin (3.4-5.0) g/dl Globulin gm/dL Albumin/Globulin Ratio (1-2) Triglycerides 98 (<150) mg/dL Lipase (73-393) U/L SARS-CoV-2 RNA (SHERI) Positive H (NEGATIVE) 04/08/21 04/08/21 04/09/21 Range/Units 16:15 18:55 00:11 WBC (3.98-10.04) K/mm3 RBC (3.98-5.22) M/mm3 Hgb (11.2-15.7) gm/dl Hct (34.1-44.9) % MCV (79.4-94.8) fl MCH (25.6-32.2) pg MCHC (32.2-35.5) g/dl RDW Std Deviation (36.4-46.3) fL Plt Count (182-369) K/mm3 MPV (9.4-12.3) fl Neut % (Auto) (34.0-71.1) % Lymph % (Auto) (19.3-51.7) % Beckham % (Auto) (4.7-12.5) % Eos % (Auto) (0.7-5.8) Baso % (Auto) (0.1-1.2) % Neut # (Auto) (1.56-6.13) K/mm3 Lymph # (Auto) (1.18-3.74) K/mm3 Beckham # (Auto) (0.24-0.36) K/mm3 Eos # (Auto) (0.04-0.36) K/mm3 Baso # (Auto) (0.01-0.08) K/mm3 D-Dimer, Quantitative 2.62 H (0.19-0.50) mg/L Sodium (136-145) mEq/L Potassium (3.5-5.1) mEq/L Chloride (98-107) mEq/L Carbon Dioxide (21-32) mEq/L Anion Gap (5-15) BUN (7-18) mg/dL Creatinine (0.55-1.02) mg/dL Est Cr Clr Drug Dosing mL/min Estimated GFR (MDRD) (>60) mL/min BUN/Creatinine Ratio (14-18) Glucose (70-99) mg/dL POC Glucose 73 154 H (70-99) mg/dL Calcium (8.5-10.1) mg/dL Magnesium (1.8-2.4) mg/dL Total Bilirubin (0.2-1.0) mg/dL AST (15-37) U/L ALT (14-59) U/L Alkaline Phosphatase (46-116) U/L Troponin I (0.00-0.056) ng/mL Total Protein (6.4-8.2) g/dl Albumin (3.4-5.0) g/dl Globulin gm/dL Albumin/Globulin Ratio (1-2) Triglycerides (<150) mg/dL Lipase (73-393) U/L SARS-CoV-2 RNA (SHERI) (NEGATIVE) 04/09/21 04/09/21 04/09/21 Range/Units 04:55 04:55 04:56 WBC 3.45 L (3.98-10.04) K/mm3 RBC 4.70 (3.98-5.22) M/mm3 Hgb 13.6 (11.2-15.7) gm/dl Hct 42.8 (34.1-44.9) % MCV 91.1 (79.4-94.8) fl MCH 28.9 (25.6-32.2) pg MCHC 31.8 L (32.2-35.5) g/dl RDW Std Deviation 45.2 (36.4-46.3) fL Plt Count 146 L (182-369) K/mm3 MPV 10.1 (9.4-12.3) fl Neut % (Auto) 73.7 H (34.0-71.1) % Lymph % (Auto) 21.7 (19.3-51.7) % Beckham % (Auto) 4.6 L (4.7-12.5) % Eos % (Auto) 0 L (0.7-5.8) Baso % (Auto) 0.0 L (0.1-1.2) % Neut # (Auto) 2.54 (1.56-6.13) K/mm3 Lymph # (Auto) 0.75 L (1.18-3.74) K/mm3 Beckham # (Auto) 0.16 L (0.24-0.36) K/mm3 Eos # (Auto) 0.00 L (0.04-0.36) K/mm3 Baso # (Auto) 0.00 L (0.01-0.08) K/mm3 D-Dimer, Quantitative (0.19-0.50) mg/L Sodium 141 (136-145) mEq/L Potassium 4.6 (3.5-5.1) mEq/L Chloride 107 (98-107) mEq/L Carbon Dioxide 25 (21-32) mEq/L Anion Gap 13.6 (5-15) BUN 17 (7-18) mg/dL Creatinine 1.0 (0.55-1.02) mg/dL Est Cr Clr Drug Dosing 43.63 mL/min Estimated GFR (MDRD) 53 (>60) mL/min BUN/Creatinine Ratio 17.0 (14-18) Glucose 161 H (70-99) mg/dL POC Glucose 151 H (70-99) mg/dL Calcium 8.6 (8.5-10.1) mg/dL Magnesium 1.6 L (1.8-2.4) mg/dL Total Bilirubin 0.2 (0.2-1.0) mg/dL AST 32 (15-37) U/L ALT 26 (14-59) U/L Alkaline Phosphatase 74 (46-116) U/L Troponin I (0.00-0.056) ng/mL Total Protein 5.9 L (6.4-8.2) g/dl Albumin 3.0 L (3.4-5.0) g/dl Globulin 2.9 gm/dL Albumin/Globulin Ratio 1.0 (1-2) Triglycerides (<150) mg/dL Lipase 532 H (73-393) U/L SARS-CoV-2 RNA (SHERI) (NEGATIVE) Med Orders - Current: Current Medications Acetaminophen (Acetaminophen 325 Mg Tab) 650 mg PO Q4H PRN PRN Reason: Pain (Mild 1-3)/fever Last Admin: 04/09/21 08:49 Dose: 650 mg Documented by: Albuterol (Albuterol 6.7 Gm Inhaler) 0 gm INH Q2H PRN PRN Reason: SOB/Wheezing Aspirin (Aspirin 81 Mg Tab.Ec) 81 mg PO DAILY [facility] Last Admin: 04/09/21 08:49 Dose: 81 mg Documented by: Dexamethasone (Dexamethasone 4 Mg Tab) 6 mg PO DAILY [facility] Stop: 04/17/21 09:01 Last Admin: 04/09/21 08:49 Dose: 6 mg Documented by: Enoxaparin Sodium (Enoxaparin 40 Mg/0.4 Ml Syringe) 40 mg SUBCUT DAILY [facility] Last Admin: 04/09/21 08:50 Dose: 40 mg Documented by: Famotidine (Famotidine 20 Mg Tab) 20 mg PO DAILY [facility] Last Admin: 04/09/21 08:51 Dose: 20 mg Documented by: Hydralazine HCl (Hydralazine 20 Mg/Ml Sdv) 10 mg IVPUSH Q6H PRN PRN Reason: Hypertension Last Admin: 04/08/21 15:52 Dose: 10 mg Documented by: Hydromorphone HCl (Hydromorphone 0.5 Mg/0.5 Ml Syringe) 0.5 mg IVPUSH Q2H PRN PRN Reason: Pain (severe 7-10) Last Admin: 04/08/21 16:10 Dose: 0.5 mg Documented by: Dextrose/Lactated Ringer's (Dextrose 5%-Lactated Ringers) 1,000 mls @ 100 mls/hr IV ASDIRECTED MATT Last Admin: 04/09/21 00:18 Dose: 100 mls/hr Documented by: Remdesivir 100 mg/ Sodium (Chloride) 100 mls @ 100 mls/hr IV Q24H [facility] Stop: 04/12/21 17:59 Magnesium Sulfate 2 gm/ Premix 50 mls @ 25 mls/hr IV ONETIME ONE Stop: 04/09/21 11:52 Metoprolol Tartrate (Metoprolol Tartrate 50 Mg Tab) 50 mg PO BID [facility] Last Admin: 04/09/21 08:50 Dose: 50 mg Documented by: Ondansetron HCl (Ondansetron 4 Mg/2 Ml Sdv) 4 mg IV Q6H PRN PRN Reason: Nausea/Vomiting Last Admin: 04/08/21 17:47 Dose: 4 mg Documented by: Ondansetron HCl (Ondansetron 4 Mg Tab.Dis) 4 mg PO Q6H PRN PRN Reason: Nausea/Vomiting Oxycodone HCl (Oxycodone 5 Mg Tab) 5 mg PO Q4H PRN PRN Reason: Pain (moderate 4-6) Last Admin: 04/09/21 00:18 Dose: 5 mg Documented by: Sertraline HCl (Sertraline 25 Mg Tab) 25 mg PO ASDIRECTED PRN PRN Reason: Anxiety Discontinued Medications Aspirin (Aspirin 81 Mg Tab.Chew) 324 mg PO ONETIME ONE Stop: 04/08/21 08:10 Last Admin: 04/08/21 09:30 Dose: 324 mg Documented by: Fentanyl (Fentanyl 100 Mcg/2 Ml Sdv) 25 mcg IVPUSH ONETIME ONE Stop: 04/08/21 09:53 Last Admin: 04/08/21 09:57 Dose: 25 mcg Documented by: Fentanyl (Fentanyl 100 Mcg/2 Ml Sdv) 25 mcg IVPUSH ONETIME ONE Stop: 04/08/21 10:49 Last Admin: 04/08/21 10:58 Dose: 25 mcg Documented by: Sodium Chloride (Normal Saline) 100 mls @ 75 mls/hr IV ASDIRECTED MATT Remdesivir 200 mg/ Sodium (Chloride) 250 mls @ 250 mls/hr IV Q24H MATT Stop: 04/08/21 17:29 Last Admin: 04/08/21 16:39 Dose: 250 mls/hr Documented by: Iopamidol (Iopamidol 755 Mg/Ml 100 Ml Bottle) 100 ml IVPUSH ONETIME ONE Stop: 04/08/21 09:56 Last Admin: 04/08/21 10:17 Dose: 100 ml Documented by: Iopamidol (Iopamidol 755 Mg/Ml 50 Ml Bottle) 25 ml IVPUSH ONETIME ONE Stop: 04/08/21 09:59 Last Admin: 04/08/21 10:17 Dose: 25 ml Documented by: - Exam Quality Assessment: Supplemental Oxygen (2L ), DVT Prophylaxis. No: Urine Catheter General: Alert, Oriented, Cooperative, No Acute Distress HEENT: Pupils Equal, Pupils Reactive, Mucous Membr. Moist/[place] Neck: Supple, Trachea Midline Lungs: Clear to Auscultation, Normal Respiratory Effort Cardiovascular: Regular Rhythm, Bradycardia GI/Abdominal Exam: Normal Bowel Sounds, Soft, Non-Tender, No Distention (Female) Exam: Deferred Back Exam: Normal Inspection, Full Range of Motion Extremities: Normal Inspection, Normal Range of Motion, Non-Tender, No Pedal Edema, Normal Capillary Refill Peripheral Pulses: 2+: Radial (L), Radial (R), Dorsalis Pedis (L), Dorsalis Pedis (R) Skin: Warm, Dry, Intact Neurological: No New Focal Deficit Psy/Mental Status: Alert, Normal Affect, Normal Mood - Patient Data Lab Results Last 24 hrs: Laboratory Results - last 24 hr 04/08/21 04/08/21 04/08/21 Range/Units 09:35 11:05 11:05 WBC (3.98-10.04) K/mm3 RBC (3.98-5.22) M/mm3 Hgb (11.2-15.7) gm/dl Hct (34.1-44.9) % MCV (79.4-94.8) fl MCH (25.6-32.2) pg MCHC (32.2-35.5) g/dl RDW Std Deviation (36.4-46.3) fL Plt Count (182-369) K/mm3 MPV (9.4-12.3) fl Neut % (Auto) (34.0-71.1) % Lymph % (Auto) (19.3-51.7) % Beckham % (Auto) (4.7-12.5) % Eos % (Auto) (0.7-5.8) Baso % (Auto) (0.1-1.2) % Neut # (Auto) (1.56-6.13) K/mm3 Lymph # (Auto) (1.18-3.74) K/mm3 Beckham # (Auto) (0.24-0.36) K/mm3 Eos # (Auto) (0.04-0.36) K/mm3 Baso # (Auto) (0.01-0.08) K/mm3 D-Dimer, Quantitative (0.19-0.50) mg/L Sodium (136-145) mEq/L Potassium (3.5-5.1) mEq/L Chloride (98-107) mEq/L Carbon Dioxide (21-32) mEq/L Anion Gap (5-15) BUN (7-18) mg/dL Creatinine (0.55-1.02) mg/dL Est Cr Clr Drug Dosing mL/min Estimated GFR (MDRD) (>60) mL/min BUN/Creatinine Ratio (14-18) Glucose (70-99) mg/dL POC Glucose (70-99) mg/dL Calcium (8.5-10.1) mg/dL Magnesium (1.8-2.4) mg/dL Total Bilirubin (0.2-1.0) mg/dL AST (15-37) U/L ALT (14-59) U/L Alkaline Phosphatase (46-116) U/L Troponin I < 0.017 (0.00-0.056) ng/mL Total Protein (6.4-8.2) g/dl Albumin (3.4-5.0) g/dl Globulin gm/dL Albumin/Globulin Ratio (1-2) Triglycerides 98 (<150) mg/dL Lipase (73-393) U/L SARS-CoV-2 RNA (SHERI) Positive H (NEGATIVE) 04/08/21 04/08/21 04/09/21 Range/Units 16:15 18:55 00:11 WBC (3.98-10.04) K/mm3 RBC (3.98-5.22) M/mm3 Hgb (11.2-15.7) gm/dl Hct (34.1-44.9) % MCV (79.4-94.8) fl MCH (25.6-32.2) pg MCHC (32.2-35.5) g/dl RDW Std Deviation (36.4-46.3) fL Plt Count (182-369) K/mm3 MPV (9.4-12.3) fl Neut % (Auto) (34.0-71.1) % Lymph % (Auto) (19.3-51.7) % Beckham % (Auto) (4.7-12.5) % Eos % (Auto) (0.7-5.8) Baso % (Auto) (0.1-1.2) % Neut # (Auto) (1.56-6.13) K/mm3 Lymph # (Auto) (1.18-3.74) K/mm3 Beckham # (Auto) (0.24-0.36) K/mm3 Eos # (Auto) (0.04-0.36) K/mm3 Baso # (Auto) (0.01-0.08) K/mm3 D-Dimer, Quantitative 2.62 H (0.19-0.50) mg/L Sodium (136-145) mEq/L Potassium (3.5-5.1) mEq/L Chloride (98-107) mEq/L Carbon Dioxide (21-32) mEq/L Anion Gap (5-15) BUN (7-18) mg/dL Creatinine (0.55-1.02) mg/dL Est Cr Clr Drug Dosing mL/min Estimated GFR (MDRD) (>60) mL/min BUN/Creatinine Ratio (14-18) Glucose (70-99) mg/dL POC Glucose 73 154 H (70-99) mg/dL Calcium (8.5-10.1) mg/dL Magnesium (1.8-2.4) mg/dL Total Bilirubin (0.2-1.0) mg/dL AST (15-37) U/L ALT (14-59) U/L Alkaline Phosphatase (46-116) U/L Troponin I (0.00-0.056) ng/mL Total Protein (6.4-8.2) g/dl Albumin (3.4-5.0) g/dl Globulin gm/dL Albumin/Globulin Ratio (1-2) Triglycerides (<150) mg/dL Lipase (73-393) U/L SARS-CoV-2 RNA (SHERI) (NEGATIVE) 04/09/21 04/09/21 04/09/21 Range/Units 04:55 04:55 04:56 WBC 3.45 L (3.98-10.04) K/mm3 RBC 4.70 (3.98-5.22) M/mm3 Hgb 13.6 (11.2-15.7) gm/dl Hct 42.8 (34.1-44.9) % MCV 91.1 (79.4-94.8) fl MCH 28.9 (25.6-32.2) pg MCHC 31.8 L (32.2-35.5) g/dl RDW Std Deviation 45.2 (36.4-46.3) fL Plt Count 146 L (182-369) K/mm3 MPV 10.1 (9.4-12.3) fl Neut % (Auto) 73.7 H (34.0-71.1) % Lymph % (Auto) 21.7 (19.3-51.7) % Beckham % (Auto) 4.6 L (4.7-12.5) % Eos % (Auto) 0 L (0.7-5.8) Baso % (Auto) 0.0 L (0.1-1.2) % Neut # (Auto) 2.54 (1.56-6.13) K/mm3 Lymph # (Auto) 0.75 L (1.18-3.74) K/mm3 Beckham # (Auto) 0.16 L (0.24-0.36) K/mm3 Eos # (Auto) 0.00 L (0.04-0.36) K/mm3 Baso # (Auto) 0.00 L (0.01-0.08) K/mm3 D-Dimer, Quantitative (0.19-0.50) mg/L Sodium 141 (136-145) mEq/L Potassium 4.6 (3.5-5.1) mEq/L Chloride 107 (98-107) mEq/L Carbon Dioxide 25 (21-32) mEq/L Anion Gap 13.6 (5-15) BUN 17 (7-18) mg/dL Creatinine 1.0 (0.55-1.02) mg/dL Est Cr Clr Drug Dosing 43.63 mL/min Estimated GFR (MDRD) 53 (>60) mL/min BUN/Creatinine Ratio 17.0 (14-18) Glucose 161 H (70-99) mg/dL POC Glucose 151 H (70-99) mg/dL Calcium 8.6 (8.5-10.1) mg/dL Magnesium 1.6 L (1.8-2.4) mg/dL Total Bilirubin 0.2 (0.2-1.0) mg/dL AST 32 (15-37) U/L ALT 26 (14-59) U/L Alkaline Phosphatase 74 (46-116) U/L Troponin I (0.00-0.056) ng/mL Total Protein 5.9 L (6.4-8.2) g/dl Albumin 3.0 L (3.4-5.0) g/dl Globulin 2.9 gm/dL Albumin/Globulin Ratio 1.0 (1-2) Triglycerides (<150) mg/dL Lipase 532 H (73-393) U/L SARS-CoV-2 RNA (SHERI) (NEGATIVE) Result Diagrams: 04/09/21 04:55 04/09/21 04:55 Sepsis Event Note - Evaluation Sepsis Screening Result: No Definite Risk - Focused Exam Vital Signs: Vital Signs Temp Pulse Pulse Resp BP BP Pulse Ox 04/09/21 08:54 97.2 F 59 L 20 136/68 99 04/09/21 08:50 54 L 135/68 04/09/21 07:49 04/09/21 02:34 96.9 F 59 L 20 118/81 94 L Pulse Ox 04/09/21 08:54 04/09/21 08:50 04/09/21 07:49 96 04/09/21 02:34 - Problem List & Annotations (1) History of pulmonary embolism SNOMED Code(s): 300932751 Code(s): Z86.711 - PERSONAL HISTORY OF PULMONARY EMBOLISM Status: Chronic Priority: Low Current Visit: No (2) PUD (peptic ulcer disease) SNOMED Code(s): 67921167 Code(s): K27.9 - PEPTIC ULC, SITE UNSP, UNSP AC OR CHR, W/O HEMOR OR PERF Status: Chronic Priority: Low Current Visit: No (3) Mediastinal adenopathy SNOMED Code(s): 07506556 Code(s): R59.0 - LOCALIZED ENLARGED LYMPH NODES Status: Acute Priority: Medium Current Visit: Yes (4) HTN (hypertension) SNOMED Code(s): 07451697 Code(s): I10 - ESSENTIAL (PRIMARY) HYPERTENSION Status: Chronic Priority: Medium Current Visit: No Qualifiers: Hypertension type: unspecified Qualified Code(s): I10 - Essential (primary) hypertension (5) COVID-19 SNOMED Code(s): 011825318 Code(s): U07.1 - COVID-19 Status: Acute Priority: High Current Visit: Yes (6) Lung mass SNOMED Code(s): 864535455 Code(s): R91.8 - OTHER NONSPECIFIC ABNORMAL FINDING OF LUNG FIELD Status: Acute Priority: High Current Visit: Yes (7) Pancreatitis SNOMED Code(s): 74580781 Code(s): K85.90 - ACUTE PANCREATITIS WITHOUT NECROSIS OR INFECTION, UNSP Status: Acute Priority: High Current Visit: Yes Qualifiers: Chronicity: acute Pancreatitis type: unspecified pancreatitis type Acute pancreatitis complication: unspecified Qualified Code(s): K85.90 - Acute pancreatitis without necrosis or infection, unspecified (8) History of RI (myocardial infarction) SNOMED Code(s): 532691742 Code(s): I25.2 - OLD MYOCARDIAL INFARCTION Status: Chronic Priority: Low Current Visit: No (9) Hx of heart artery stent SNOMED Code(s): 729884689, 036463543 Code(s): Z95.5 - PRESENCE OF CORONARY ANGIOPLASTY IMPLANT AND GRAFT Status: Chronic Priority: Low Current Visit: No (10) History of lung cancer SNOMED Code(s): 311550828, 541034368 Code(s): Z85.118 - PERSONAL HISTORY OF MALIGNANT NEOPLASM OF BRONCHUS AND LUNG Status: Chronic Priority: Medium Current Visit: Yes (11) Chronic back pain SNOMED Code(s): 984933866 Code(s): M54.9 - DORSALGIA, UNSPECIFIED; G89.29 - OTHER CHRONIC PAIN Status: Chronic Priority: Medium Current Visit: No Qualifiers: Back pain location: back pain in unspecified location Back pain laterality: unspecified Qualified Code(s): M54.9 - Dorsalgia, unspecified; G89.29 - Other chronic pain (12) Hypomagnesemia SNOMED Code(s): 224124575 Code(s): E83.42 - HYPOMAGNESEMIA Status: Acute Priority: High Current Visit: Yes (13) Elevated d-dimer SNOMED Code(s): 765687329 Code(s): R79.89 - OTHER SPECIFIED ABNORMAL FINDINGS OF BLOOD CHEMISTRY Status: Acute Priority: High Current Visit: Yes - Problem List Review Problem List Initiated/Reviewed/Updated: Yes - My Orders Last 24 Hours: My Active Orders 04/08/21 09:00 Enoxaparin [Lovenox] 40 mg SUBCUT DAILY Famotidine [Pepcid] 20 mg PO DAILY 04/08/21 13:40 Isolation [COMM] Routine Code Status [Resuscitation Status] Stat 04/08/21 14:09 Height and Weight [RC] 04 RT Incentive Spirometry [RC] ASDIRECTED Consult to Case Management/Slate Splitting Supervisor [CONS] Routine Acetaminophen [TylenoL] 650 mg PO Q4H PRN Albuterol [Proventil HFA] See Dose Instructions INH Q2H PRN HYDROmorphone [Dilaudid] 0.5 mg IVPUSH Q2H PRN Ondansetron [Zofran] 4 mg IV Q6H PRN Sertraline [Zoloft] 25 mg PO ASDIRECTED PRN oxyCODONE 5 mg PO Q4H PRN 04/08/21 14:11 Cardiac Monitoring [RC] CONTINUOUS Intake and Output [RC] 04,16 Oxygen Therapy [RC] ASDIRECTED Up With Assistance [RC] ASDIRECTED Vital Signs [RC] 03,09,15,21 04/08/21 14:12 Pulse Oximetry [RC] PRN 04/08/21 14:13 OT Evaluation and Treatment [CONS] Routine PT Evaluation and Treatment [CONS] Routine Respiratory Care Assess and Treatment [CONS] Routine 04/08/21 14:45 Dextrose 5%-Lactated Ringers 1,000 ml IV ASDIRECTED 04/08/21 15:36 hydrALAZINE [Apresoline] 10 mg IVPUSH Q6H PRN 04/08/21 16:04 Positioning, Patient [RC] ASDIRECTED 04/08/21 16:06 Patient Status [ADT] Routine 04/08/21 16:15 dexAMETHasone 6 mg PO DAILY 04/08/21 21:00 Metoprolol Tartrate [Lopressor] 50 mg PO BID 04/09/21 Breakfast Clear Liquid Diet [DIET] 04/09/21 09:00 Aspirin [Halfprin] 81 mg PO DAILY 04/09/21 09:53 Magnesium Sulfate/Water [Magnesium Sulfate in Water 2 GM/50 ML] 2 gm Premix Bag 1 bag IV ONETIME 04/09/21 17:00 Remdesivir 100 mg Sodium Chloride 0.9% [Normal Saline] 100 ml IV Q24H 04/10/21 05:11 CBC WITH AUTO DIFF [HEME] AM COMPREHENSIVE METABOLIC PN,CMP [CHEM] AM MAGNESIUM [CHEM] AM 04/11/21 05:11 CBC WITH AUTO DIFF [HEME] AM COMPREHENSIVE METABOLIC PN,CMP [CHEM] AM MAGNESIUM [CHEM] AM 04/12/21 05:11 CBC WITH AUTO DIFF [HEME] AM COMPREHENSIVE METABOLIC PN,CMP [CHEM] AM MAGNESIUM [CHEM] AM - Assessment Assessment:: Assessment - day of admission 04/08/2021 * 80-year-old female who presents to ED via [facility] with concern over chest pain * History of hypertension, RI with stents in 2005, PUD, lung carcinoid with tumor removed in 1993, and PE * Pain started around 1 AM this morning in her right shoulder blade and then moved to her left shoulder * Noted substernal chest discomfort but no radiation. Denies any diaphoresis or nausea. * Pain lasted approximately 45 minutes and then resolved on its own * Former smoker who quit approximately 20 years ago * On arrival to the ED is denying any current chest pain but states she has chronic back pain * Did take a single baby aspirin at the onset of symptoms around 1 AM. * 12-lead EKG is obtained showing a sinus rhythm at [address] depression in the lateral precordial leads. There is no significant change from prior EKG. * 12-lead EKG was repeated several hours later and shows a sinus rhythm with no change from prior EKG. * Labs are obtained: * WBC of 4.29. * Hemoglobin 13.9. * Platelet 140,000. * Neutrophils are 66.7%. * INR is 1.06. * Sodium 139. * Potassium 4.1. * Chloride 103. * Carbon dioxide 24. * Anion gap 16.1. * BUN is 18. Creatinine 1.1. GFR is 48. * Glucose 96. * Calcium 8.8. * Total bilirubin 0.3. * AST is 34, ALT 27, alkaline phosphatase 85. * Troponin less than 0.017 x2. * Protein 6.6. * Albumin 3.5. * Lipase 683. * SARS-CoV-2 RNA screen is positive. * She is given a baby aspirin and fentanyl for pain. 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 There is evidence of a prior left thoracotomy. 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 * CT scan of the abdomen and pelvis with contrast is obtained showing: * Gastric mucosal thickening which may represent gastritis. Differential includes viral gastritis and peptic ulcer disease. * There is no other acute changes noted in the abdomen or pelvis. * CT angiogram from 01-22-18 is reviewed and no nodule noted on this exam * Subsequently admitted observation on telemetry to the ICU as a MSP overflow for management of her pancreatitis. 04/09/2021 This is an 80-year-old female who was admitted to the ICU as MedSurg overflow with pancreatitis and COVID-19. Yesterday evening patient's oxygen needs increased and she was on 4 L throughout the night. She was therefore started on remdesivir and dexamethasone. She has been weaned down to 2 L today. She states she feels pretty good with improved weakness. She did get some sleep. Her lipase has come down so we will start her on a clear liquid diet and discontinue IV fluids. WBC today is 3.45. Hemoglobin 13.6. Platelet 146,000. Neutrophils 73.7. D-dimer was checked and was elevated at 2.62. Patient is on baby aspirin and prophylaxis Lovenox at this time. Sodium is 141. Potassium 4.6. Chloride 107. Carbon dioxide 25. Anion gap is 13.6. BUN is 17. Creatinine 1.0. GFR is improved to 53. Glucose is 161. Calcium 8.6. Magnesium is 1.6 and will be supplemented. Total bilirubin 0.2. AST is 32, ALT 26, alkaline phosphatase 74. Albumin is 3.0. Patient remains on telemetry and has been noted to be bradycardic. She did drop into the low 40s after receiving her metoprolol. She has been in the upper 50s since then. Discussed with Dr. Julien and we will decrease dosing to 25 mg twice daily for now and monitor. She may require discontinuation of her beta-junior. Otherwise patient states she feels better. Length of stay will depend on improvement of symptoms. Otherwise if patient continues to require oxygen she will remain hospitalized through duration of COVID-19 treatment. - Plan Plan:: Pancreatitis * Clear liquid diet * Discontinue IV fluids * Monitor labs * Triglycerides WNL * No signs of duct dilation or cholelithiasis on CT scan COVID-19 Elevated D-Dimer * Oxygen as needed to keep saturations 88-95% * Remdesivir day 2 * Dexamethasone day 10/12 * Airborne/contact isolation * PRN albuterol MDI * IS/Acapella * RT consultation * Bilateral LE US to rule out DVT Lung mass Mediastinal adenopathy History of lung cancer * Check serum serotonin * Discussed obtaining 5-HIAA however this will be deferred to outpatient due to diet restrictions associated with the test * Follow-up with oncology * Follow-up with PCP Hypomagnesemia * Supplement * Monitor labs PUD (peptic ulcer disease) * Continue home famotidine daily due to creatinine clearance * No acute concerns HTN (hypertension) * Continue home medications * PRN Hydralazine Chronic back pain * PRN pain medications * PT/OT History of RI (myocardial infarction) Hx of heart artery stent * No acute concerns * Troponin negative x2 * Telemetry History of pulmonary embolism * No acute concerns - CTA negative Code status: CPR only PCP: Ching Moraes NP DVT prophylaxis: Lovenox Disposition: Patient admitted ICU as MedSurg overflow observation status with telemetry for management of pancreatitis and further work-up/monitoring for COVID-19 and lung mass. Length of stay likely 4-5 days.
--- NOTE | 2021-04-09 10:53 | CR ---
Chest: Portable view of the chest was obtained. Comparison: Prior two-view chest x-ray of 02/08/21. Subsequent chest CT performed on the same day of chest x-ray is also available. Nodular density is seen within the left mid lung. This finding correlates to a mass as noted on CT angiogram study. Slight scarring is seen within the left base which is stable. Lungs otherwise are clear. Heart size is normal. Slight tortuosity of the thoracic aorta is seen. No acute osseous abnormality is appreciated. Impression: 1. 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 2. Slight scarring within the left base. 3. No other acute abnormality is appreciated. Diagnostic code #9
[2021-04-09] MEDS: REMDESIVIR 100 MG in Sodium Chloride 0.9% 100 ML IV SCH (16:13)
--- NOTE | 2021-04-09 18:53 | US ---
Bilateral lower extremity deep venous ultrasound: Duplex and color Doppler evaluation was obtained of the right and left common femoral, proximal greater saphenous, superficial femoral, popliteal, posterior tibial and peroneal veins. Comparison: No prior venous imaging is available. Findings: Right side shows a lack of compression within the posterior tibial and peroneal veins but shows normal phasic flow and augmentation. There is lack of compression within the posterior tibial vein on the left side. Peroneal vein shows lack of phasic flow with findings suggesting mild amount of focal thrombosis. Other veins within the right and left lower extremities show normal phasic flow, augmentation and compression. Impression: 1. Small amount of clot within the left peroneal vein. 2. Other portions of the deep venous thrombosis study within both extremities appear unremarkable. Diagnostic code #3
[2021-04-09] MEDS: Metoprolol Tartrate 25 MG Tab PO SCH (20:15)
[2021-04-09] MEDS: hydrALAZINE 20 MG/ML SDV IVPUSH PRN (20:16)
[2021-04-09] MEDS: Apixaban 5 MG Tab PO SCH (20:18)
[2021-04-09] MEDS ORDERED: Apixaban 5 MG Tab PO SCH (21:00)
--- NOTE | 2021-04-10 07:18 | PCM.PN ---
- General Info Date of Service: 04/10/21 Admission Dx/Problem (Free Text): Pancreatitis Functional Status: Reports: Pain Controlled, Tolerating Diet, Ambulating, Urinating, Incentive Spirometry, Other (Capella ). Denies: New Symptoms - Review of Systems General: Reports: Weakness (Improving ). Denies: Fever, Fatigue, Malaise, Chills HEENT: Reports: No Symptoms. Denies: Headaches, Sore Throat Pulmonary: Reports: Shortness of Breath (mild ), Cough. Denies: Pleuritic Chest Pain, Sputum Cardiovascular: Reports: Dyspnea on Exertion (mild ). Denies: Chest Pain, Palpitations, Edema Gastrointestinal: Reports: No Symptoms. Denies: Abdominal Pain, Constipation, Diarrhea, Nausea, Vomiting Genitourinary: Reports: No Symptoms. Denies: Pain Musculoskeletal: Reports: Back Pain Skin: Reports: No Symptoms. Denies: Cyanosis Neurological: Reports: No Symptoms. Denies: Confusion, Pre-Existing Deficit, Difficulty Walking, Gait Disturbance Psychiatric: Reports: No Symptoms - Patient Data Vitals - Most Recent: Last Vital Signs Temp 97.0 F 04/10/21 03:00 Pulse 50 L 04/10/21 03:00 Resp 19 04/10/21 03:00 BP 114/54 L 04/10/21 03:00 Pulse Ox 93 L 04/10/21 03:00 Weight - Most Recent: 198 lb 11.2 oz I&O - Last 24 Hours: Intake & Output 04/09/21 04/10/21 04/10/21 22:59 06:59 14:59 Intake Total 1010 500 Balance 1010 500 Lab Results Last 24 Hours: Laboratory Results - last 24 hr 04/10/21 04/10/21 Range/Units 05:40 05:40 WBC 4.78 (3.98-10.04) K/mm3 RBC 4.72 (3.98-5.22) M/mm3 Hgb 13.7 (11.2-15.7) gm/dl Hct 43.2 (34.1-44.9) % MCV 91.5 (79.4-94.8) fl MCH 29.0 (25.6-32.2) pg MCHC 31.7 L (32.2-35.5) g/dl RDW Std Deviation 44.9 (36.4-46.3) fL Plt Count 147 L (182-369) K/mm3 MPV 10.6 (9.4-12.3) fl Neut % (Auto) 63.9 (34.0-71.1) % Lymph % (Auto) 19.0 L (19.3-51.7) % [place] % (Auto) 16.5 H (4.7-12.5) % Eos % (Auto) 0.2 L (0.7-5.8) Baso % (Auto) 0.0 L (0.1-1.2) % Neut # (Auto) 3.05 (1.56-6.13) K/mm3 Lymph # (Auto) 0.91 L (1.18-3.74) K/mm3 [place] # (Auto) 0.79 H (0.24-0.36) K/mm3 Eos # (Auto) 0.01 L (0.04-0.36) K/mm3 Baso # (Auto) 0.00 L (0.01-0.08) K/mm3 Manual Slide Review Abnormal smear Sodium 140 (136-145) mEq/L Potassium 4.2 (3.5-5.1) mEq/L Chloride 106 (98-107) mEq/L Carbon Dioxide 25 (21-32) mEq/L Anion Gap 13.2 (5-15) BUN 18 (7-18) mg/dL Creatinine 0.9 (0.55-1.02) mg/dL Est Cr Clr Drug Dosing 48.48 mL/min Estimated GFR (MDRD) > 60 (>60) mL/min BUN/Creatinine Ratio 20.0 H (14-18) Glucose 99 (70-99) mg/dL Calcium 8.3 L (8.5-10.1) mg/dL Magnesium 1.9 (1.8-2.4) mg/dL Total Bilirubin 0.2 (0.2-1.0) mg/dL AST 33 (15-37) U/L ALT 22 (14-59) U/L Alkaline Phosphatase 67 (46-116) U/L Total Protein 5.8 L (6.4-8.2) g/dl Albumin 2.9 L (3.4-5.0) g/dl Globulin 2.9 gm/dL Albumin/Globulin Ratio 1.0 (1-2) Med Orders - Current: Current Medications Acetaminophen (Acetaminophen 325 Mg Tab) 650 mg PO Q4H PRN PRN Reason: Pain (Mild 1-3)/fever Last Admin: 04/09/21 20:15 Dose: 650 mg Documented by: Albuterol (Albuterol 6.7 Gm Inhaler) 0 gm INH Q2H PRN PRN Reason: SOB/Wheezing Apixaban (Apixaban 5 Mg Tab) 10 mg PO BID [facility] Stop: 04/16/21 09:01 Last Admin: 04/09/21 20:18 Dose: 10 mg Documented by: Apixaban (Apixaban 5 Mg Tab) 5 mg PO BID [facility] Dexamethasone (Dexamethasone 4 Mg Tab) 6 mg PO DAILY [facility] Stop: 04/17/21 09:01 Last Admin: 04/09/21 08:49 Dose: 6 mg Documented by: Famotidine (Famotidine 20 Mg Tab) 20 mg PO DAILY [facility] Last Admin: 04/09/21 08:51 Dose: 20 mg Documented by: Hydralazine HCl (Hydralazine 20 Mg/Ml Sdv) 10 mg IVPUSH Q6H PRN PRN Reason: Hypertension Last Admin: 04/09/21 20:16 Dose: 10 mg Documented by: Hydromorphone HCl (Hydromorphone 0.5 Mg/0.5 Ml Syringe) 0.5 mg IVPUSH Q2H PRN PRN Reason: Pain (severe 7-10) Last Admin: 04/08/21 16:10 Dose: 0.5 mg Documented by: Remdesivir 100 mg/ Sodium (Chloride) 100 mls @ 100 mls/hr IV Q24H [facility] Stop: 04/12/21 17:59 Last Admin: 04/09/21 16:13 Dose: 100 mls/hr Documented by: Metoprolol Tartrate (Metoprolol Tartrate 25 Mg Tab) 25 mg PO Q12H [facility] Last Admin: 04/09/21 20:15 Dose: 25 mg Documented by: Ondansetron HCl (Ondansetron 4 Mg/2 Ml Sdv) 4 mg IV Q6H PRN PRN Reason: Nausea/Vomiting Last Admin: 04/08/21 17:47 Dose: 4 mg Documented by: Ondansetron HCl (Ondansetron 4 Mg Tab.Dis) 4 mg PO Q6H PRN PRN Reason: Nausea/Vomiting Oxycodone HCl (Oxycodone 5 Mg Tab) 5 mg PO Q4H PRN PRN Reason: Pain (moderate 4-6) Last Admin: 04/09/21 20:16 Dose: 5 mg Documented by: Sertraline HCl (Sertraline 25 Mg Tab) 25 mg PO ASDIRECTED PRN PRN Reason: Anxiety Last Admin: 04/09/21 23:01 Dose: 25 mg Documented by: Discontinued Medications Apixaban (Apixaban 5 Mg Tab) 5 mg PO BID [facility] Aspirin (Aspirin 81 Mg Tab.Chew) 324 mg PO ONETIME ONE Stop: 04/08/21 08:10 Last Admin: 04/08/21 09:30 Dose: 324 mg Documented by: Aspirin (Aspirin 81 Mg Tab.Ec) 81 mg PO DAILY [facility] Last Admin: 04/09/21 08:49 Dose: 81 mg Documented by: Enoxaparin Sodium (Enoxaparin 40 Mg/0.4 Ml Syringe) 40 mg SUBCUT DAILY [facility] Last Admin: 04/09/21 08:50 Dose: 40 mg Documented by: Fentanyl (Fentanyl 100 Mcg/2 Ml Sdv) 25 mcg IVPUSH ONETIME ONE Stop: 04/08/21 09:53 Last Admin: 04/08/21 09:57 Dose: 25 mcg Documented by: Fentanyl (Fentanyl 100 Mcg/2 Ml Sdv) 25 mcg IVPUSH ONETIME ONE Stop: 04/08/21 10:49 Last Admin: 04/08/21 10:58 Dose: 25 mcg Documented by: Sodium Chloride (Normal Saline) 100 mls @ 75 mls/hr IV ASDIRECTED [facility] Dextrose/Lactated Ringer's (Dextrose 5%-Lactated Ringers) 1,000 mls @ 100 mls/hr IV ASDIRECTED [facility] Last Admin: 04/09/21 00:18 Dose: 100 mls/hr Documented by: Remdesivir 200 mg/ Sodium (Chloride) 250 mls @ 250 mls/hr IV Q24H [facility] Stop: 04/08/21 17:29 Last Admin: 04/08/21 16:39 Dose: 250 mls/hr Documented by: Magnesium Sulfate 2 gm/ Premix 50 mls @ 25 mls/hr IV ONETIME ONE Stop: 04/09/21 11:52 Last Admin: 04/09/21 10:25 Dose: 25 mls/hr Documented by: Iopamidol (Iopamidol 755 Mg/Ml 100 Ml Bottle) 100 ml IVPUSH ONETIME ONE Stop: 04/08/21 09:56 Last Admin: 04/08/21 10:17 Dose: 100 ml Documented by: Iopamidol (Iopamidol 755 Mg/Ml 50 Ml Bottle) 25 ml IVPUSH ONETIME ONE Stop: 04/08/21 09:59 Last Admin: 04/08/21 10:17 Dose: 25 ml Documented by: Metoprolol Tartrate (Metoprolol Tartrate 50 Mg Tab) 50 mg PO BID [facility] Last Admin: 04/09/21 08:50 Dose: 50 mg Documented by: - Exam Quality Assessment: Supplemental Oxygen (1L), DVT Prophylaxis. No: Urine Catheter General: Alert, Oriented, Cooperative, No Acute Distress HEENT: Pupils Equal, Pupils Reactive, Mucous Membr. Moist/[place] Neck: Supple, Trachea Midline Lungs: Clear to Auscultation, Normal Respiratory Effort Cardiovascular: Regular Rhythm, Bradycardia GI/Abdominal Exam: Normal Bowel Sounds, Soft, Non-Tender, No Distention (Female) Exam: Deferred Back Exam: Normal Inspection, Full Range of Motion Extremities: Normal Inspection, Normal Range of Motion, Non-Tender, No Pedal Ed faustino, Normal Capillary Refill Peripheral Pulses: 2+: Radial (L), Radial (R), Dorsalis Pedis (L), Dorsalis Pedis (R) Skin: Warm, Dry, Intact Neurological: No New Focal Deficit Psy/Mental Status: Alert, Normal Affect, Normal Mood - Patient Data Lab Results Last 24 hrs: Laboratory Results - last 24 hr 04/10/21 04/10/21 Range/Units 05:40 05:40 WBC 4.78 (3.98-10.04) K/mm3 RBC 4.72 (3.98-5.22) M/mm3 Hgb 13.7 (11.2-15.7) gm/dl Hct 43.2 (34.1-44.9) % MCV 91.5 (79.4-94.8) fl MCH 29.0 (25.6-32.2) pg MCHC 31.7 L (32.2-35.5) g/dl RDW Std Deviation 44.9 (36.4-46.3) fL Plt Count 147 L (182-369) K/mm3 MPV 10.6 (9.4-12.3) fl Neut % (Auto) 63.9 (34.0-71.1) % Lymph % (Auto) 19.0 L (19.3-51.7) % [place] % (Auto) 16.5 H (4.7-12.5) % Eos % (Auto) 0.2 L (0.7-5.8) Baso % (Auto) 0.0 L (0.1-1.2) % Neut # (Auto) 3.05 (1.56-6.13) K/mm3 Lymph # (Auto) 0.91 L (1.18-3.74) K/mm3 [place] # (Auto) 0.79 H (0.24-0.36) K/mm3 Eos # (Auto) 0.01 L (0.04-0.36) K/mm3 Baso # (Auto) 0.00 L (0.01-0.08) K/mm3 Manual Slide Review Abnormal smear Sodium 140 (136-145) mEq/L Potassium 4.2 (3.5-5.1) mEq/L Chloride 106 (98-107) mEq/L Carbon Dioxide 25 (21-32) mEq/L Anion Gap 13.2 (5-15) BUN 18 (7-18) mg/dL Creatinine 0.9 (0.55-1.02) mg/dL Est Cr Clr Drug Dosing 48.48 mL/min Estimated GFR (MDRD) > 60 (>60) mL/min BUN/Creatinine Ratio 20.0 H (14-18) Glucose 99 (70-99) mg/dL Calcium 8.3 L (8.5-10.1) mg/dL Magnesium 1.9 (1.8-2.4) mg/dL Total Bilirubin 0.2 (0.2-1.0) mg/dL AST 33 (15-37) U/L ALT 22 (14-59) U/L Alkaline Phosphatase 67 (46-116) U/L Total Protein 5.8 L (6.4-8.2) g/dl Albumin 2.9 L (3.4-5.0) g/dl Globulin 2.9 gm/dL Albumin/Globulin Ratio 1.0 (1-2) Result Diagrams: 04/10/21 05:40 04/10/21 05:40 Sepsis Event Note - Evaluation Sepsis Screening Result: No Definite Risk - Focused Exam Vital Signs: Vital Signs Temp Pulse Pulse Resp BP BP Pulse Ox 04/10/21 03:00 97.0 F 50 L 19 114/54 L 93 L 04/09/21 20:31 59 L 119/52 L 04/09/21 20:16 96.9 F 60 20 153/79 H 94 L 04/09/21 20:15 60 153/79 H - Problem List & Annotations (1) History of pulmonary embolism SNOMED Code(s): 559018997 Code(s): Z86.711 - PERSONAL HISTORY OF PULMONARY EMBOLISM Status: Chronic Priority: Low Current Visit: No (2) PUD (peptic ulcer disease) SNOMED Code(s): 12666651 Code(s): K27.9 - PEPTIC ULC, SITE UNSP, UNSP AC OR CHR, W/O HEMOR OR PERF Status: Chronic Priority: Low Current Visit: No (3) Mediastinal adenopathy SNOMED Code(s): 43170811 Code(s): R59.0 - LOCALIZED ENLARGED LYMPH NODES Status: Acute Priority: Medium Current Visit: Yes (4) HTN (hypertension) SNOMED Code(s): 83503904 Code(s): I10 - ESSENTIAL (PRIMARY) HYPERTENSION Status: Chronic Priority: Medium Current Visit: No Qualifiers: Hypertension type: unspecified Qualified Code(s): I10 - Essential (primary) hypertension (5) COVID-19 SNOMED Code(s): 301059506 Code(s): U07.1 - COVID-19 Status: Acute Priority: High Current Visit: Yes (6) Lung mass SNOMED Code(s): 043348878 Code(s): R91.8 - OTHER NONSPECIFIC ABNORMAL FINDING OF LUNG FIELD Status: Acute Priority: High Current Visit: Yes (7) Pancreatitis SNOMED Code(s): 30072401 Code(s): K85.90 - ACUTE PANCREATITIS WITHOUT NECROSIS OR INFECTION, UNSP Status: Acute Priority: High Current Visit: Yes Qualifiers: Chronicity: acute Pancreatitis type: unspecified pancreatitis type Acute pancreatitis complication: unspecified Qualified Code(s): K85.90 - Acute pancreatitis without necrosis or infection, unspecified (8) History of OK (myocardial infarction) SNOMED Code(s): 998414149 Code(s): I25.2 - OLD MYOCARDIAL INFARCTION Status: Chronic Priority: Low Current Visit: No (9) Hx of heart artery stent SNOMED Code(s): 746458965, 236748871 Code(s): Z95.5 - PRESENCE OF CORONARY ANGIOPLASTY IMPLANT AND GRAFT Status: Chronic Priority: Low Current Visit: No (10) History of lung cancer SNOMED Code(s): 013575095, 761061691 Code(s): Z85.118 - PERSONAL HISTORY OF MALIGNANT NEOPLASM OF BRONCHUS AND LUNG Status: Chronic Priority: Medium Current Visit: Yes (11) Chronic back pain SNOMED Code(s): 605924986 Code(s): M54.9 - DORSALGIA, UNSPECIFIED; G89.29 - OTHER CHRONIC PAIN Status: Chronic Priority: Medium Current Visit: No Qualifiers: Back pain location: back pain in unspecified location Back pain laterality: unspecified Qualified Code(s): M54.9 - Dorsalgia, unspecified; G89.29 - Other chronic pain (12) Hypomagnesemia SNOMED Code(s): 702479659 Code(s): E83.42 - HYPOMAGNESEMIA Status: Acute Priority: High Current Visit: Yes (13) Elevated d-dimer SNOMED Code(s): 934705263 Code(s): R79.89 - OTHER SPECIFIED ABNORMAL FINDINGS OF BLOOD CHEMISTRY Status: Acute Priority: High Current Visit: Yes (14) DVT (deep venous thrombosis) SNOMED Code(s): 104663423 Code(s): I82.409 - ACUTE EMBOLISM AND THOMBOS UNSP DEEP VN UNSP LOWER EXTRE MITY Status: Acute Priority: High Current Visit: Yes Qualifiers: DVT location: lower extremity Affected thrombotic vein of extremity: unspecified vein of extremity Chronicity: acute Laterality: unspecified laterality Qualified Code(s): I82.409 - Acute embolism and thrombosis of unspecified deep veins of unspecified lower extremity (15) Bradycardia SNOMED Code(s): 23562078 Code(s): R00.1 - BRADYCARDIA, UNSPECIFIED Status: Acute Priority: Medium Current Visit: Yes (16) [place] filter in place SNOMED Code(s): 135721282798494 Code(s): Z95.828 - PRESENCE OF OTHER VASCULAR IMPLANTS AND GRAFTS Status: Chronic Priority: Medium Current Visit: No - Problem List Review Problem List Initiated/Reviewed/Updated: Yes - My Orders Last 24 Hours: My Active Orders 04/09/21 Breakfast Clear Liquid Diet [DIET] 04/09/21 17:00 Remdesivir 100 mg Sodium Chloride 0.9% [Normal Saline] 100 ml IV Q24H 04/09/21 21:00 Metoprolol Tartrate [Lopressor] 25 mg PO Q12H 04/11/21 05:11 CBC WITH AUTO DIFF [HEME] AM COMPREHENSIVE METABOLIC PN,CMP [CHEM] AM MAGNESIUM [CHEM] AM 04/12/21 05:11 CBC WITH AUTO DIFF [HEME] AM COMPREHENSIVE METABOLIC PN,CMP [CHEM] AM MAGNESIUM [CHEM] AM - Assessment Assessment:: Assessment - day of admission 04/08/2021 * 80-year-old female who presents to ED via [facility] with concern over chest pain * History of hypertension, OK with stents in 2005, PUD, lung carcinoid with tumor removed in 1993, and PE * Pain started around 1 AM this morning in her right shoulder blade and then moved to her left shoulder * Noted substernal chest discomfort but no radiation. Denies any diaphoresis or nausea. * Pain lasted approximately 45 minutes and then resolved on its own * Former smoker who quit approximately 20 years ago * On arrival to the ED is denying any current chest pain but states she has chronic back pain * Did take a single baby aspirin at the onset of symptoms around 1 AM. * 12-lead EKG is obtained showing a sinus rhythm at [address] depression in the lateral precordial leads. There is no significant change from prior EKG. * 12-lead EKG was repeated several hours later and shows a sinus rhythm with no change from prior EKG. * Labs are obtained: * WBC of 4.29. * Hemoglobin 13.9. * Platelet 140,000. * Neutrophils are 66.7%. * INR is 1.06. * Sodium 139. * Potassium 4.1. * Chloride 103. * Carbon dioxide 24. * Anion gap 16.1. * BUN is 18. Creatinine 1.1. GFR is 48. * Glucose 96. * Calcium 8.8. * Total bilirubin 0.3. * AST is 34, ALT 27, alkaline phosphatase 85. * Troponin less than 0.017 x2. * Protein 6.6. * Albumin 3.5. * Lipase 683. * SARS-CoV-2 RNA screen is positive. * She is given a baby aspirin and fentanyl for pain. 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 There is evidence of a prior left thoracotomy. 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 * CT scan of the abdomen and pelvis with contrast is obtained showing: * Gastric mucosal thickening which may represent gastritis. Differential includes viral gastritis and peptic ulcer disease. * There is no other acute changes noted in the abdomen or pelvis. * CT angiogram from 01-22-18 is reviewed and no nodule noted on this exam * Subsequently admitted observation on telemetry to the ICU as a MSP overflow for management of her pancreatitis. 04/09/2021 This is an 80-year-old female who was admitted to the ICU as MedSurg overflow with pancreatitis and COVID-19. Yesterday evening patient's oxygen needs increased and she was on 4 L throughout the night. She was therefore started on remdesivir and dexamethasone. She has been weaned down to 2 L today. She states she feels pretty good with improved weakness. She did get some sleep. Her lipase has come down so we will start her on a clear liquid diet and discontinue IV fluids. WBC today is 3.45. Hemoglobin 13.6. Platelet 146,000. Neutrophils 73.7. D-dimer was checked and was elevated at 2.62. Patient is on baby aspirin and prophylaxis Lovenox at this time. Sodium is 141. Potassium 4.6. Chloride 107. Carbon dioxide 25. Anion gap is 13.6. BUN is 17. Creatinine 1.0. GFR is improved to 53. Glucose is 161. Calcium 8.6. Magnesium is 1.6 and will be supplemented. Total bilirubin 0.2. AST is 32, ALT 26, alkaline phosphatase 74. Albumin is 3.0. Patient remains on telemetry and has been noted to be bradycardic. She did drop into the low 40s after receiving her metoprolol. She has been in the upper 50s since then. Discussed with Dr. Julien and we will decrease dosing to 25 mg twice daily for now and monitor. She may require discontinuation of her beta-junior. Otherwise patient states she feels better. Length of stay will depend on improvement of symptoms. Otherwise if patient continues to require oxygen she will remain hospitalized through duration of COVID-19 treatment. 04/10/2021 80-year-old female admitted to the ICU as MedSurg overflow due to pancreatitis and COVID-19. Patient has successfully been weaned down to 1 L of oxygen. She is starting to complain of a cough and she states like she feels some mucus but cannot quite get it up. Today is day 3 of remdesivir and dexamethasone. She states she feels better. She has been tolerating a clear liquid diet so we will advance her to a soft diet. If this goes well we will advance her to a regular diet this evening. Metoprolol was decreased from 50 mg twice daily to 25 mg twice daily and patient continues to have heart rate in the low to mid 50s. We will therefore stop her home metoprolol and continue to monitor telemetry. Venous Doppler study did return positive for a small amount of clot within the left peroneal vein. She was therefore started on 10 mg twice daily Eliquis for 7 days. She should then decrease her dosing to 5 mg twice daily. Labs today show WBC of 4.78. Hemoglobin 13.7. Platelet 147,000. Neutrophils 63.9%. Sodium is 140. Potassium 4.2. Chloride 106. Carbon oxide 25. Anion gap 13.2. BUN is 18. Creatinine 0.9. GFR greater than 60. Glucose was 99. Calcium 8.3. Magnesium 1.9. Total bilirubin 0.2. AST is 33, ALT 22, alkaline phosphatase 67. Protein is 5.8. Albumin 2.9. Patient will remain hospitalized for duration of COVID-19 treatment. We will continue to attempt to wean off oxygen as patient tolerates. - Plan Plan:: Pancreatitis * Soft diet - advance as tolerated * Discontinue IV fluids * Monitor labs * Triglycerides WNL * No signs of duct dilation or cholelithiasis on CT scan * Draw [facility] [place] consultation COVID-19 * Oxygen as needed to keep saturations 88-95% * Remdesivir day 3/5 * Dexamethasone day 3/10 * Airborne/contact isolation * PRN albuterol MDI * IS/Acapella * RT consultation Lung mass Mediastinal adenopathy History of lung cancer * Check serum serotonin * Discussed obtaining 5-HIAA however this will be deferred to outpatient due to diet restrictions associated with the test * Follow-up with oncology * Follow-up with PCP Hypomagnesemia,resolved * Supplement PRN * Monitor labs PUD (peptic ulcer disease) * Continue home famotidine daily due to creatinine clearance * No acute concerns HTN (hypertension) * Continue home medications * PRN Hydralazine Chronic back pain * PRN pain medications * PT/OT History of OK (myocardial infarction) Hx of heart artery stent * No acute concerns * Troponin negative x2 * Telemetry History of pulmonary embolism DVT Elevated D-Dimer [place] filter in place * Start Eliquis daily for DVT treatment/COVID-19 - 10mg BID x7 days and then 5mg BID thereafter * PCP follow-up Code status: CPR only PCP: Ching Moraes NP DVT prophylaxis: [place] Disposition: Patient admitted ICU as MedSurg overflow observation status with telemetry for management of pancreatitis and further work-up/monitoring for COVID-19 and lung mass. Length of stay likely 4-5 days.
[2021-04-10] MEDS: Famotidine 20 MG Tab PO SCH (08:10)
[2021-04-10] MEDS: Apixaban 5 MG Tab PO SCH ×2 (08:11→20:24)
[2021-04-10] MEDS: Dexamethasone 4 MG Tab PO SCH (08:12)
[2021-04-10] MEDS: Metoprolol Tartrate 25 MG Tab PO SCH (08:24)
[2021-04-10] MEDS: oxyCODONE 5 MG Tab PO PRN (12:08)
[2021-04-10] MEDS: Acetaminophen 325 MG Tab PO PRN (12:08)
[2021-04-10] MEDS: REMDESIVIR 100 MG in Sodium Chloride 0.9% 100 ML IV SCH (16:34)
[2021-04-11] MEDS: Famotidine 20 MG Tab PO SCH (09:44)
[2021-04-11] MEDS: Dexamethasone 4 MG Tab PO SCH (09:44)
[2021-04-11] MEDS: Apixaban 5 MG Tab PO SCH ×2 (09:48→21:34)
--- NOTE | 2021-04-11 10:20 | PCM.PN ---
- General Info Date of Service: 04/11/21 Admission Dx/Problem (Free Text): Pancreatitis Subjective Update: Nayla was seen on rounds this morning, and states she is feeling much better. Denies any complaints of pain or discomfort. Her only real complaint is that she is got fairly persistent nonproductive cough. She continues to be on oxygen at 1 L per nasal cannula. She is denying any shortness of breath. She has been using her incentive spirometer and Acapella which are at the bedside. She is tolerating her diet and states this was advanced yesterday. Functional Status: Reports: Pain Controlled, Tolerating Diet, Ambulating (In the room due to Covid precautions), Urinating, Incentive Spirometry - Review of Systems General: Reports: No Symptoms HEENT: Reports: No Symptoms Pulmonary: Reports: Cough (Persistent nonproductive cough). Denies: Shortness of Breath, Pleuritic Chest Pain, Wheezing Cardiovascular: Reports: No Symptoms. Denies: Chest Pain, Edema Gastrointestinal: Reports: No Symptoms. Denies: Constipation, Diarrhea, Nausea, Vomiting Genitourinary: Reports: No Symptoms Musculoskeletal: Reports: No Symptoms Skin: Reports: No Symptoms Neurological: Reports: No Symptoms Psychiatric: Reports: No Symptoms - Patient Data Vitals - Most Recent: Last Vital Signs Temp 97.9 F 04/11/21 08:03 Pulse 74 04/11/21 08:03 Resp 18 04/11/21 08:03 BP 106/69 04/11/21 08:03 Pulse Ox 91 L 04/11/21 08:19 Weight - Most Recent: 195 lb 9.6 oz I&O - Last 24 Hours: Intake & Output 04/10/21 04/11/21 04/11/21 22:59 06:59 14:59 Intake Total 160 300 Output Total 100 400 Balance 60 -100 Lab Results Last 24 Hours: Laboratory Results - last 24 hr 04/11/21 04/11/21 Range/Units 06:27 06:27 WBC 4.40 (3.98-10.04) K/mm3 RBC 4.66 (3.98-5.22) M/mm3 Hgb 13.8 (11.2-15.7) gm/dl Hct 42.1 (34.1-44.9) % MCV 90.3 (79.4-94.8) fl MCH 29.6 (25.6-32.2) pg MCHC 32.8 (32.2-35.5) g/dl RDW Std Deviation 44.3 (36.4-46.3) fL Plt Count 138 L (182-369) K/mm3 MPV 10.6 (9.4-12.3) fl Neut % (Auto) 63.5 (34.0-71.1) % Lymph % (Auto) 21.1 (19.3-51.7) % [place] % (Auto) 15.2 H (4.7-12.5) % Eos % (Auto) 0 L (0.7-5.8) Baso % (Auto) 0.2 (0.1-1.2) % Neut # (Auto) 2.79 (1.56-6.13) K/mm3 Lymph # (Auto) 0.93 L (1.18-3.74) K/mm3 [place] # (Auto) 0.67 H (0.24-0.36) K/mm3 Eos # (Auto) 0.00 L (0.04-0.36) K/mm3 Baso # (Auto) 0.01 (0.01-0.08) K/mm3 Manual Slide Review Normal smear Sodium 139 (136-145) mEq/L Potassium 4.3 (3.5-5.1) mEq/L Chloride 105 (98-107) mEq/L Carbon Dioxide 27 (21-32) mEq/L Anion Gap 11.3 (5-15) BUN 23 H (7-18) mg/dL Creatinine 1.0 (0.55-1.02) mg/dL Est Cr Clr Drug Dosing 43.63 mL/min Estimated GFR (MDRD) 53 (>60) mL/min BUN/Creatinine Ratio 23.0 H (14-18) Glucose 90 (70-99) mg/dL Calcium 8.5 (8.5-10.1) mg/dL Magnesium 1.8 (1.8-2.4) mg/dL Total Bilirubin 0.2 (0.2-1.0) mg/dL AST 35 (15-37) U/L ALT 34 (14-59) U/L Alkaline Phosphatase 65 (46-116) U/L Total Protein 5.8 L (6.4-8.2) g/dl Albumin 3.1 L (3.4-5.0) g/dl Globulin 2.7 gm/dL Albumin/Globulin Ratio 1.2 (1-2) Med Orders - Current: Current Medications Acetaminophen (Acetaminophen 325 Mg Tab) 650 mg PO Q4H PRN PRN Reason: Pain (Mild 1-3)/fever Last Admin: 04/10/21 12:08 Dose: 650 mg Documented by: Albuterol (Albuterol 6.7 Gm Inhaler) 0 gm INH Q2H PRN PRN Reason: SOB/Wheezing Apixaban (Apixaban 5 Mg Tab) 10 mg PO BID [facility] Stop: 04/16/21 09:01 Last Admin: 04/11/21 09:48 Dose: 10 mg Documented by: Apixaban (Apixaban 5 Mg Tab) 5 mg PO BID [facility] Dexamethasone (Dexamethasone 4 Mg Tab) 6 mg PO DAILY [facility] Stop: 04/17/21 09:01 Last Admin: 04/11/21 09:44 Dose: 6 mg Documented by: Famotidine (Famotidine 20 Mg Tab) 20 mg PO DAILY [facility] Last Admin: 04/11/21 09:44 Dose: 20 mg Documented by: Hydralazine HCl (Hydralazine 20 Mg/Ml Sdv) 10 mg IVPUSH Q6H PRN PRN Reason: Hypertension Last Admin: 04/09/21 20:16 Dose: 10 mg Documented by: Hydromorphone HCl (Hydromorphone 0.5 Mg/0.5 Ml Syringe) 0.5 mg IVPUSH Q2H PRN PRN Reason: Pain (severe 7-10) Last Admin: 04/08/21 16:10 Dose: 0.5 mg Documented by: Remdesivir 100 mg/ Sodium (Chloride) 100 mls @ 100 mls/hr IV Q24H [facility] Stop: 04/12/21 17:59 Last Admin: 04/10/21 16:34 Dose: 100 mls/hr Documented by: Ondansetron HCl (Ondansetron 4 Mg/2 Ml Sdv) 4 mg IV Q6H PRN PRN Reason: Nausea/Vomiting Last Admin: 04/08/21 17:47 Dose: 4 mg Documented by: Ondansetron HCl (Ondansetron 4 Mg Tab.Dis) 4 mg PO Q6H PRN PRN Reason: Nausea/Vomiting Oxycodone HCl (Oxycodone 5 Mg Tab) 5 mg PO Q4H PRN PRN Reason: Pain (moderate 4-6) Last Admin: 04/10/21 12:08 Dose: 5 mg Documented by: Sertraline HCl (Sertraline 25 Mg Tab) 25 mg PO ASDIRECTED PRN PRN Reason: Anxiety Last Admin: 04/09/21 23:01 Dose: 25 mg Documented by: Discontinued Medications Apixaban (Apixaban 5 Mg Tab) 5 mg PO BID [facility] Aspirin (Aspirin 81 Mg Tab.Chew) 324 mg PO ONETIME ONE Stop: 04/08/21 08:10 Last Admin: 04/08/21 09:30 Dose: 324 mg Documented by: Aspirin (Aspirin 81 Mg Tab.Ec) 81 mg PO DAILY [facility] Last Admin: 04/09/21 08:49 Dose: 81 mg Documented by: Enoxaparin Sodium (Enoxaparin 40 Mg/0.4 Ml Syringe) 40 mg SUBCUT DAILY [facility] Last Admin: 04/09/21 08:50 Dose: 40 mg Documented by: Fentanyl (Fentanyl 100 Mcg/2 Ml Sdv) 25 mcg IVPUSH ONETIME ONE Stop: 04/08/21 09:53 Last Admin: 04/08/21 09:57 Dose: 25 mcg Documented by: Fentanyl (Fentanyl 100 Mcg/2 Ml Sdv) 25 mcg IVPUSH ONETIME ONE Stop: 04/08/21 10:49 Last Admin: 04/08/21 10:58 Dose: 25 mcg Documented by: Sodium Chloride (Normal Saline) 100 mls @ 75 mls/hr IV ASDIRECTED [facility] Dextrose/Lactated Ringer's (Dextrose 5%-Lactated Ringers) 1,000 mls @ 100 mls/hr IV ASDIRECTED [facility] Last Admin: 04/09/21 00:18 Dose: 100 mls/hr Documented by: Remdesivir 200 mg/ Sodium (Chloride) 250 mls @ 250 mls/hr IV Q24H [facility] Stop: 04/08/21 17:29 Last Admin: 04/08/21 16:39 Dose: 250 mls/hr Documented by: Magnesium Sulfate 2 gm/ Premix 50 mls @ 25 mls/hr IV ONETIME ONE Stop: 04/09/21 11:52 Last Admin: 04/09/21 10:25 Dose: 25 mls/hr Documented by: Iopamidol (Iopamidol 755 Mg/Ml 100 Ml Bottle) 100 ml IVPUSH ONETIME ONE Stop: 04/08/21 09:56 Last Admin: 04/08/21 10:17 Dose: 100 ml Documented by: Iopamidol (Iopamidol 755 Mg/Ml 50 Ml Bottle) 25 ml IVPUSH ONETIME ONE Stop: 04/08/21 09:59 Last Admin: 04/08/21 10:17 Dose: 25 ml Documented by: Metoprolol Tartrate (Metoprolol Tartrate 50 Mg Tab) 50 mg PO BID [facility] Last Admin: 04/09/21 08:50 Dose: 50 mg Documented by: Metoprolol Tartrate (Metoprolol Tartrate 25 Mg Tab) 25 mg PO Q12H [facility] Last Admin: 04/10/21 08:24 Dose: Not Given Documented by: - Exam Quality Assessment: Supplemental Oxygen (1 L per nasal cannula), DVT Prophylaxis (Eliquis) General: Alert, Oriented, Cooperative, No Acute Distress Neck: Supple, Trachea Midline Lungs: Clear to Auscultation, Normal Respiratory Effort Cardiovascular: Regular Rate, Regular Rhythm GI/Abdominal Exam: Normal Bowel Sounds, Soft, Non-Tender, No Distention (Female) Exam: Deferred Back Exam: Normal Inspection Extremities: Normal Inspection, Normal Range of Motion, Non-Tender, No Pedal Edema, Normal Capillary Refill Peripheral Pulses: 1+: Radial (L), Radial (R) Skin: Warm, Dry, Intact Neurological: No New Focal Deficit Psy/Mental Status: Alert, Normal Affect, Normal Mood - Patient Data Lab Results Last 24 hrs: Laboratory Results - last 24 hr 04/11/21 04/11/21 Range/Units 06:27 06:27 WBC 4.40 (3.98-10.04) K/mm3 RBC 4.66 (3.98-5.22) M/mm3 Hgb 13.8 (11.2-15.7) gm/dl Hct 42.1 (34.1-44.9) % MCV 90.3 (79.4-94.8) fl MCH 29.6 (25.6-32.2) pg MCHC 32.8 (32.2-35.5) g/dl RDW Std Deviation 44.3 (36.4-46.3) fL Plt Count 138 L (182-369) K/mm3 MPV 10.6 (9.4-12.3) fl Neut % (Auto) 63.5 (34.0-71.1) % Lymph % (Auto) 21.1 (19.3-51.7) % [place] % (Auto) 15.2 H (4.7-12.5) % Eos % (Auto) 0 L (0.7-5.8) Baso % (Auto) 0.2 (0.1-1.2) % Neut # (Auto) 2.79 (1.56-6.13) K/mm3 Lymph # (Auto) 0.93 L (1.18-3.74) K/mm3 [place] # (Auto) 0.67 H (0.24-0.36) K/mm3 Eos # (Auto) 0.00 L (0.04-0.36) K/mm3 Baso # (Auto) 0.01 (0.01-0.08) K/mm3 Manual Slide Review Normal smear Sodium 139 (136-145) mEq/L Potassium 4.3 (3.5-5.1) mEq/L Chloride 105 (98-107) mEq/L Carbon Dioxide 27 (21-32) mEq/L Anion Gap 11.3 (5-15) BUN 23 H (7-18) mg/dL Creatinine 1.0 (0.55-1.02) mg/dL Est Cr Clr Drug Dosing 43.63 mL/min Estimated GFR (MDRD) 53 (>60) mL/min BUN/Creatinine Ratio 23.0 H (14-18) Glucose 90 (70-99) mg/dL Calcium 8.5 (8.5-10.1) mg/dL Magnesium 1.8 (1.8-2.4) mg/dL Total Bilirubin 0.2 (0.2-1.0) mg/dL AST 35 (15-37) U/L ALT 34 (14-59) U/L Alkaline Phosphatase 65 (46-116) U/L Total Protein 5.8 L (6.4-8.2) g/dl Albumin 3.1 L (3.4-5.0) g/dl Globulin 2.7 gm/dL Albumin/Globulin Ratio 1.2 (1-2) Result Diagrams: 04/11/21 06:27 04/11/21 06:27 Sepsis Event Note - Evaluation Sepsis Screening Result: No Definite Risk - Focused Exam Vital Signs: Vital Signs Temp Pulse Resp BP Pulse Ox Pulse Ox 04/11/21 08:19 91 L 04/11/21 08:03 97.9 F 74 18 106/69 92 L 04/11/21 00:31 97.5 F 58 L 14 136/70 92 L - Problem List & Annotations (1) Bradycardia SNOMED Code(s): 62721108 Code(s): R00.1 - BRADYCARDIA, UNSPECIFIED Status: Acute Priority: Medium Current Visit: Yes (2) COVID-19 SNOMED Code(s): 713922723 Code(s): U07.1 - COVID-19 Status: Acute Priority: High Current Visit: Yes (3) DVT (deep venous thrombosis) SNOMED Code(s): 900572236 Code(s): I82.409 - ACUTE EMBOLISM AND THOMBOS UNSP DEEP VN UNSP LOWER EXTREMITY Status: Acute Priority: High Current Visit: Yes Qualifiers: DVT location: lower extremity Affected thrombotic vein of extremity: unspecified vein of extremity Chronicity: acute Laterality: unspecified laterality Qualified Code(s): I82.409 - Acute embolism and thrombosis of unspecified deep veins of unspecified lower extremity (4) Elevated d-dimer SNOMED Code(s): 080554373 Code(s): R79.89 - OTHER SPECIFIED ABNORMAL FINDINGS OF BLOOD CHEMISTRY Status: Acute Priority: High Current Visit: Yes (5) Hypomagnesemia SNOMED Code(s): 832435677 Code(s): E83.42 - HYPOMAGNESEMIA Status: Acute Priority: High Current Visit: Yes (6) Lung mass SNOMED Code(s): 293692911 Code(s): R91.8 - OTHER NONSPECIFIC ABNORMAL FINDING OF LUNG FIELD Status: Acute Priority: High Current Visit: Yes (7) Mediastinal adenopathy SNOMED Code(s): 94378310 Code(s): R59.0 - LOCALIZED ENLARGED LYMPH NODES Status: Acute Priority: Medium Current Visit: Yes (8) Pancreatitis SNOMED Code(s): 57215824 Code(s): K85.90 - ACUTE PANCREATITIS WITHOUT NECROSIS OR INFECTION, UNSP S tatus: Acute Priority: High Current Visit: Yes Qualifiers: Chronicity: acute Pancreatitis type: unspecified pancreatitis type Acute pancreatitis complication: unspecified Qualified Code(s): K85.90 - Acute pancreatitis without necrosis or infection, unspecified (9) History of lung cancer SNOMED Code(s): 980225012, 470565545 Code(s): Z85.118 - PERSONAL HISTORY OF MALIGNANT NEOPLASM OF BRONCHUS AND LUNG Status: Chronic Priority: Medium Current Visit: Yes (10) Chronic back pain SNOMED Code(s): 992605225 Code(s): M54.9 - DORSALGIA, UNSPECIFIED; G89.29 - OTHER CHRONIC PAIN Status: Chronic Priority: Medium Current Visit: No Qualifiers: Back pain location: back pain in unspecified location Back pain laterality: unspecified Qualified Code(s): M54.9 - Dorsalgia, unspecified; G89.29 - Other chronic pain (11) Paulina filter in place SNOMED Code(s): 149133112084362 Code(s): Z95.828 - PRESENCE OF OTHER VASCULAR IMPLANTS AND GRAFTS Status: Chronic Priority: Medium Current Visit: No (12) HTN (hypertension) SNOMED Code(s): 87306457 Code(s): I10 - ESSENTIAL (PRIMARY) HYPERTENSION Status: Chronic Priority: Medium Current Visit: No Qualifiers: Hypertension type: unspecified Qualified Code(s): I10 - Essential (primary) hypertension (13) History of RI (myocardial infarction) SNOMED Code(s): 387863659 Code(s): I25.2 - OLD MYOCARDIAL INFARCTION Status: Chronic Priority: Low Current Visit: No (14) History of pulmonary embolism SNOMED Code(s): 123533431 Code(s): Z86.711 - PERSONAL HISTORY OF PULMONARY EMBOLISM Status: Chronic Priority: Low Current Visit: No (15) Hx of heart artery stent SNOMED Code(s): 502378244, 053270091 Code(s): Z95.5 - PRESENCE OF CORONARY ANGIOPLASTY IMPLANT AND GRAFT Status: Chronic Priority: Low Current Visit: No (16) PUD (peptic ulcer disease) SNOMED Code(s): 60104154 Code(s): K27.9 - PEPTIC ULC, SITE UNSP, UNSP AC OR CHR, W/O HEMOR OR PERF Status: Chronic Priority: Low Current Visit: No - Problem List Review Problem List Initiated/Reviewed/Updated: Yes - Assessment Assessment:: Assessment - day of admission 04/08/2021 * 80-year-old female who presents to ED via [facility] with concern over chest pain * History of hypertension, RI with stents in 2005, PUD, lung carcinoid with tumor removed in 1993, and PE * Pain started around 1 AM this morning in her right shoulder blade and then moved to her left shoulder * Noted substernal chest discomfort but no radiation. Denies any diaphoresis or nausea. * Pain lasted approximately 45 minutes and then resolved on its own * Former smoker who quit approximately 20 years ago * On arrival to the ED is denying any current chest pain but states she has chronic back pain * Did take a single baby aspirin at the onset of symptoms around 1 AM. * 12-lead EKG is obtained showing a sinus rhythm at [address] depression in the lateral precordial leads. There is no significant change from prior EKG. * 12-lead EKG was repeated several hours later and shows a sinus rhythm with no change from prior EKG. * Labs are obtained: * WBC of 4.29. * Hemoglobin 13.9. * Platelet 140,000. * Neutrophils are 66.7%. * INR is 1.06. * Sodium 139. * Potassium 4.1. * Chloride 103. * Carbon dioxide 24. * Anion gap 16.1. * BUN is 18. Creatinine 1.1. GFR is 48. * Glucose 96. * Calcium 8.8. * Total bilirubin 0.3. * AST is 34, ALT 27, alkaline phosphatase 85. * Troponin less than 0.017 x2. * Protein 6.6. * Albumin 3.5. * Lipase 683. * SARS-CoV-2 RNA screen is positive. * She is given a baby aspirin and fentanyl for pain. 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 There is evidence of a prior left thoracotomy. 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 * CT scan of the abdomen and pelvis with contrast is obtained showing: * Gastric mucosal thickening which may represent gastritis. Differential includes viral gastritis and peptic ulcer disease. * There is no other acute changes noted in the abdomen or pelvis. * CT angiogram from 5-23-18 is reviewed and no nodule noted on this exam * Subsequently admitted observation on telemetry to the ICU as a [facility] overflow for management of her pancreatitis. 04/09/2021 This is an 80-year-old female who was admitted to the ICU as MedSurg overflow with pancreatitis and COVID-19. Yesterday evening patient's oxygen needs increased and she was on 4 L throughout the night. She was therefore started on remdesivir and dexamethasone. She has been weaned down to 2 L today. She states she feels pretty good with improved weakness. She did get some sleep. Her lipase has come down so we will start her on a clear liquid diet and discontinue IV fluids. WBC today is 3.45. Hemoglobin 13.6. Platelet 146,000. Neutrophils 73.7. D-dimer was checked and was elevated at 2.62. Patient is on baby aspirin and prophylaxis Lovenox at this time. Sodium is 141. Potassium 4.6. Chloride 107. Carbon dioxide 25. Anion gap is 13.6. BUN is 17. Creatinine 1.0. GFR is improved to 53. Glucose is 161. Calcium 8.6. Magnesium is 1.6 and will be supplemented. Total bilirubin 0.2. AST is 32, ALT 26, alkaline phosphatase 74. Albumin is 3.0. Patient remains on telemetry and has been noted to be bradycardic. She did drop into the low 40s after receiving her metoprolol. She has been in the upper 50s since then. Discussed with Dr. Julien and we will decrease dosing to 25 mg twice daily for now and monitor. She may require discontinuation of her beta-junior. Otherwise patient states she feels better. Length of stay will depend on improvement of symptoms. Otherwise if patient continues to require oxygen she will remain hospitalized through duration of COVID-19 treatment. 04/10/2021 80-year-old female admitted to the ICU as MedSurg overflow due to pancreatitis and COVID-19. Patient has successfully been weaned down to 1 L of oxygen. She is starting to complain of a cough and she states like she feels some mucus but cannot quite get it up. Today is day 3 of remdesivir and dexamethasone. She states she feels better. She has been tolerating a clear liquid diet so we will advance her to a soft diet. If this goes well we will advance her to a regular diet this evening. Metoprolol was decreased from 50 mg twice daily to 25 mg twice daily and patient continues to have heart rate in the low to mid 50s. We will therefore stop her home metoprolol and continue to monitor telemetry. Venous Doppler study did return positive for a small amount of clot within the left peroneal vein. She was therefore started on 10 mg twice daily Eliquis for 7 days. She should then decrease her dosing to 5 mg twice daily. Labs today show WBC of 4.78. Hemoglobin 13.7. Platelet 147,000. Neutrophils 63.9%. Sodium is 140. Potassium 4.2. Chloride 106. Carbon oxide 25. Anion gap 13.2. BUN is 18. Creatinine 0.9. GFR greater than 60. Glucose was 99. Calcium 8. 3. Magnesium 1.9. Total bilirubin 0.2. AST is 33, ALT 22, alkaline phosphatase 67. Protein is 5.8. Albumin 2.9. Patient will remain hospitalized for duration of COVID-19 treatment. We will continue to attempt to wean off oxygen as patient tolerates. 04/11/2021 Pleasant 80-year-old female admitted with a diagnosis of pancreatitis and subsequently found to have COVID-19. She is currently on 1 L of oxygen per nasal cannula. She is denying any complaints of shortness of breath. She does have a persistent nonproductive cough that she feels that sputum is getting caught in the back of her throat. Day 4 of remdesivir and dexamethasone treatment. She was advanced to a regular diet and has been tolerating that fairly well however she states that her appetite has not fully returned. Heart rate has ranged from 58-72 despite a decrease in her metoprolol dosage and subsequent discontinuance of metoprolol. Currently taking Eliquis. She understands that this will be a medication she will need to take for quite some time and her primary care provider will manage this upon discharge. Labs today: Hematology reveals a WBC of 4.40, hemoglobin 13.8, hematocrit 42.1, platelet count 138,000, chemistry reveals a sodium of 139, potassium 4.3, chloride 105, anion gap 11.3, BUN 23, creatinine 1.0, GFR 53, glucose 90, magnesium 1.8. Potentially discharge to home tomorrow as this will be her last day of remdesivir treatment. Hopeful to have her weaned off of oxygen and have her on room air. - Plan Plan:: Pancreatitis * Has been advanced to a regular diet and is tolerating well * Monitor labs * Triglycerides WNL * No signs of duct dilation or cholelithiasis on CT scan * Last [facility] consultation COVID-19 * Oxygen as needed to keep saturations 88-95%-currently down to 1 liter per nasal cannula * Remdesivir day 4/ * Dexamethasone day 12/10 * Airborne/contact isolation * PRN albuterol MDI * IS/Acapella * RT consultation Lung mass Mediastinal adenopathy History of lung cancer * Check serum serotonin * Discussed obtaining 5-HIAA however this will be deferred to outpatient due to diet restrictions associated with the test * Follow-up with oncology * Follow-up with PCP Hypomagnesemia,resolved * Supplement PRN * Monitor labs PUD (peptic ulcer disease) * Continue home famotidine daily due to creatinine clearance * No acute concerns HTN (hypertension) * Continue home medications * PRN Hydralazine Chronic back pain * PRN pain medications * PT/OT History of RI (myocardial infarction) Hx of heart artery stent * No acute concerns * Troponin negative x2 * Telemetry History of pulmonary embolism DVT Elevated D-Dimer Paulina filter in place * Start Eliquis daily for DVT treatment/COVID-19 - 10mg BID x7 days and then 5mg BID thereafter * PCP follow-up Code status: CPR only PCP: Ching Moraes NP DVT prophylaxis: Lovenox Disposition: Patient admitted ICU as MedSurg overflow observation status with telemetry for management of pancreatitis and further work-up/monitoring for COV ID-19 and lung mass. Length of stay likely 4-5 days.
[2021-04-11] MEDS: Acetaminophen 325 MG Tab PO PRN (11:32)
[2021-04-11] MEDS: REMDESIVIR 100 MG in Sodium Chloride 0.9% 100 ML IV SCH (16:35)
--- NOTE | 2021-04-12 08:01 | PCM.PN ---
- General Info Date of Service: 04/12/21 Admission Dx/Problem (Free Text): Pancreatitis Functional Status: Reports: Pain Controlled, Tolerating Diet, Ambulating, Urinating, Incentive Spirometry, Other (Acapella ). Denies: New Symptoms - Review of Systems General: Reports: No Symptoms. Denies: Fever, Weakness, Fatigue, Malaise, Chills HEENT: Reports: No Symptoms. Denies: Headaches, Sore Throat Pulmonary: Reports: No Symptoms. Denies: Shortness of Breath, Pleuritic Chest Pain, Cough, Sputum Cardiovascular: Reports: No Symptoms Gastrointestinal: Reports: No Symptoms. Denies: Abdominal Pain, Constipation, Diarrhea, Nausea, Vomiting Genitourinary: Reports: No Symptoms. Denies: Pain Musculoskeletal: Reports: Back Pain (chronic ) Skin: Reports: No Symptoms. Denies: Cyanosis Neurological: Reports: No Symptoms. Denies: Confusion, Dizziness, Headache, Numbness, Pre-Existing Deficit, Syncope, Tingling, Difficulty Walking, Weakness, Gait Disturbance Psychiatric: Reports: No Symptoms - Patient Data Vitals - Most Recent: Last Vital Signs Temp 97.7 F 04/12/21 03:00 Pulse 62 04/12/21 03:00 Resp 20 04/12/21 03:00 BP 142/69 H 04/12/21 03:00 Pulse Ox 94 L 04/12/21 03:00 Weight - Most Recent: 193 lb 1.6 oz I&O - Last 24 Hours: Intake & Output 04/11/21 04/12/21 04/12/21 22:59 06:59 14:59 Intake Total 900 250 Output Total 500 600 Balance 400 -350 Lab Results Last 24 Hours: Laboratory Results - last 24 hr 04/12/21 04/12/21 Range/Units 05:45 05:45 WBC 3.43 L (3.98-10.04) K/mm3 RBC 4.84 (3.98-5.22) M/mm3 Hgb 14.0 (11.2-15.7) gm/dl Hct 43.6 (34.1-44.9) % MCV 90.1 (79.4-94.8) fl MCH 28.9 (25.6-32.2) pg MCHC 32.1 L (32.2-35.5) g/dl RDW Std Deviation 44.6 (36.4-46.3) fL Plt Count 150 L (182-369) K/mm3 MPV 10.7 (9.4-12.3) fl Neut % (Auto) 57.2 (34.0-71.1) % Lymph % (Auto) 25.9 (19.3-51.7) % [place] % (Auto) 15.7 H (4.7-12.5) % Eos % (Auto) 0 L (0.7-5.8) Baso % (Auto) 0.3 (0.1-1.2) % Neut # (Auto) 1.96 (1.56-6.13) K/mm3 Lymph # (Auto) 0.89 L (1.18-3.74) K/mm3 [place] # (Auto) 0.54 H (0.24-0.36) K/mm3 Eos # (Auto) 0.00 L (0.04-0.36) K/mm3 Baso # (Auto) 0.01 (0.01-0.08) K/mm3 Manual Slide Review Normal smear Sodium 139 (136-145) mEq/L Potassium 4.0 (3.5-5.1) mEq/L Chloride 104 (98-107) mEq/L Carbon Dioxide 26 (21-32) mEq/L Anion Gap 13.0 (5-15) BUN 25 H (7-18) mg/dL Creatinine 0.9 (0.55-1.02) mg/dL Est Cr Clr Drug Dosing 48.48 mL/min Estimated GFR (MDRD) > 60 (>60) mL/min BUN/Creatinine Ratio 27.8 H (14-18) Glucose 98 (70-99) mg/dL Calcium 8.5 (8.5-10.1) mg/dL Magnesium 1.7 L (1.8-2.4) mg/dL Total Bilirubin 0.4 (0.2-1.0) mg/dL AST 33 (15-37) U/L ALT 35 (14-59) U/L Alkaline Phosphatase 68 (46-116) U/L Total Protein 6.1 L (6.4-8.2) g/dl Albumin 3.1 L (3.4-5.0) g/dl Globulin 3.0 gm/dL Albumin/Globulin Ratio 1.0 (1-2) Med Orders - Current: Current Medications Acetaminophen (Acetaminophen 325 Mg Tab) 650 mg PO Q4H PRN PRN Reason: Pain (Mild 1-3)/fever Last Admin: 04/11/21 11:32 Dose: 650 mg Documented by: Albuterol (Albuterol 6.7 Gm Inhaler) 0 gm INH Q2H PRN PRN Reason: SOB/Wheezing Apixaban (Apixaban 5 Mg Tab) 10 mg PO BID [facility] Stop: 04/16/21 09:01 Last Admin: 04/11/21 21:34 Dose: 10 mg Documented by: Apixaban (Apixaban 5 Mg Tab) 5 mg PO BID [facility] Dexamethasone (Dexamethasone 4 Mg Tab) 6 mg PO DAILY [facility] Stop: 04/17/21 09:01 Last Admin: 04/11/21 09:44 Dose: 6 mg Documented by: Famotidine (Famotidine 20 Mg Tab) 20 mg PO DAILY [facility] Last Admin: 04/11/21 09:44 Dose: 20 mg Documented by: Hydralazine HCl (Hydralazine 20 Mg/Ml Sdv) 10 mg IVPUSH Q6H PRN PRN Reason: Hypertension Last Admin: 04/09/21 20:16 Dose: 10 mg Documented by: Hydromorphone HCl (Hydromorphone 0.5 Mg/0.5 Ml Syringe) 0.5 mg IVPUSH Q2H PRN PRN Reason: Pain (severe 7-10) Last Admin: 04/08/21 16:10 Dose: 0.5 mg Documented by: Remdesivir 100 mg/ Sodium (Chloride) 100 mls @ 100 mls/hr IV Q24H [facility] Stop: 04/12/21 17:59 Last Admin: 04/11/21 16:35 Dose: 100 mls/hr Documented by: Ondansetron HCl (Ondansetron 4 Mg/2 Ml Sdv) 4 mg IV Q6H PRN PRN Reason: Nausea/Vomiting Last Admin: 04/08/21 17:47 Dose: 4 mg Documented by: Ondansetron HCl (Ondansetron 4 Mg Tab.Dis) 4 mg PO Q6H PRN PRN Reason: Nausea/Vomiting Oxycodone HCl (Oxycodone 5 Mg Tab) 5 mg PO Q4H PRN PRN Reason: Pain (moderate 4-6) Last Admin: 04/10/21 12:08 Dose: 5 mg Documented by: Sertraline HCl (Sertraline 25 Mg Tab) 25 mg PO ASDIRECTED PRN PRN Reason: Anxiety Last Admin: 04/09/21 23:01 Dose: 25 mg Documented by: Discontinued Medications Apixaban (Apixaban 5 Mg Tab) 5 mg PO BID [facility] Aspirin (Aspirin 81 Mg Tab.Chew) 324 mg PO ONETIME ONE Stop: 04/08/21 08:10 Last Admin: 04/08/21 09:30 Dose: 324 mg Documented by: Aspirin (Aspirin 81 Mg Tab.Ec) 81 mg PO DAILY [facility] Last Admin: 04/09/21 08:49 Dose: 81 mg Documented by: Enoxaparin Sodium (Enoxaparin 40 Mg/0.4 Ml Syringe) 40 mg SUBCUT DAILY [facility] Last Admin: 04/09/21 08:50 Dose: 40 mg Documented by: Fentanyl (Fentanyl 100 Mcg/2 Ml Sdv) 25 mcg IVPUSH ONETIME ONE Stop: 04/08/21 09:53 Last Admin: 04/08/21 09:57 Dose: 25 mcg Documented by: Fentanyl (Fentanyl 100 Mcg/2 Ml Sdv) 25 mcg IVPUSH ONETIME ONE Stop: 04/08/21 10:49 Last Admin: 04/08/21 10:58 Dose: 25 mcg Documented by: Sodium Chloride (Normal Saline) 100 mls @ 75 mls/hr IV ASDIRECTED [facility] Dextrose/Lactated Ringer's (Dextrose 5%-Lactated Ringers) 1,000 mls @ 100 mls/hr IV ASDIRECTED [facility] Last Admin: 04/09/21 00:18 Dose: 100 mls/hr Documented by: Remdesivir 200 mg/ Sodium (Chloride) 250 mls @ 250 mls/hr IV Q24H [facility] Stop: 04/08/21 17:29 Last Admin: 04/08/21 16:39 Dose: 250 mls/hr Documented by: Magnesium Sulfate 2 gm/ Premix 50 mls @ 25 mls/hr IV ONETIME ONE Stop: 04/09/21 11:52 Last Admin: 04/09/21 10:25 Dose: 25 mls/hr Documented by: Iopamidol (Iopamidol 755 Mg/Ml 100 Ml Bottle) 100 ml IVPUSH ONETIME ONE Stop: 04/08/21 09:56 Last Admin: 04/08/21 10:17 Dose: 100 ml Documented by: Iopamidol (Iopamidol 755 Mg/Ml 50 Ml Bottle) 25 ml IVPUSH ONETIME ONE Stop: 04/08/21 09:59 Last Admin: 04/08/21 10:17 Dose: 25 ml Documented by: Metoprolol Tartrate (Metoprolol Tartrate 50 Mg Tab) 50 mg PO BID [facility] Last Admin: 04/09/21 08:50 Dose: 50 mg Documented by: Metoprolol Tartrate (Metoprolol Tartrate 25 Mg Tab) 25 mg PO Q12H [facility] Last Admin: 04/10/21 08:24 Dose: Not Given Documented by: - Exam Quality Assessment: DVT Prophylaxis. No: Supplemental Oxygen, Urine Catheter General: Alert, Oriented, Cooperative, No Acute Distress HEENT: Pupils Equal, Pupils Reactive, Mucous Membr. Moist/[place] Neck: Supple, Trachea Midline Lungs: Normal Respiratory Effort, Crackles (very mild in bases ) Cardiovascular: Regular Rate, Regular Rhythm GI/Abdominal Exam: Normal Bowel Sounds, Soft, Non-Tender, No Distention (Female) Exam: Deferred Back Exam: Normal Inspection, Full Range of Motion Extremities: Normal Inspection, Normal Range of Motion, Non-Tender, No Pedal Edema, Normal Capillary Refill Peripheral Pulses: 2+: Radial (L), Radial (R), Dorsalis Pedis (L), Dorsalis Pedis (R) Skin: Warm, Dry, Intact Neurological: No New Focal Deficit Psy/Mental Status: Alert, Normal Affect, Normal Mood - Patient Data Lab Results Last 24 hrs: Laboratory Results - last 24 hr 04/12/21 04/12/21 Range/Units 05:45 05:45 WBC 3.43 L (3.98-10.04) K/mm3 RBC 4.84 (3.98-5.22) M/mm3 Hgb 14.0 (11.2-15.7) gm/dl Hct 43.6 (34.1-44.9) % MCV 90.1 (79.4-94.8) fl MCH 28.9 (25.6-32.2) pg MCHC 32.1 L (32.2-35.5) g/dl RDW Std Deviation 44.6 (36.4-46.3) fL Plt Count 150 L (182-369) K/mm3 MPV 10.7 (9.4-12.3) fl Neut % (Auto) 57.2 (34.0-71.1) % Lymph % (Auto) 25.9 (19.3-51.7) % [place] % (Auto) 15.7 H (4.7-12.5) % Eos % (Auto) 0 L (0.7-5.8) Baso % (Auto) 0.3 (0.1-1.2) % Neut # (Auto) 1.96 (1.56-6.13) K/mm3 Lymph # (Auto) 0.89 L (1.18-3.74) K/mm3 [place] # (Auto) 0.54 H (0.24-0.36) K/mm3 Eos # (Auto) 0.00 L (0.04-0.36) K/mm3 Baso # (Auto) 0.01 (0.01-0.08) K/mm3 Manual Slide Review Normal smear Sodium 139 (136-145) mEq/L Potassium 4.0 (3.5-5.1) mEq/L Chloride 104 (98-107) mEq/L Carbon Dioxide 26 (21-32) mEq/L Anion Gap 13.0 (5-15) BUN 25 H (7-18) mg/dL Creatinine 0.9 (0.55-1.02) mg/dL Est Cr Clr Drug Dosing 48.48 mL/min Estimated GFR (MDRD) > 60 (>60) mL/min BUN/Creatinine Ratio 27.8 H (14-18) Glucose 98 (70-99) mg/dL Calcium 8.5 (8.5-10.1) mg/dL Magnesium 1.7 L (1.8-2.4) mg/dL Total Bilirubin 0.4 (0.2-1.0) mg/dL AST 33 (15-37) U/L ALT 35 (14-59) U/L Alkaline Phosphatase 68 (46-116) U/L Total Protein 6.1 L (6.4-8.2) g/dl Albumin 3.1 L (3.4-5.0) g/dl Globulin 3.0 gm/dL Albumin/Globulin Ratio 1.0 (1-2) Result Diagrams: 04/12/21 05:45 04/12/21 05:45 Sepsis Event Note - Evaluation Sepsis Screening Result: No Definite Risk - Focused Exam Vital Signs: Vital Signs Temp Temp Pulse Pulse Resp BP BP 04/12/21 03:00 97.7 F 62 20 142/69 H 04/11/21 22:35 97.7 F 61 20 136/91 H 04/11/21 21:41 97.7 F 61 20 143/78 H Pulse Ox 04/12/21 03:00 94 L 04/11/21 22:35 93 L 04/11/21 21:41 94 L - Problem List & Annotations (1) History of pulmonary embolism SNOMED Code(s): 946337430 Code(s): Z86.711 - PERSONAL HISTORY OF PULMONARY EMBOLISM Status: Chronic Priority: Low Current Visit: No (2) PUD (peptic ulcer disease) SNOMED Code(s): 55719220 Code(s): K27.9 - PEPTIC ULC, SITE UNSP, UNSP AC OR CHR, W/O HEMOR OR PERF Status: Chronic Priority: Low Current Visit: No (3) Mediastinal adenopathy SNOMED Code(s): 36621863 Code(s): R59.0 - LOCALIZED ENLARGED LYMPH NODES Status: Acute Priority: Medium Current Visit: Yes (4) HTN (hypertension) SNOMED Code(s): 53860142 Code(s): I10 - ESSENTIAL (PRIMARY) HYPERTENSION Status: Chronic Priority: Medium Current Visit: No Qualifiers: Hypertension type: unspecified Qualified Code(s): I10 - Essential (primary) hypertension (5) COVID-19 SNOMED Code(s): 851321200 Code(s): U07.1 - COVID-19 Status: Acute Priority: High Current Visit: Yes (6) Lung mass SNOMED Code(s): 381770433 Code(s): R91.8 - OTHER NONSPECIFIC ABNORMAL FINDING OF LUNG FIELD Status: Acute Priority: High Current Visit: Yes (7) Pancreatitis SNOMED Code(s): 05685651 Code(s): K85.90 - ACUTE PANCREATITIS WITHOUT NECROSIS OR INFECTION, UNSP Status: Resolved Priority: High Current Visit: Yes Qualifiers: Chronicity: acute Pancreatitis type: unspecified pancreatitis type Acute pancreatitis complication: unspecified Qualified Code(s): K85.90 - Acute pancreatitis without necrosis or infection, unspecified (8) History of [place] (myocardial infarction) SNOMED Code(s): 901584173 Code(s): I25.2 - OLD MYOCARDIAL INFARCTION Status: Chronic Priority: Low Current Visit: No (9) Hx of heart artery stent SNOMED Code(s): 810233932, 560403275 Code(s): Z95.5 - PRESENCE OF CORONARY ANGIOPLASTY IMPLANT AND GRAFT Status: Chronic Priority: Low Current Visit: No (10) History of lung cancer SNOMED Code(s): 209152400, 839891154 Code(s): Z85.118 - PERSONAL HISTORY OF MALIGNANT NEOPLASM OF BRONCHUS AND LUNG Status: Chronic Priority: Medium Current Visit: Yes (11) Chronic back pain SNOMED Code(s): 410073955 Code(s): M54.9 - DORSALGIA, UNSPECIFIED; G89.29 - OTHER CHRONIC PAIN S tatus: Chronic Priority: Medium Current Visit: No Qualifiers: Back pain location: back pain in unspecified location Back pain laterality: unspecified Qualified Code(s): M54.9 - Dorsalgia, unspecified; G89.29 - Other chronic pain (12) Hypomagnesemia SNOMED Code(s): 389301031 Code(s): E83.42 - HYPOMAGNESEMIA Status: Acute Priority: High Current Visit: Yes (13) Elevated d-dimer SNOMED Code(s): 918709022 Code(s): R79.89 - OTHER SPECIFIED ABNORMAL FINDINGS OF BLOOD CHEMISTRY Status: Acute Priority: High Current Visit: Yes (14) DVT (deep venous thrombosis) SNOMED Code(s): 543050231 Code(s): I82.409 - ACUTE EMBOLISM AND THOMBOS UNSP DEEP VN UNSP LOWER EXTREMITY Status: Acute Priority: High Current Visit: Yes Qualifiers: DVT location: lower extremity Affected thrombotic vein of extremity: unspecified vein of extremity Chronicity: acute Laterality: unspecified laterality Qualified Code(s): I82.409 - Acute embolism and thrombosis of unspecified deep veins of unspecified lower extremity (15) Bradycardia SNOMED Code(s): 83339266 Code(s): R00.1 - BRADYCARDIA, UNSPECIFIED Status: Acute Priority: Medium Current Visit: Yes (16) [place] filter in place SNOMED Code(s): 793576363006129 Code(s): Z95.828 - PRESENCE OF OTHER VASCULAR IMPLANTS AND GRAFTS Status: Chronic Priority: Medium Current Visit: No - Problem List Review Problem List Initiated/Reviewed/Updated: Yes - My Orders Last 24 Hours: My Active Orders 04/11/21 Lunch Regular Diet [DIET] 04/12/21 08:00 EKG 12 Lead [EKG Documentation Completion] [RC] ROUTINE - Assessment Assessment:: Assessment - day of admission 04/08/2021 * 80-year-old female who presents to ED via [facility] with concern over chest pain * History of hypertension, [place] with stents in 2005, PUD, lung carcinoid with tumor removed in 1993, and PE * Pain started around 1 AM this morning in her right shoulder blade and then moved to her left shoulder * Noted substernal chest discomfort but no radiation. Denies any diaphoresis or nausea. * Pain lasted approximately 45 minutes and then resolved on its own * Former smoker who quit approximately 20 years ago * On arrival to the ED is denying any current chest pain but states she has chronic back pain * Did take a single baby aspirin at the onset of symptoms around 1 AM. * 12-lead EKG is obtained showing a sinus rhythm at [address] depression in the lateral precordial leads. There is no significant change from prior EKG. * 12-lead EKG was repeated several hours later and shows a sinus rhythm with no change from prior EKG. * Labs are obtained: * WBC of 4.29. * Hemoglobin 13.9. * Platelet 140,000. * Neutrophils are 66.7%. * INR is 1.06. * Sodium 139. * Potassium 4.1. * Chloride 103. * Carbon dioxide 24. * Anion gap 16.1. * BUN is 18. Creatinine 1.1. GFR is 48. * Glucose 96. * Calcium 8.8. * Total bilirubin 0.3. * AST is 34, ALT 27, alkaline phosphatase 85. * Troponin less than 0.017 x2. * Protein 6.6. * Albumin 3.5. * Lipase 683. * SARS-CoV-2 RNA screen is positive. * She is given a baby aspirin and fentanyl for pain. 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 There is evidence of a prior left thoracotomy. 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 * CT scan of the abdomen and pelvis with contrast is obtained showing: * Gastric mucosal thickening which may represent gastritis. Differential includes viral gastritis and peptic ulcer disease. * There is no other acute changes noted in the abdomen or pelvis. * CT angiogram from 01-22-18 is reviewed and no nodule noted on this exam * Subsequently admitted observation on telemetry to the ICU as a MSP overflow for management of her pancreatitis. 04/09/2021 This is an 80-year-old female who was admitted to the ICU as MedSurg overflow with pancreatitis and COVID-19. Yesterday evening patient's oxygen needs increased and she was on 4 L throughout the night. She was therefore started on remdesivir and dexamethasone. She has been weaned down to 2 L today. She states she feels pretty good with improved weakness. She did get some sleep. Her lipase has come down so we will start her on a clear liquid diet and discontinue IV fluids. WBC today is 3.45. Hemoglobin 13.6. Platelet 146,000. Neutrophils 73.7. D-dimer was checked and was elevated at 2.62. Patient is on baby aspirin and prophylaxis Lovenox at this time. Sodium is 141. Potassium 4.6. Chloride 107. Carbon dioxide 25. Anion gap is 13.6. BUN is 17. Creatinine 1.0. GFR is improved to 53. Glucose is 161. Calcium 8.6. Magnesium is 1.6 and will be supplemented. Total bilirubin 0.2. AST is 32, ALT 26, alkaline phosphatase 74. Albumin is 3.0. Patient remains on telemetry and has been noted to be bradycardic. She did drop into the low 40s after receiving her metoprolol. She has been in the upper 50s since then. Discussed with Dr. Julien and we will decrease dosing to 25 mg twice daily for now and monitor. She may require discontinuation of her beta-junior. Otherwise patient states she feels better. Length of stay will depend on improvement of symptoms. Otherwise if patient continues to require oxygen she will remain hospitalized through duration of COVID-19 treatment. 04/10/2021 80-year-old female admitted to the ICU as MedSurg overflow due to pancreatitis and COVID-19. Patient has successfully been weaned down to 1 L of oxygen. She is starting to complain of a cough and she states like she feels some mucus but cannot quite get it up. Today is day 3 of remdesivir and dexamethasone. She states she feels better. She has been tolerating a clear liquid diet so we will advance her to a soft diet. If this goes well we will advance her to a regular diet this evening. Metoprolol was decreased from 50 mg twice daily to 25 mg twice daily and patient continues to have heart rate in the low to mid 50s. We will therefore stop her home metoprolol and continue to monitor telemetry. Venous Doppler study did return positive for a small amount of clot within the left peroneal vein. She was therefore started on 10 mg twice daily Eliquis for 7 days. She should then decrease her dosing to 5 mg twice daily. Labs today show WBC of 4.78. Hemoglobin 13.7. Platelet 147,000. Neutrophils 63.9%. Sodium is 140. Potassium 4.2. Chloride 106. Carbon oxide 25. Anion gap 13.2. BUN is 18. Creatinine 0.9. GFR greater than 60. Glucose was 99. Calcium 8.3. Magnesium 1.9. Total bilirubin 0.2. AST is 33, ALT 22, alkaline phosphatase 67. Protein is 5.8. Albumin 2.9. Patient will remain hospitalized for duration of COVID-19 treatment. We will continue to attempt to wean off oxygen as patient tolerates. 04/11/2021 Pleasant 80-year-old female admitted with a diagnosis of pancreatitis and subsequently found to have COVID-19. She is currently on 1 L of oxygen per nasal cannula. She is denying any complaints of shortness of breath. She does have a persistent nonproductive cough that she feels that sputum is getting caught in the back of her throat. Day 4 of remdesivir and dexamethasone treatment. She was advanced to a regular diet and has been tolerating that fairly well however she states that her appetite has not fully returned. Heart rate has ranged from 58-72 despite a decrease in her metoprolol dosage and subs equent discontinuance of metoprolol. Currently taking Eliquis. She understands that this will be a medication she will need to take for quite some time and her primary care provider will manage this upon discharge. Labs today: Hematology reveals a WBC of 4.40, hemoglobin 13.8, hematocrit 42.1, platelet count 138,000, chemistry reveals a sodium of 139, potassium 4.3, chloride 105, anion gap 11.3, BUN 23, creatinine 1.0, GFR 53, glucose 90, magnesium 1.8. Potentially discharge to home tomorrow as this will be her last day of remdesivir treatment. Hopeful to have her weaned off of oxygen and have her on room air. 04/12/2021 8-year-old female admitted for pancreatitis and COVID-19. Today she is doing quite well. Has been weaned off of oxygen. She reports back pain but no other concerns. She reports her cough is essentially gone and she is not having any shortness of breath. No abdominal pain. Today is her fifth day of remdesivir and dexamethasone. Remdesivir will be discontinued after this. Heart rate reportedly dropped into the 30s over 90s. Twelve-lead EKG is been ordered. She remains off of metoprolol. She is on Eliquis. We discussed probable discharge tomorrow. Labs today show WBC of 3.43. Hemoglobin 14.0. Neutrophils are normal at 57.2. Sodium 139. Potassium 4.0. Chloride 104. Carbon dioxide 26. Anion gap is 13. BUN is 25. Creatinine 0.9. GFR greater than 60. Magnesium 1.7 and this will be supplemented. Bilirubin 0.4. AST is 33, ALT 35, alkaline phosphatase 68. Albumin is 3.1. Again, planning for discharge tomorrow pending continued stability. - Plan Plan:: Pancreatitis * Has been advanced to a regular diet and is tolerating well * Monitor labs * Triglycerides WNL * No signs of duct dilation or cholelithiasis on CT scan * Resident Assistant consultation COVID-19 * Oxygen as needed to keep saturations 88-95%-currently off oxygen * Remdesivir day 01/04 * Dexamethasone day 01/09 * Airborne/contact isolation * PRN albuterol MDI * IS/Acapella * RT consultation Lung mass Mediastinal adenopathy History of lung cancer * Check serum serotonin * Discussed obtaining 5-HIAA however this will be deferred to outpatient due to diet restrictions associated with the test * Follow-up with oncology * Follow-up with PCP Hypomagnesemia * Supplement * Monitor labs PUD (peptic ulcer disease) * Continue home famotidine daily due to creatinine clearance * No acute concerns HTN (hypertension) * Continue home medications * PRN Hydralazine Chronic back pain * PRN pain medications * PT/OT History of [place] (myocardial infarction) Hx of heart artery stent * No acute concerns * Troponin negative x2 * Telemetry History of pulmonary embolism DVT Elevated D-Dimer [place] filter in place * Start Eliquis daily for DVT treatment/COVID-19 - 10mg BID x7 days and then 5mg BID thereafter * PCP follow-up Code status: CPR only PCP: Ching Moraes NP DVT prophylaxis: Lovenox Disposition: Patient admitted ICU as MedSurg overflow observation status with telemetry for management of pancreatitis and further work-up/monitoring for COVID-19 and lung mass. Length of stay likely 4-5 days. LOS >96 Hrs due to COVID-19 Treatment. Likely discharge tomorrow.
[2021-04-12] MEDS: Apixaban 5 MG Tab PO SCH ×2 (09:44→20:36)
[2021-04-12] MEDS: Famotidine 20 MG Tab PO SCH (09:44)
[2021-04-12] MEDS: Dexamethasone 4 MG Tab PO SCH (09:45)
[2021-04-12] MEDS ORDERED: Magnesium Sulfate/Water 2 GM in Premix Bag 1 BAG IV ONE (09:54)
--- NOTE | 2021-04-12 14:07 | PCM.EKG ---
#1 Interpretation EKG Date: 04/12/21 Time: 08:12 Rhythm: Other (Sinus bradycardia) Rate (Beats/Min): 58 [place]: Normal P-Wave: Present QRS: Normal ST-T: Normal QT: Normal Comparison: No Change (Bradycardia otherwise no significant change from EKG obtained in ED on 04/08/2021) EKG Interpretation Comments: P wave inversion in V1 and V2. T wave inversion in V1 normal variant. Suspect left atrial enlargement. Borderline EKG.
[2021-04-12] MEDS: REMDESIVIR 100 MG in Sodium Chloride 0.9% 100 ML IV SCH (17:53)
[2021-04-12] MEDS: Acetaminophen 325 MG Tab PO PRN (23:20)
[2021-04-13 07:45] VITALS: BP 136/91; PULSE 71
[2021-04-13] MEDS: Apixaban 5 MG Tab PO SCH (08:19)
[2021-04-13] MEDS: Dexamethasone 4 MG Tab PO SCH (08:19)
[2021-04-13] MEDS: Famotidine 20 MG Tab PO SCH (08:21)
--- NOTE | 2021-04-13 08:27 | PCM.EKG ---
#1 Interpretation EKG Date: 04/12/21 Time: 22:01 Rhythm: NSR Rate (Beats/Min): 65 [place]: Normal P-Wave: Present QRS: Normal ST-T: Normal QT: Normal Comparison: No Change (No significant change. Slight change in V2 QRS morphology. Likely lead placement.) EKG Interpretation Comments: P wave inversion in V1. Early R wave transition. No ischemic changes.
--- NOTE | 2021-04-13 08:28 | PCM.DCSUM1 ---
<Ric Camp - Last Filed: 04/13/21 12:41> Discharge Summary - Hospital Course HPI Initial Comments: This is an 80-year-old female who presents to ED on 04-08-2021 via [facility] with concern over chest pain. She reports pain started around 1 AM this morning in her right shoulder blade and then moved to her left shoulder. She noted substernal chest discomfort but no radiation. Denies any diaphoresis or nausea. 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 Reports the pain lasted approximately 45 minutes and then resolved on its own. She is a former smoker who quit approximately 20 years ago. On arrival to the ED is denying any current chest pain but states she has chronic back pain. She did take a single baby aspirin at the onset of symptoms around 1 AM. In the ED twelve-lead EKG is obtained showing a sinus rhythm at [address] depression in the lateral precordial leads. There is no significant change from prior EKG. Twelve-lead EKG was repeated several hours later and shows a sinus rhythm with no change from prior EKG. Temp is 36.7 C. Pulse 72. Respirations 18. Blood pressure 98/76. Pulse ox 87% on room air. Labs are obtained showing a WBC of 4.29. Hemoglobin 13.9. Platelet 140,000. Neutrophils are 66.7%. INR is 1.06. Sodium 139. Potassium 4.1. Chloride 103. Carbon dioxide 24. Anion gap 16.1. BUN is 18. Creatinine 1.1. GFR is 48. Glucose 96. Calcium 8.8. Total bilirubin 0.3. AST is 34, ALT 27, alkaline phosphatase 85. Troponin less than 0.017x2. Protein 6.6. Albumin 3.5. Lipase 683. SARS-CoV-2 RNA screen is positive. She is given a baby aspirin and fentanyl for pain. 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 There is evidence of a prior left thoracotomy. This is probably recurrent neoplasm. There are also enlarged mediastinal lymph nodes and left hilar adenopathy consistent with metastatic disease and mild emphysema noted. CT scan of the abdomen and pelvis with contrast is obtained showing gastric mucosal thickening which may represent gastritis. Differential includes viral gastritis and peptic ulcer disease. There is no other acute changes noted in the abdomen or pelvis. CT angiogram from 01-22-18 is reviewed and confirms nodule in the left upper lobe is new onset, at least since the scan. She carries a history of hypertension, IL with stents in 2005, PUD, lung carcinoid with tumor removed in 1993, and PE. She is a CPR only patient. PCP is Ching Moraes NP. She is subsequently admitted observation on telemetry to the ICU as a MSP overflow for management of her pancreatitis. Diagnosis: Stroke: No - Discharge Data Discharge Date: 04/13/21 (Admit date: 04/08/2021) Discharge Disposition: Home, Self-Care 01 Condition: Good - Referral to Home Health Primary Care Physician: Ching Moraes NP - Discharge Diagnosis/Problem(s) (1) History of pulmonary embolism SNOMED Code(s): 446051742 ICD Code: Z86.711 - PERSONAL HISTORY OF PULMONARY EMBOLISM Status: Chronic Priority: Low (2) PUD (peptic ulcer disease) SNOMED Code(s): 22223374 ICD Code: K27.9 - PEPTIC ULC, SITE UNSP, UNSP AC OR CHR, W/O HEMOR OR PERF Status: Chronic Priority: Low (3) Mediastinal adenopathy SNOMED Code(s): 93560189 ICD Code: R59.0 - LOCALIZED ENLARGED LYMPH NODES Status: Acute Priority: Medium (4) HTN (hypertension) SNOMED Code(s): 34991911 ICD Code: I10 - ESSENTIAL (PRIMARY) HYPERTENSION Status: Chronic Priority: Medium Qualifiers: Hypertension type: unspecified Qualified Code(s): I10 - Essential (primary) hypertension (5) COVID-19 SNOMED Code(s): 671796745 ICD Code: U07.1 - COVID-19 Status: Acute Priority: High (6) Lung mass SNOMED Code(s): 161584842 ICD Code: R91.8 - OTHER NONSPECIFIC ABNORMAL FINDING OF LUNG FIELD Status: Acute Priority: High (7) Pancreatitis SNOMED Code(s): 44509697 ICD Code: K85.90 - ACUTE PANCREATITIS WITHOUT NECROSIS OR INFECTION, UNSP Status: Resolved Priority: High Qualifiers: Chronicity: acute Pancreatitis type: unspecified pancreatitis type Acute pancreatitis complication: unspecified Qualified Code(s): K85.90 - Acute pancreatitis without necrosis or infection, unspecified (8) History of IL (myocardial infarction) SNOMED Code(s): 917059255 ICD Code: I25.2 - OLD MYOCARDIAL INFARCTION Status: Chronic Priority: Low (9) Hx of heart artery stent SNOMED Code(s): 676313734, 724916365 ICD Code: Z95.5 - PRESENCE OF CORONARY ANGIOPLASTY IMPLANT AND GRAFT Status: Chronic Priority: Low (10) History of lung cancer SNOMED Code(s): 429534258, 680956117 ICD Code: Z85.118 - PERSONAL HISTORY OF MALIGNANT NEOPLASM OF BRONCHUS AND LUNG Status: Chronic Priority: Medium (11) Chronic back pain SNOMED Code(s): 424561515 ICD Code: M54.9 - DORSALGIA, UNSPECIFIED; G89.29 - OTHER CHRONIC PAIN Status: Chronic Priority: Medium Qualifiers: Back pain location: back pain in unspecified location Back pain laterality: unspecified Qualified Code(s): M54.9 - Dorsalgia, unspecified; G89.29 - Other chronic pain (12) Hypomagnesemia SNOMED Code(s): 339433100 ICD Code: E83.42 - HYPOMAGNESEMIA Status: Resolved Priority: High (13) Elevated d-dimer SNOMED Code(s): 827236558 ICD Code: R79.89 - OTHER SPECIFIED ABNORMAL FINDINGS OF BLOOD CHEMISTRY Status: Acute Priority: High (14) DVT (deep venous thrombosis) SNOMED Code(s): 779052398 ICD Code: I82.409 - ACUTE EMBOLISM AND THOMBOS UNSP DEEP VN UNSP LOWER EXTREMITY Status: Acute Priority: High Qualifiers: DVT location: lower extremity Affected thrombotic vein of extremity: unspecified vein of extremity Chronicity: acute Laterality: unspecified laterality Qualified Code(s): I82.409 - Acute embolism and thrombosis of unspecified deep veins of unspecified lower extremity (15) Bradycardia SNOMED Code(s): 57191821 ICD Code: R00.1 - BRADYCARDIA, UNSPECIFIED Status: Acute Priority: Medium (16) Paulina filter in place SNOMED Code(s): 547797023938305 ICD Code: Z95.828 - PRESENCE OF OTHER VASCULAR IMPLANTS AND GRAFTS Status: Chronic Priority: Medium - Patient Summary/Data Consults: Consultations 04/08/21 14:09 Consult to Case Management/Hedis Specialist [CONS] Routine 04/08/21 14:13 OT Evaluation and Treatment [CONS] Routine PT Evaluation and Treatment [CONS] Routine Respiratory Care Assess and Treatment [CONS] Routine 04/10/21 11:47 Consult to Fulfillment Coordinator [CONS] Routine Labs Pending at D/C: Serum serotonin Recommended Follow-up Testing/Procedures: Follow-up with primary care provider within 5 days of discharge, sooner if needed. * Recommend repeat CBC, CMP, and magnesium at that time. * Patient instructed to quarantine/isolate for 20 days after positive test which was on 04/08/2021 * Completed COVID-19 treatment. No further medications for this. * Noted to have lesion in right upper lung and mediastinal adenopathy. Please follow-up on this. Recommend oncology follow-up as well. * Serum serotonin is pending. * Noted to be bradycardic while sleeping and asymptomatic. Metoprolol tartrate decreased to 12.5 mg every 12 hours. * Patient discharged on 48-hour Holter monitor. Consider cardiology follow-up. * New DVT noted. Patient started on Eliquis 10 mg twice daily here however her insurance reportedly will not cover this. We will therefore switch to 15 mg twice daily Xarelto for a total of 21 days of initial treatment. She should take her first dose of Xarelto tonight, 04/13/2021. She will continue this for 17 more days and then need to be switched to 20 mg daily Xarelto. Please follow-up on this and prescribe accordingly. Consider cardiology follow-up. Consider oncology follow-up regarding new chest lesion. Hospital Course: This is an 80-year-old female presented to ED on 04/08/2021 via [facility] with chest pain which resolved prior to arriving at her ED. She does have a history of hypertension, IL with stent placement 2005, PUD, lung carcinoid with tumor removal and 1994 and PE. Cardiac work-up was essentially normal however patient was noted to have a lipase which was elevated at 683 and her Covid screen was negative. CTA of the chest was obtained and showed a 2.6 cm nodule in the left upper lobe most likely bronchogenic carcinoma and evidence of a left prior thoracotomy. There are also enlarged mediastinal lymph nodes and left hilar adenopathy consistent with metastatic disease. Mild emphysema was also noted. CT scan of the abdomen and pelvis was obtained showing gastric mucosal thickening which may represent gastritis. Differential included viral gastritis and peptic ulcer disease. No other acute findings were noted. She was initially admitted observation status to the ICU as a MedSurg overflow as she was not requiring any oxygen. D-dimer was obtained and was elevated at 2.62. Bilateral lower extremity ultrasound was obtained and returned positive for small amount of clot within the left peroneal vein. She was started on 10 mg twice daily Eliquis. She did begin to require oxygen at 4 L so she was started on remdesivir and 6 mg dexamethasone. Electrolytes were supplemented. She was made n.p.o. due to her elevated lipase/pancreatitis and she did respond well with this. Diet was advanced without any issues. There were no signs of any biliary cause and triglycerides were within normal limits. She denied drinking alcohol. Patient was on 50 mg twice daily metoprolol tartrate however she was noted to have episodes of bradycardia. This was especially apparent while she slept when she would drop into the 30s occasionally. She was asymptomatic during this. Metoprolol was ultimately held and she will be discharged on 12.5 mg twice daily. She will also be discharged on a 48-hour Holter monitor with results to the primary care provider. She was treated with 5 days of remdesivir and dexamethasone. Both were discontinued prior to discharge. She did work with PT and OT who reported her safe for discharge home with no further services. She was weaned off of oxygen prior to discharge. Plan was to discharge on Eliquis however prior to discharge pharmacy did relay that Eliquis is not covered by her insurance plan. She will therefore be discharged on 15 mg twice daily Xarelto for a total of 21 days. After this she should switch to 20 mg daily Xarelto. Prescription for twice daily dosing was sent and primary care provider will need to pear picker a 20-day daily Xarelto in follow-up. She does have a Beattie filter in place, which she reports was placed many years ago after a prior PE. She was discharged home today. Recommend follow-up with primary care provider within 5 days of discharge. Recommend repeat CBC, CMP, and magnesium in follow-up. Please follow-up regarding patient's Xarelto prescription. Patient was instructed to isolate for 20 days from positive test. She was notified that she may be contacted by the [facility]. No new medications were prescribed regarding patient's pancreatitis or COVID-19. She was instructed to continue to utilize her incentive spirometry and Acapella for 1-2 more weeks or until symptoms resolve. Consider cardiology follow-up after discharge. Consider oncology follow-up regarding new lung mass and mediastinal adenopathy. Serum serotonin was ordered and is still pending. Please review this. Patient did note that she may not want further treatment regarding her suspected recurrence of lung cancer. She discharged on 12.5 mg twice daily metoprolol and a Holter monitor as mentioned prior. PCP to monitor this and adjust dosing accordingly in the future. - Patient Instructions Diet: Usual Diet as Tolerated Activity: As Tolerated Driving: Do Not Drive (until feeling better ) Showering/Bathing: May Shower Notify Provider of: Fever, Increased Pain, Nausea and/or Vomiting Other/Special Instructions: Follow-up with primary care provider within 5 days of discharge, sooner if needed. Follow-up with cardiology as discussed. Follow-up with oncology as discussed. Take it easy on your diet. If you note abdominal pain switch to more bland foods or clear liquids. Advance as tolerated from there. This is in regards to your pancreatitis. Due to your blood clot in your leg you were started on a medication called Eliquis. We contacted your pharmacy and this medication is not covered by your insurance plan. We will therefore switch you to Xarelto at discharge, which is very similar but does have different dosing. You will need to take 15 mg twice a day with your first dose tonight, 04/13/2021. You will then continue this twice daily for 17 more days. After this you will switch to a daily 20 mg tablet. You should talk to your primary care provider about the daily dosing, as she will need to send a prescription for this. You completed your Covid treatment while here. No medications will be started for this. You should continue to isolate/quarantine for a total of 20 days from symptom onset. For you this would be on your positive test which was 04/08/2021. Continue to utilize your incentive spirometry (clear/blue device you inhale through) and Acapella (green tube you blow through) for 1 to 2 weeks or until symptoms resolved. He will likely be contacted by a physical aerodynamicist from the [facility] regarding your positive Covid. You should follow their directions. Your heart rate was noted to drop while you slept but you were asymptomatic and it would rise once you were awake. Because of this we will cut your metoprolol dosing down to 12.5 twice a day. Be sure to take this new dosing amount. We will also send you home on a 48-hour heart monitor which was placed prior to discharge. Follow directions on returning this. Should symptoms return or worsen contact primary care provider return to the emergency room. - Discharge Plan *PRESCRIPTION DRUG MONITORING PROGRAM REVIEWED*: No *COPY OF PRESCRIPTION DRUG MONITORING REPORT IN PATIENT ANALIA: No Prescriptions/Med Rec: Metoprolol Tartrate [Lopressor] 12.5 mg PO Q12H #10 tablet Rivaroxaban [Xarelto] 15 mg PO Q12H #34 tab Home Medications: Home Meds Glucosamine/D3/Boswellia Clare [Glucosamine Complex Tablet] 200 mg PO DAILY 01/01/15 [History] Acetaminophen/Diphenhydramine [Tylenol Pm Ex-Strength Caplet] 1 tab PO BEDTIME 01/22/18 [History] Ergocalciferol (Vitamin D2) [Vitamin D2] 2,000 units PO DAILY 01/22/18 [History] Famotidine 20 mg PO BID 01/22/18 [History] Furosemide 40 mg PO DAILY PRN 01/22/18 [History] Multivitamin [Multivitamins] 1 tab PO DAILY 01/22/18 [History] Aspirin [Low Dose Aspirin EC] 81 mg PO DAILY 09/17/19 [History] Sertraline HCl 25 mg PO ASDIRECTED PRN 09/17/19 [History] Metoprolol Tartrate [Lopressor] 12.5 mg PO Q12H #10 tablet 04/13/21 [Rx] Rivaroxaban [Xarelto] 15 mg PO Q12H #34 tab 04/13/21 [Rx] Oxygen Therapy Mode: Room Air Patient Handouts: Acute Pancreatitis, [id number], 10 Things You Can Do to Manage Your COVID-19 Symptoms at Home - CDC, Fat and Cholesterol Restricted Eating Plan, [id number], Coronavirus Information 11/16/19, Apixaban oral tablets, Prevent the Spread of COVID-19 if You Are Sick - CDC, Sepsis, Self Care, Adult Forms: ED Department Discharge Referrals: Ching Moraes NP [Primary Care Provider] - 04/20/21 10:30 am - Discharge Summary/Plan Comment DC Time >30 min.: Yes Total # of Minutes for Discharge Time: 45 - General Info Date of Service: 04/13/21 Admission Dx/Problem (Free Text: Pancreatitis Functional Status: Reports: Pain Controlled, Tolerating Diet, Ambulating, Urinating, Incentive Spirometry, Other (Acapella ). Denies: New Symptoms - Review of Systems General: Reports: No Symptoms. Denies: Fever, Weakness, Fatigue, Malaise, Chills HEENT: Reports: No Symptoms. Denies: Headaches, Sore Throat Pulmonary: Reports: Shortness of Breath (baseline). Denies: Cough, Sputum Cardiovascular: Reports: Dyspnea on Exertion (baseline). Denies: Chest Pain, Palpitations, Edema Gastrointestinal: Reports: No Symptoms. Denies: Abdominal Pain, Constipation, Diarrhea, Nausea, Vomiting Genitourinary: Reports: No Symptoms. Denies: Pain Musculoskeletal: Reports: No Symptoms Skin: Reports: No Symptoms. Denies: Cyanosis Neurological: Reports: No Symptoms. Denies: Confusion, Pre-Existing Deficit, Difficulty Walking, Gait Disturbance Psychiatric: Reports: No Symptoms - Patient Data Vitals - Most Recent: Last Vital Signs Temp 96.6 F L 04/13/21 07:15 Pulse 71 04/13/21 08:20 Resp 18 04/13/21 07:15 BP 136/91 H 04/13/21 08:20 Pulse Ox 92 L 04/13/21 07:15 Weight - Most Recent: 192 lb 11.2 oz I&O - Last 24 hours: Intake & Output 04/12/21 04/13/21 04/13/21 22:59 06:59 14:59 Intake Total 50 260 Output Total 400 Balance -350 260 Med Orders - Current: Current Medications Acetaminophen (Acetaminophen 325 Mg Tab) 650 mg PO Q4H PRN PRN Reason: Pain (Mild 1-3)/fever Last Admin: 04/12/21 23:20 Dose: 650 mg Documented by: Albuterol (Albuterol 6.7 Gm Inhaler) 0 gm INH Q2H PRN PRN Reason: SOB/Wheezing Apixaban (Apixaban 5 Mg Tab) 10 mg PO BID [facility] Stop: 04/16/21 09:01 Last Admin: 04/13/21 08:19 Dose: 10 mg Documented by: Apixaban (Apixaban 5 Mg Tab) 5 mg PO BID [facility] Dexamethasone (Dexamethasone 4 Mg Tab) 6 mg PO DAILY [facility] Stop: 04/17/21 09:01 Last Admin: 04/13/21 08:19 Dose: 6 mg Documented by: Famotidine (Famotidine 20 Mg Tab) 20 mg PO DAILY [facility] Last Admin: 04/13/21 08:21 Dose: 20 mg Documented by: Hydralazine HCl (Hydralazine 20 Mg/Ml Sdv) 10 mg IVPUSH Q6H PRN PRN Reason: Hypertension Last Admin: 04/09/21 20:16 Dose: 10 mg Documented by: Hydromorphone HCl (Hydromorphone 0.5 Mg/0.5 Ml Syringe) 0.5 mg IVPUSH Q2H PRN PRN Reason: Pain (severe 7-10) Last Admin: 04/08/21 16:10 Dose: 0.5 mg Documented by: Metoprolol Tartrate (Metoprolol Tartrate 25 Mg Tab) 12.5 mg PO Q12H [facility] Last Admin: 04/13/21 08:20 Dose: 12.5 mg Documented by: Ondansetron HCl (Ondansetron 4 Mg/2 Ml Sdv) 4 mg IV Q6H PRN PRN Reason: Nausea/Vomiting Last Admin: 04/08/21 17:47 Dose: 4 mg Documented by: Ondansetron HCl (Ondansetron 4 Mg Tab.Dis) 4 mg PO Q6H PRN PRN Reason: Nausea/Vomiting Oxycodone HCl (Oxycodone 5 Mg Tab) 5 mg PO Q4H PRN PRN Reason: Pain (moderate 4-6) Last Admin: 04/10/21 12:08 Dose: 5 mg Documented by: Sertraline HCl (Sertraline 25 Mg Tab) 25 mg PO ASDIRECTED PRN PRN Reason: Anxiety Last Admin: 04/09/21 23:01 Dose: 25 mg Documented by: Discontinued Medications Apixaban (Apixaban 5 Mg Tab) 5 mg PO BID [facility] Aspirin (Aspirin 81 Mg Tab.Chew) 324 mg PO ONETIME ONE Stop: 04/08/21 08:10 Last Admin: 04/08/21 09:30 Dose: 324 mg Documented by: Aspirin (Aspirin 81 Mg Tab.Ec) 81 mg PO DAILY [facility] Last Admin: 04/09/21 08:49 Dose: 81 mg Documented by: Enoxaparin Sodium (Enoxaparin 40 Mg/0.4 Ml Syringe) 40 mg SUBCUT DAILY [facility] Last Admin: 04/09/21 08:50 Dose: 40 mg Documented by: Fentanyl (Fentanyl 100 Mcg/2 Ml Sdv) 25 mcg IVPUSH ONETIME ONE Stop: 04/08/21 09:53 Last Admin: 04/08/21 09:57 Dose: 25 mcg Documented by: Fentanyl (Fentanyl 100 Mcg/2 Ml Sdv) 25 mcg IVPUSH ONETIME ONE Stop: 04/08/21 10:49 Last Admin: 04/08/21 10:58 Dose: 25 mcg Documented by: Sodium Chloride (Normal Saline) 100 mls @ 75 mls/hr IV ASDIRECTED [facility] Dextrose/Lactated Ringer's (Dextrose 5%-Lactated Ringers) 1,000 mls @ 100 mls/hr IV ASDIRECTED [facility] Last Admin: 04/09/21 00:18 Dose: 100 mls/hr Documented by: Remdesivir 200 mg/ Sodium (Chloride) 250 mls @ 250 mls/hr IV Q24H [facility] Stop: 04/08/21 17:29 Last Admin: 04/08/21 16:39 Dose: 250 mls/hr Documented by: Remdesivir 100 mg/ Sodium (Chloride) 100 mls @ 100 mls/hr IV Q24H [facility] Stop: 04/12/21 17:59 Last Admin: 04/12/21 17:53 Dose: 100 mls/hr Documented by: Magnesium Sulfate 2 gm/ Premix 50 mls @ 25 mls/hr IV ONETIME ONE Stop: 04/09/21 11:52 Last Admin: 04/09/21 10:25 Dose: 25 mls/hr Documented by: Magnesium Sulfate 2 gm/ Premix 50 mls @ 25 mls/hr IV ONETIME ONE Stop: 04/12/21 11:53 Last Admin: 04/12/21 10:35 Dose: 25 mls/hr Documented by: Iopamidol (Iopamidol 755 Mg/Ml 100 Ml Bottle) 100 ml IVPUSH ONETIME ONE Stop: 04/08/21 09:56 Last Admin: 04/08/21 10:17 Dose: 100 ml Documented by: Iopamidol (Iopamidol 755 Mg/Ml 50 Ml Bottle) 25 ml IVPUSH ONETIME ONE Stop: 04/08/21 09:59 Last Admin: 04/08/21 10:17 Dose: 25 ml Documented by: Metoprolol Tartrate (Metoprolol Tartrate 50 Mg Tab) 50 mg PO BID [facility] Last Admin: 04/09/21 08:50 Dose: 50 mg Documented by: Metoprolol Tartrate (Metoprolol Tartrate 25 Mg Tab) 25 mg PO Q12H [facility] Last Admin: 04/10/21 08:24 Dose: Not Given Documented by: - Exam Quality Assessment: Reports: DVT Prophylaxis. Denies: Supplemental Oxygen, Urine Catheter General: Reports: Alert, Oriented, Cooperative, No Acute Distress HEENT: Reports: Pupils Equal, Pupils Reactive, Mucous Membr. Moist/[place] Neck: Reports: Supple, Trachea Midline Lungs: Reports: Clear to Auscultation, Normal Respiratory Effort Cardiovascular: Reports: Regular Rate, Regular Rhythm, No Murmurs GI/Abdominal Exam: Normal Bowel Sounds, Soft, Non-Tender, No Distention (Female) Exam: Deferred Rectal (Female) Exam: Deferred Back Exam: Reports: Normal Inspection, Full Range of Motion Extremities: Normal Inspection, Normal Range of Motion, Non-Tender, No Pedal Edema, Normal Capillary Refill Skin: Reports: Warm, Dry, Intact Neurological: Reports: No New Focal Deficit Psy/Mental Status: Reports: Alert, Normal Affect, Normal Mood <Eulogio Zuniga - Last Filed: 04/13/21 17:32> Discharge Summary - Referral to Home Health Primary Care Physician: Ching Moraes FRAME TABLE OPERATOR - Patient Summary/Data Consults: Consultations 04/08/21 14:09 Consult to Case Management/Hedis Specialist [CONS] Routine 04/08/21 14:13 OT Evaluation and Treatment [CONS] Routine PT Evaluation and Treatment [CONS] Routine Respiratory Care Assess and Treatment [CONS] Routine 04/10/21 11:47 Consult to Fulfillment Coordinator [CONS] Routine - General Info Admission Dx/Problem (Free Text: CTA of the chest with contrast was obtained and shows a 2.9 cm nodule in the left upper lobe most likely bronchogenic carcinoma; will need close follow up with PCP - Patient Data Vitals - Most Recent: Last Vital Signs Temp 96.6 F L 04/13/21 07:15 Pulse 71 04/13/21 08:20 Resp 18 04/13/21 07:15 BP 136/91 H 04/13/21 08:20 Pulse Ox 92 L 04/13/21 07:15 I&O - Last 24 hours: Intake & Output 04/13/21 04/13/21 04/13/21 06:59 14:59 22:59 Intake Total 260 Balance 260 Lab Results - Last 24 hrs: Laboratory Results - last 24 hr 04/08/21 Range/Units 08:17 Serotonin 27 (0-420) ng/mL Med Orders - Current: Current Medications Discontinued Medications Acetaminophen (Acetaminophen 325 Mg Tab) 650 mg PO Q4H PRN PRN Reason: Pain (Mild 1-3)/fever Last Admin: 04/12/21 23:20 Dose: 650 mg Documented by: Albuterol (Albuterol 6.7 Gm Inhaler) 0 gm INH Q2H PRN PRN Reason: SOB/Wheezing Apixaban (Apixaban 5 Mg Tab) 10 mg PO BID [facility] Stop: 04/16/21 09:01 Last Admin: 04/13/21 08:19 Dose: 10 mg Documented by: Apixaban (Apixaban 5 Mg Tab) 5 mg PO BID [facility] Apixaban (Apixaban 5 Mg Tab) 5 mg PO BID [facility] Aspirin (Aspirin 81 Mg Tab.Chew) 324 mg PO ONETIME ONE Stop: 04/08/21 08:10 Last Admin: 04/08/21 09:30 Dose: 324 mg Documented by: Aspirin (Aspirin 81 Mg Tab.Ec) 81 mg PO DAILY [facility] Last Admin: 04/09/21 08:49 Dose: 81 mg Documented by: Dexamethasone (Dexamethasone 4 Mg Tab) 6 mg PO DAILY [facility] Stop: 04/17/21 09:01 Last Admin: 04/13/21 08:19 Dose: 6 mg Documented by: Enoxaparin Sodium (Enoxaparin 40 Mg/0.4 Ml Syringe) 40 mg SUBCUT DAILY [facility] Last Admin: 04/09/21 08:50 Dose: 40 mg Documented by: Famotidine (Famotidine 20 Mg Tab) 20 mg PO DAILY [facility] Last Admin: 04/13/21 08:21 Dose: 20 mg Documented by: Fentanyl (Fentanyl 100 Mcg/2 Ml Sdv) 25 mcg IVPUSH ONETIME ONE Stop: 04/08/21 09:53 Last Admin: 04/08/21 09:57 Dose: 25 mcg Documented by: Fentanyl (Fentanyl 100 Mcg/2 Ml Sdv) 25 mcg IVPUSH ONETIME ONE Stop: 04/08/21 10:49 Last Admin: 04/08/21 10:58 Dose: 25 mcg Documented by: Hydralazine HCl (Hydralazine 20 Mg/Ml Sdv) 10 mg IVPUSH Q6H PRN PRN Reason: Hypertension Last Admin: 04/09/21 20:16 Dose: 10 mg Documented by: Hydromorphone HCl (Hydromorphone 0.5 Mg/0.5 Ml Syringe) 0.5 mg IVPUSH Q2H PRN PRN Reason: Pain (severe 7-10) Last Admin: 04/08/21 16:10 Dose: 0.5 mg Documented by: Sodium Chloride (Normal Saline) 100 mls @ 75 mls/hr IV ASDIRECTED [facility] Dextrose/Lactated Ringer's (Dextrose 5%-Lactated Ringers) 1,000 mls @ 100 mls/hr IV ASDIRECTED [facility] Last Admin: 04/09/21 00:18 Dose: 100 mls/hr Documented by: Remdesivir 200 mg/ Sodium (Chloride) 250 mls @ 250 mls/hr IV Q24H [facility] Stop: 04/08/21 17:29 Last Admin: 04/08/21 16:39 Dose: 250 mls/hr Documented by: Remdesivir 100 mg/ Sodium (Chloride) 100 mls @ 100 mls/hr IV Q24H [facility] Stop: 04/12/21 17:59 Last Admin: 04/12/21 17:53 Dose: 100 mls/hr Documented by: Magnesium Sulfate 2 gm/ Premix 50 mls @ 25 mls/hr IV ONETIME ONE Stop: 04/09/21 11:52 Last Admin: 04/09/21 10:25 Dose: 25 mls/hr Documented by: Magnesium Sulfate 2 gm/ Premix 50 mls @ 25 mls/hr IV ONETIME ONE Stop: 04/12/21 11:53 Last Admin: 04/12/21 10:35 Dose: 25 mls/hr Documented by: Magnesium Sulfate 4 gm/ Premix 50 mls @ 12.5 mls/hr IV ONETIME ONE Stop: 04/13/21 12:34 Last Admin: 04/13/21 09:02 Dose: 12.5 mls/hr Documented by: Iopamidol (Iopamidol 755 Mg/Ml 100 Ml Bottle) 100 ml IVPUSH ONETIME ONE Stop: 04/08/21 09:56 Last Admin: 04/08/21 10:17 Dose: 100 ml Documented by: Iopamidol (Iopamidol 755 Mg/Ml 50 Ml Bottle) 25 ml IVPUSH ONETIME ONE Stop: 04/08/21 09:59 Last Admin: 04/08/21 10:17 Dose: 25 ml Documented by: Metoprolol Tartrate (Metoprolol Tartrate 50 Mg Tab) 50 mg PO BID [facility] Last Admin: 04/09/21 08:50 Dose: 50 mg Documented by: Metoprolol Tartrate (Metoprolol Tartrate 25 Mg Tab) 25 mg PO Q12H [facility] Last Admin: 04/10/21 08:24 Dose: Not Given Documented by: Metoprolol Tartrate (Metoprolol Tartrate 25 Mg Tab) 12.5 mg PO Q12H [facility] Last Admin: 04/13/21 08:20 Dose: 12.5 mg Documented by: Ondansetron HCl (Ondansetron 4 Mg/2 Ml Sdv) 4 mg IV Q6H PRN PRN Reason: Nausea/Vomiting Last Admin: 04/08/21 17:47 Dose: 4 mg Documented by: Ondansetron HCl (Ondansetron 4 Mg Tab.Dis) 4 mg PO Q6H PRN PRN Reason: Nausea/Vomiting Oxycodone HCl (Oxycodone 5 Mg Tab) 5 mg PO Q4H PRN PRN Reason: Pain (moderate 4-6) Last Admin: 04/10/21 12:08 Dose: 5 mg Documented by: Sertraline HCl (Sertraline 25 Mg Tab) 25 mg PO ASDIRECTED PRN PRN Reason: Anxiety Last Admin: 04/09/21 23:01 Dose: 25 mg Documented by:
[2021-04-13] MEDS ORDERED: Magnesium Sulfate/Water 4 GM in Premix Bag 1 BAG IV ONE (08:35)
[2021-04-13] MEDS ORDERED: Metoprolol Tartrate 25 MG Tab PO SCH (09:00)
--- NOTE | 2021-04-16 15:55 | PCM.SN.2 ---
- Free Text/Narrative Note: EKG Sinus rhythm; rate 58 QTc 424
[2021-04-16] MEDS ORDERED: Apixaban 5 MG Tab PO SCH (21:00)
== END 2021-04-13 13:20 | disposition home or self-care (01) | DRG 177 ==
LOC: SUPCPDRO 07:49 → JD.ED 07:49 → JD.ICU 13:38 → OBSVTOIN 16:06 → JD.MS 04-10 14:45
PROVIDERS: ADMIT Pediatrics; ATTEND Pediatrics
PROC: 8E0ZXY6 Isolation (ICD-10-PCS; principal; 2021-04-08)
PROC: XW033E5 Introduction of Remdesivir Anti-infective into Peripheral Vein, Percutaneous Approach, New Technology Group 5 (ICD-10-PCS; 2021-04-08)
DX: U07.1 COVID-19 (principal); K85.90 Acute pancreatitis without necrosis or infection, unspecified; R91.8 Other nonspecific abnormal finding of lung field; J30.9 Allergic rhinitis, unspecified; Z86.74 Personal history of sudden cardiac arrest; I82.452 Acute embolism and thrombosis of left peroneal vein; Z85.118 Personal history of other malignant neoplasm of bronchus and lung; C34.92 Malignant neoplasm of unspecified part of left bronchus or lung; K27.9 Peptic ulcer, site unspecified, unspecified as acute or chronic, without hemorrhage or perforation; R59.0 Localized enlarged lymph nodes; I10 Essential (primary) hypertension; M54.9 Dorsalgia, unspecified; G89.29 Other chronic pain; E83.42 Hypomagnesemia; J43.9 Emphysema, unspecified; Z79.82 Long term (current) use of aspirin; Z86.711 Personal history of pulmonary embolism; I25.2 Old myocardial infarction; Z95.5 Presence of coronary angioplasty implant and graft; Z95.828 Presence of other vascular implants and grafts; Z87.891 Personal history of nicotine dependence; Z79.899 Other long term (current) drug therapy
CPT/HCPCS: 36415; 71045; 71275; 74177; 80053; 83690; 84260; 84478; 84484 ×2; 85025; 85610; 85730; 93005 ×2; 96374; 96376; 99285; A9270 ×2; J0360; J1650; J3010 ×2; J7121; Q9967 ×2; U0002; 82947; 83735; 85379; 93010; 93970; 93970-26; 94667; 94668; 94760; 94761; 97110-GP; 97161-GP; 97530-GP; 99223; 99233; 99239; 99284; J1170; J2405; J3475; J7050; J8540

== ENCOUNTER 2021-04-17 10:45 | Emergency (ER) | payer MEDICARE ==
[2021-04-17 10:54] VITALS: BP 154/74; PULSE 79
[2021-04-17] MEDS ORDERED: Acetaminophen 325 MG Tab PO ONE (11:45)
--- NOTE | 2021-04-17 12:16 | EDM.PDOC ---
ED HPI GENERAL MEDICAL PROBLEM - General Chief Complaint: General Stated Complaint: [facility] Time Seen by Provider: 04/17/21 11:04 Source of Information: Reports: Patient History Limitations: Reports: No Limitations, Other (ED vital signs reveal a temp of 97.6, pulse of 79, respiratory rate of 18, blood pressure 154/74, pulse ox 93% on room air) - History of Present Illness INITIAL COMMENTS - FREE TEXT/NARRATIVE: 80-year-old female presents to the emergency department with complaints of generalized body aches, headache and cough. The patient was recently hospitalized for approximately week here at this hospital and just discharged on May 14, 2021. On 10 May the patient presented to the ER and was diagnosed with Covid. She did receive 5 days of remdesivir treatment as well as 6 days of oral dexamethasone treatment. While in the hospital it was discovered that the patient did have a DVT and was started on Eliquis however her insurance would not cover the Eliquis so she was switched to Xarelto. Patient was discharged to home on 14 May as stated above and states that she felt good for about 1 day. After that she developed generalized body aches and a frontal headache. She states that she continues to have a cough and some mild shortness of breath. She denies any fever, chills, vomiting, diarrhea or constipation. She does state however that she has had nausea and decreased appetite. Also while in the hospital the patient did become bradycardic and her metoprolol dosage was decreased from 50 twice daily to 12.5 mg twice daily. In addition it was discovered that the patient did have a mass in her lung and she does carry a history of lung cancer. Upon discharge it was recommended that she follow-up with oncology and cardiology. She states she has not done any of this as she has been on quarantine up until 28 May. She states she has been taking Tylenol for the headache and body aches up until today. - Related Data Allergies Allergy/AdvReac Type Severity Reaction Status Date / Time No Known Allergies Allergy Verified 04/17/21 10:54 Home Meds: Home Meds Glucosamine/D3/Boswellia Clare [Glucosamine Complex Tablet] 200 mg PO DAILY 01/01/15 [History] Acetaminophen/Diphenhydramine [Tylenol Pm Ex-Strength Caplet] 1 tab PO BEDTIME 01/22/18 [History] Ergocalciferol (Vitamin D2) [Vitamin D2] 2,000 units PO DAILY 01/22/18 [History] Famotidine 20 mg PO BID 01/22/18 [History] Furosemide 40 mg PO DAILY PRN 01/22/18 [History] Multivitamin [Multivitamins] 1 tab PO DAILY 01/22/18 [History] Aspirin [Low Dose Aspirin EC] 81 mg PO DAILY 09/17/19 [History] Sertraline HCl 25 mg PO ASDIRECTED PRN 09/17/19 [History] Metoprolol Tartrate [Lopressor] 12.5 mg PO Q12H #10 tablet 04/13/21 [Rx] Rivaroxaban [Xarelto] 15 mg PO Q12H #34 tab 04/13/21 [Rx] levoFLOXacin [Levaquin] 750 mg PO DAILY #4 tab 04/17/21 [Rx] Past Medical History HEENT History: Reports: Allergic Rhinitis Cardiovascular History: Reports: Hypertension, Prior Cardiac Arrest, Stents Other Cardiovascular History: placed 2005 Respiratory History: Reports: Pneumonia, Recurrent, Other (See Below) Other Respiratory History: "walking pneumonia" Gastrointestinal History: Reports: Other (See Below) Other Gastrointestinal History: bleeding ulcer Genitourinary History: Reports: UTI, Recurrent 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: Musculoskeletal History: Reports: Fracture Endocrine/Metabolic History: Reports: Obesity/BMI 30+ Hematologic History: Reports: Anticoagulation Therapy, Blood Transfusion(s) Oncologic (Cancer) History: Reports: Other (See Below) Other Oncologic History: lung CA; carcenoid tumor removed in 1993 - Infectious Disease History Infectious Disease History: Reports: Chicken Pox, Measles, Novel Coronavirus - Past Surgical History HEENT Surgical History: Reports: Adenoidectomy, Tonsillectomy Respiratory Surgical History: Reports: Other (See Below) Other Respiratory Surgeries/Procedures: lung surgery; carcenoid tumor removed in 1993; pulmonary embolism Social & Family History - Family History Family Medical History: No Pertinent Family History - Tobacco Use Tobacco Use Status *Q: Former Tobacco User Used Tobacco, but Quit: Yes Month/Year Tobacco Last Used: 1999 - Caffeine Use Caffeine Use: Reports: None Caffeine Use Comment: 2 cups/day - Recreational Drug Use Recreational Drug Use: No ED ROS GENERAL - Review of Systems Review Of Systems: Comprehensive ROS is negative, except as noted in HPI. ED EXAM, GENERAL - Physical Exam Exam: See Below Exam Limited By: No Limitations General Appearance: Alert, WD/WN, No Apparent Distress Eye Exam: Bilateral Eye: EOMI, PERRL Ears: Normal External Exam. No: Hearing Grossly Normal (Hard of hearing) Nose: Normal Inspection Throat/Mouth: Normal Inspection, Normal Lips, Normal Voice, No Airway Compromise Head: Atraumatic, Normocephalic Neck: Normal Inspection, Supple Respiratory/Chest: No Respiratory Distress, No Accessory Muscle Use, Chest Non- Tender. No: Lungs Clear (Fine crackles noted to bilateral bases), Normal Breath Sounds Cardiovascular: Normal Peripheral Pulses, Regular Rate, Rhythm, No Edema, No Murmur Peripheral Pulses: 2+: Radial (L), Radial (R) GI/Abdominal: Normal Bowel Sounds, Soft, Non-Tender, No Distention (Female) Exam: Deferred Rectal (Female) Exam: Deferred Back Exam: Normal Inspection Extremities: Normal Inspection, Normal Range of Motion, Non-Tender, No Pedal Edema, Normal Capillary Refill Neurological: Alert, Oriented, Normal Cognition Psychiatric: Normal Affect, Normal Mood Skin Exam: Warm, Dry, Intact, Normal Color, No Rash Lymphatic: No Adenopathy #1 Interpretation EKG Date: 04/17/21 Time: 11:57 Rhythm: NSR Rate (Beats/Min): 79 [place]: Normal P-Wave: Present QRS: Normal ST-T: Normal QT: Normal EKG Interpretation Comments: Per Dr. Romano interpretation: Sinus rhythm at 79 bpm; probable left atrial enlargement Course - Vital Signs Text/Narrative:: As stated above [age]-year-old female presents with generalized body aches, headache, decreased appetite and nausea. Diagnosed with Covid on May 09, 2021 and subsequently hospitalized for a week. She did receive remdesivir and dexamethasone. It was also discovered at that time that the patient had a DVT and was started on Xarelto. She states when she was discharged to home she felt good for about a day and then started feeling worse again. I have ordered a CT of the head as the headache is new onset and she was recently started on Xarelto, labs to include a CBC, CMP, C-reactive protein, magnesium, D-dimer. We will get a portable view of the chest. And we will give her Tylenol 650 mg p.o. for generalized body aches and headache pain. Last Recorded V/S: Last Vital Signs Temp 97.6 F 04/17/21 10:51 Pulse 79 04/17/21 10:51 Resp 18 04/17/21 10:51 BP 154/74 H 04/17/21 10:51 Pulse Ox 93 L 04/17/21 10:51 - Orders/Labs/Meds Orders: Active Orders 24 hr Category Date Time Status EKG Documentation Completion [RC] STAT Care 04/17/21 11:23 Active Sodium Chloride 0.9% [Saline Flush] Med 04/17/21 12:38 Active 10 ml FLUSH ONETIME PRN Medication Orders Sodium Chloride (Sodium Chloride 0.9% 10 Ml Syringe) 10 ml FLUSH ONETIME PRN PRN Reason: IV FLUSH Last Admin: 04/17/21 12:52 Dose: 10 ml Documented by: MARIA T Labs: Laboratory Tests 04/17/21 04/17/21 04/17/21 Range/Units 11:39 11:39 11:39 WBC 6.93 (3.98-10.04) K/mm3 RBC 4.88 (3.98-5.22) M/mm3 Hgb 14.1 (11.2-15.7) gm/dl Hct 44.3 (34.1-44.9) % MCV 90.8 (79.4-94.8) fl MCH 28.9 (25.6-32.2) pg MCHC 31.8 L (32.2-35.5) g/dl RDW Std Deviation 45.9 (36.4-46.3) fL Plt Count 173 L (182-369) K/mm3 MPV 10.7 (9.4-12.3) fl Neut % (Auto) 69.1 (34.0-71.1) % Lymph % (Auto) 10.0 L (19.3-51.7) % [place] % (Auto) 16.9 H (4.7-12.5) % Eos % (Auto) 0.4 L (0.7-5.8) Baso % (Auto) 0.3 (0.1-1.2) % Neut # (Auto) 4.79 (1.56-6.13) K/mm3 Lymph # (Auto) 0.69 L (1.18-3.74) K/mm3 [place] # (Auto) 1.17 H (0.24-0.36) K/mm3 Eos # (Auto) 0.03 L (0.04-0.36) K/mm3 Baso # (Auto) 0.02 (0.01-0.08) K/mm3 Manual Slide Review Abnormal smear D-Dimer, Quantitative 1.20 H (0.19-0.50) mg/L Sodium 142 (136-145) mEq/L Potassium 4.3 (3.5-5.1) mEq/L Chloride 107 (98-107) mEq/L Carbon Dioxide 25 (21-32) mEq/L Anion Gap 14.3 (5-15) BUN 16 (7-18) mg/dL Creatinine 1.0 (0.55-1.02) mg/dL Est Cr Clr Drug Dosing 42.00 mL/min Estimated GFR (MDRD) 53 (>60) mL/min BUN/Creatinine Ratio 16.0 (14-18) Glucose 106 H (70-99) mg/dL Calcium 8.5 (8.5-10.1) mg/dL Magnesium 2.0 (1.8-2.4) mg/dL Total Bilirubin 0.6 (0.2-1.0) mg/dL AST 18 (15-37) U/L ALT 27 (14-59) U/L Alkaline Phosphatase 81 (46-116) U/L C-Reactive Protein 1.6 H* (<1.0) mg/dL Total Protein 6.2 L (6.4-8.2) g/dl Albumin 3.1 L (3.4-5.0) g/dl Globulin 3.1 gm/dL Albumin/Globulin Ratio 1.0 (1-2) TSH 3rd Generation 0.916 (0.358-3.74) uIU/mL Meds: Medications Generic Name Dose Route Start Last Admin Trade Name Freq PRN Reason Stop Dose Admin Sodium Chloride 10 ml 04/17/21 12:38 04/17/21 12:52 Sodium Chloride 0.9% 10 Ml Syringe FLUSH 10 ml ONETIME PRN Administration IV FLUSH Discontinued Medications Generic Name Dose Route Start Last Admin Trade Name Freq PRN Reason Stop Dose Admin Acetaminophen 650 mg 04/17/21 11:45 04/17/21 12:04 Acetaminophen 325 Mg Tab PO 04/17/21 11:46 650 mg NOW ONE Administration Iopamidol 80 ml 04/17/21 12:38 04/17/21 12:52 Iopamidol 612 Mg/Ml 100 Ml Bottle IVPUSH 04/17/21 12:39 100 ml ONETIME ONE Administration Levofloxacin 750 mg 04/17/21 13:43 Levofloxacin 750 Mg Tab PO 04/17/21 13:44 NOW STA - Re-Assessments/Exams Free Text/Narrative Re-Assessment/Exam: 04/17/21 12:[address] [facility] [address] of the head without contrast: No acute hemorrhage. Chronic right cerebral infarcts as described. 04/17/21 13:14 Hematology reveals a WBC of 6.93, hemoglobin 14.1, hematocrit 44.3, platelet count 173 D-dimer 1.20 however this is significantly decreased from when the patient was admitted to the hospital. Elevation is likely residual from having Covid and DVT. Patient is on Xarelto. Chemistry reveals a sodium of 142, potassium 4.3, carbon dioxide 25, anion gap 14.3, BUN 16, creatinine 1.0, glucose 106, magnesium 2.0, C-reactive protein 1.6 which is also decreased, TSH 0.916 Portable view of the chest was reviewed by myself and Dr. Romano. There is a questionable area of infiltrate in the right middle lobe. I have ordered a CT of the lungs for further evaluation. Report is pending. 04/17/21 13:[address] of the chest: 1. Increasing nodularity within both sides of the chest suspicious for metastatic disease. 2. Mediastinal and left hilar adenopathy is seen. 3. Emphysematous change and cyst within the right lobe of the liver. 4. Parenchymal densities within both lung bases, difficult to exclude mild pneumonia if patient is symptomatic. Patient has been afebrile, white count is normal, and C-reactive protein is decreasing since hospital stay. Patient does however report that she still has a cough. We will treat her for pneumonia with Levaquin 750 mg p.o. daily x5 days. 04/17/21 13:52 Radiologist impression portable view of the chest: 1. Density within the left lung base likely most representing possible neoplasm. This is seen on prior CT study. 2. Minimal atelectasis within the right lung base. 3. Nothing acute is otherwise appreciated on portable chest x-ray. Radiologist impression head CT: 1. Old infarct within the right basal ganglia with ex vacuo enlargement of the right lateral ventricle. 2. Other senescent change as noted above. 3. Slight sinus findings which are likely chronic. 4. Nothing acute is definitely appreciated. Departure - Departure Time of Disposition: 13:54 Disposition: Home, Self-Care 01 Condition: Good Clinical Impression: Pneumonia - Discharge Information Prescriptions: levoFLOXacin [Levaquin] 750 mg PO DAILY #4 tab Referrals: Ching Moraes [employer] [Primary Care Provider] - Forms: ED Department Discharge Additional Instructions: You were seen in the emergency department today with complaints of headache, body aches and cough. Labs were completed which are all improving compared to your lab work while you are in the hospital. Your white blood cell count is not elevated which does not indicate you have any sort of infection. CT scan of the chest did show a questionable pneumonia so we will treat you for this. You will be started on Levaquin 750 mg by mouth once daily. Your dose for today has been given to you while in the emergency room. A prescription has been sent to your pharmacy for the remaining [address] scan of the head was also unremarkable. Headache is likely due to Covid. Keep in mind that this could last for at least a month. You may take Tylenol 650 mg every 4 hours as needed for headache or body aches. Be sure to drink plenty of fluids to stay hydrated and get plenty rest. CT scan of the chest did show increasing nodularity within both sides of the chest. It is imperative that you follow-up with oncology once you are out of quarantine. Sepsis Event Note (ED) - Focused Exam Vital Signs: Vital Signs Temp Pulse Resp BP Pulse Ox 04/17/21 10:51 97.6 F 79 18 154/74 H 93 L - My Orders Last 24 Hours: My Active Orders 04/17/21 11:23 EKG Documentation Completion [RC] STAT 04/17/21 12:38 Sodium Chloride 0.9% [Saline Flush] 10 ml FLUSH ONETIME PRN - Assessment/Plan Last 24 Hours: My Active Orders 04/17/21 11:23 EKG Documentation Completion [RC] STAT 04/17/21 12:38 Sodium Chloride 0.9% [Saline Flush] 10 ml FLUSH ONETIME PRN
[2021-04-17] MEDS ORDERED: Sodium Chloride 0.9% 10 ML Syringe FLUSH PRN (12:38)
[2021-04-17] MEDS ORDERED: Iopamidol 612 MG/ML 100 ML Bottle IVPUSH ONE (12:38)
--- NOTE | 2021-04-17 13:17 | CT ---
CT chest Technique: Multiple axial sections were obtained from above the dome of the diaphragm inferiorly through the pubic symphysis. Intravenous contrast was utilized. Reconstructed coronal and sagittal images were obtained. Comparison: Previous CT chest study of 04/08/21. Findings: Thoracic aorta shows no aneurysm. Mediastinal adenopathy is noted. Largest lymph node measures 2.4 cm. Slightly enlarged lymph node is noted within the left hilar region. Nodular densities are noted within the right upper chest. These have increased in prominence from previous exam in size and number. Largest nodule measures 2.3 cm. These are suspicious for metastatic disease. Other nodularity is seen within other portions of the chest which also are an interval change. Dominant nodule within the left lobe measures 2.8 cm in size which is similar to prior study. Slight parenchymal density is noted within both lung bases, worse on the right side. Difficult to exclude pneumonia if patient has infectious symptoms. Emphysematous change is also noted. Cyst is noted within the right kidney measuring 6.9 cm. Bone window settings were reviewed which show no acute osseous abnormality. Impression: 1. Increasing nodularity within both sides of the chest suspicious for metastatic disease. 2. Mediastinal and left hilar adenopathy is seen. 3. Emphysematous change and cyst within the right lobe of the liver. 4. Parenchymal densities within both lung bases, difficult to exclude mild pneumonia if patient is symptomatic. Diagnostic code #9
[2021-04-17] MEDS ORDERED: Levofloxacin 750 MG Tab PO STA (13:43)
--- NOTE | 2021-04-17 13:43 | CR ---
Chest: Portable view of the chest was obtained. Comparison: Prior chest CT study of 04/17/21 Focal density is seen within the left lung base compatible with possible neoplasm, this is stable from prior chest CT. Slight density within the right lung base adjacent to the hemidiaphragm most likely representing an area of atelectasis. Lungs otherwise are clear. Heart size and mediastinum are within normal limits for portable technique. Impression: 1. Density within the left lung base most likely representing possible neoplasm. This is seen on prior CT study. 2. Minimal atelectasis within the right lung base. 3. Nothing acute is otherwise appreciated on portable chest x-ray. Diagnostic code #9
--- NOTE | 2021-04-17 13:51 | CT ---
Head CT Technique: Multiple axial sections through the brain were obtained. Intravenous contrast not utilized. Comparison: No prior intracranial imaging is available. Findings: Old infarct is noted within the right basal ganglia. Slight ex vacuole enlargement of the right lateral ventricle is seen from a prior infarct. Diminished density is noted within the periventricular white matter compatible with small vessel ischemic demyelination change. There is mild generalized atrophy being seen. No evidence of intracranial hemorrhage is seen. No midline shift or mass-effect is otherwise seen. Bone window settings were reviewed. Visualized mastoid sinuses are clear. Slight mucosal thickening is noted within the ethmoid sinuses. No acute calvarial abnormality is appreciated. Impression: 1. Old infarct within the right basal ganglia with ex vacuole enlargement of the right lateral ventricle. 2. Other senescent change as noted above. 3. Slight sinus findings which are likely chronic. 4. Nothing acute is definitely appreciated. Diagnostic code #2 I agree with preliminary report from [facility], finalized on 04/17/21, 1:01 PM CDT, code 1
== END 2021-04-17 16:15 | disposition home or self-care (01) ==
LOC: JD.ED 10:45
DX: J18.9 Pneumonia, unspecified organism (principal); I10 Essential (primary) hypertension; E66.9 Obesity, unspecified; Z68.30 Body mass index [BMI] 30.0-30.9, adult; Z79.01 Long term (current) use of anticoagulants; Z79.82 Long term (current) use of aspirin; Z79.899 Other long term (current) drug therapy; Z86.16 Personal history of COVID-19; Z87.891 Personal history of nicotine dependence
CPT/HCPCS: 36415; 70450; 71045; 71260; 80053; 83735; 84443; 85025; 85379; 86140; 93005; 99285; A9270; Q9967; 93010; 99284

== ENCOUNTER 2023-11-29 10:48 | Inpatient (IN) | payer MEDICARE ==
[2023-11-29] MEDS: Sodium Chloride 0.9% 10 ML Syringe FLUSH PRN ×2 (11:35→12:33)
[2023-11-29 11:45] LABS: BASOPHILS ABSOLUTE AUTO 0.1 K/mm3 (0.0-0.2); BASOPHILS PERCENT AUTO 0.7 % (0.0-1.0); EOSINOPHILS ABSOLUTE AUTO 0.4 K/mm3 (0.0-0.4); EOSINOPHILS PERCENT AUTO 4.4 % (0.0-6.0); HEMOGLOBIN 12.1 gm/dl (12.0-16.0); IMMATURE GRAN ABSOLUTE AUTO 0.02 K/mm3 (0.00-0.05); IMMATURE GRAN PERCENT AUTO 0.2 % (0.0-0.4); LYMPHOCYTES ABSOLUTE AUTO 1.3 K/mm3 (1.0-4.8); LYMPHOCYTES PERCENT AUTO 13.9 % (24.0-44.0); MEAN CORPUSCULAR HEMOGLOBIN 28.3 pg (28.0-32.0); MEAN CORPUSCULAR HGB CONC 31.8 g/dl (32.0-36.0); MEAN CORPUSCULAR VOLUME 88.8 fl (83.0-99.0); MEAN PLATELET VOLUME 9.9 fl (9.4-12.3); MONOCYTES ABSOLUTE AUTO 0.7 K/mm3 (0.0-0.8); MONOCYTES PERCENT AUTO 7.4 % (0.0-8.0); NEUTROPHILS ABSOLUTE AUTO 6.7 K/mm3 (1.8-7.7); NEUTROPHILS PERCENT AUTO 73.4 % (41.0-71.0); PLATELET COUNT,PLT 243 K/mm3 (150-400); RED BLOOD CELL COUNT 4.28 M/mm3 (4.10-5.30); WHITE BLOOD CELL COUNT,WBC 9.08 K/mm3 (3.9-11.3)
[2023-11-29 12:18] LABS: A/G RATIO 0.9 (1-2); ALBUMIN 3.1 g/dl (3.4-5.0); ANION GAP 11.6 (5-15); BILIRUBIN TOTAL 0.6 mg/dL (0.2-1.0); BUN/CREATININE RATIO 26.2 (14-18); C-REACTIVE PROTEIN 1.18 mg/dL (<0.30); CALCIUM 9.5 mg/dL (8.5-10.1); CREATININE 1.3 mg/dL (0.55-1.02); EST CRCL DRUG DOSING (CG) 30.7 mL/min; POTASSIUM,K 3.6 mEq/L (3.5-5.1); PROTEIN TOTAL,TP 6.7 g/dl (6.4-8.2)
[2023-11-29] MEDS: Iopamidol 755 Mg/ML 100 ML Bottle IVPUSH ONE (12:32)
[2023-11-29] MEDS: Sodium Chloride 0.9% 45 ML IV SCH (12:33)
[2023-11-29 13:43] LABS: APPEARANCE,URINE CLEAR (Clear); BILIRUBIN,URINE NEGATIVE (Negative); COLOR,URINE LIGHT YELLOW (Yellow); GLUCOSE,URINE NEGATIVE (Negative); KETONES,URINE NEGATIVE (Negative); LEUKOCYTE ESTERASE,URINE NEGATIVE (Negative); NITRITE,URINE NEGATIVE (Negative); OCCULT BLOOD,URINE NEGATIVE (Negative); PH,URINE 6.5 (5.0-8.0); PROTEIN,URINE NEGATIVE (Negative); UROBILINOGEN,URINE 0.2 (0.2-1.0)
[2023-11-29 14:14] LABS: BACTERIA,URINE FEW /hpf (FEW); EPITHELIAL CELLS,URINE 0-5 /hpf (0-5); HYALINE CASTS,URINE 0-5 /lpf (0-5); MUCUS,URINE NOT SEEN /hpf (FEW); RBC,URINE 0-5 /hpf (0-5); WBC,URINE 0-5 /hpf (0-5)
[2023-11-29] MEDS: cefTRIAXone 2 GM in Sodium Chloride 0.9% 100 ML IV ONE (14:27)
[2023-11-29] MEDS ORDERED: Acetaminophen 325 MG Tab PO PRN (14:53)
[2023-11-29] MEDS ORDERED: oxyCODONE 5 MG Tab PO PRN (14:53)
[2023-11-29] MEDS: Azithromycin 500 MG in Sodium Chloride 0.9% 250 ML IV ONE (14:59)
[2023-11-29] MEDS: Albuterol/Ipratropium 3.0-0.5 MG/3 ML Neb Soln NEB SCH (15:05)
[2023-11-29] MEDS: Albuterol/Ipratropium 3.0-0.5 MG/3 ML Neb Soln ONE (15:28)
[2023-11-29] MEDS: Sodium Chloride 0.9% 1,000 ML IV SCH (16:32)
[2023-11-29] MEDS: Metoprolol Tartrate 25 MG Tab PO SCH (21:00)
[2023-11-29] MEDS: Docusate Sodium 100 MG Cap PO SCH (21:00)
[2023-11-29] MEDS: Acetaminophen/HYDROcodone 325-5 MG Tab PO SCH (21:03)
[2023-11-30 05:50] LABS: MEAN CORPUSCULAR HEMOGLOBIN 28.5 pg (28.0-32.0); MEAN CORPUSCULAR HGB CONC 31.6 g/dl (32.0-36.0); MEAN CORPUSCULAR VOLUME 90.3 fl (83.0-99.0); MEAN PLATELET VOLUME 10.2 fl (9.4-12.3); PLATELET COUNT,PLT 253 K/mm3 (150-400); RED BLOOD CELL COUNT 4.21 M/mm3 (4.10-5.30); WHITE BLOOD CELL COUNT,WBC 9.64 K/mm3 (3.9-11.3)
[2023-11-30 06:23] LABS: A/G RATIO 0.9 (1-2); ANION GAP 12.5 (5-15); BILIRUBIN TOTAL 0.4 mg/dL (0.2-1.0); BUN/CREATININE RATIO 21.4 (14-18); CALCIUM 9.4 mg/dL (8.5-10.1); CREATININE 1.4 mg/dL (0.55-1.02); EST CRCL DRUG DOSING (CG) 28.5 mL/min; POTASSIUM,K 3.5 mEq/L (3.5-5.1); PROTEIN TOTAL,TP 6.5 g/dl (6.4-8.2)
[2023-11-30] MEDS: Furosemide 20 MG Tab PO SCH (08:16)
[2023-11-30] MEDS: Sertraline 25 MG Tab PO SCH (08:17)
[2023-11-30] MEDS: Pantoprazole 40 MG Tab.CR PO SCH (08:17)
[2023-11-30] MEDS: Rivaroxaban 10 MG Tab PO SCH (08:17)
[2023-11-30] MEDS: cefTRIAXone 2 GM in Sodium Chloride 0.9% 100 ML IV SCH (14:13)
[2023-11-30] MEDS: Azithromycin 500 MG in Sodium Chloride 0.9% 250 ML IV SCH (14:50)
[2023-11-30] MEDS: Temazepam 15 MG Cap PO ONE (20:43)
[2023-12-01 05:46] LABS: HEMATOCRIT 34.6 % (37.0-47.0); HEMOGLOBIN 11.1 gm/dl (12.0-16.0); MEAN CORPUSCULAR HEMOGLOBIN 28.2 pg (28.0-32.0); MEAN CORPUSCULAR HGB CONC 32.1 g/dl (32.0-36.0); MEAN PLATELET VOLUME 10.1 fl (9.4-12.3); PLATELET COUNT,PLT 207 K/mm3 (150-400); RED BLOOD CELL COUNT 3.93 M/mm3 (4.10-5.30); WHITE BLOOD CELL COUNT,WBC 7.77 K/mm3 (3.9-11.3)
[2023-12-01 06:19] LABS: A/G RATIO 0.8 (1-2); ALBUMIN 2.6 g/dl (3.4-5.0); ANION GAP 11.4 (5-15); BILIRUBIN TOTAL 0.3 mg/dL (0.2-1.0); CALCIUM 9.4 mg/dL (8.5-10.1); EST CRCL DRUG DOSING (CG) 39.9 mL/min; POTASSIUM,K 3.4 mEq/L (3.5-5.1); PROTEIN TOTAL,TP 5.9 g/dl (6.4-8.2)
[2023-12-01] MEDS: Temazepam 15 MG Cap PO ONE (21:23)
[2023-12-02] MEDS: Acetaminophen/HYDROcodone 325-5 MG Tab PO PRN (05:01)
[2023-12-02 06:31] LABS: HEMATOCRIT 36.5 % (37.0-47.0); HEMOGLOBIN 11.7 gm/dl (12.0-16.0); MEAN CORPUSCULAR HGB CONC 32.1 g/dl (32.0-36.0); MEAN CORPUSCULAR VOLUME 87.3 fl (83.0-99.0); MEAN PLATELET VOLUME 9.9 fl (9.4-12.3); PLATELET COUNT,PLT 226 K/mm3 (150-400); RED BLOOD CELL COUNT 4.18 M/mm3 (4.10-5.30)
[2023-12-02 06:59] LABS: A/G RATIO 0.8 (1-2); ALBUMIN 2.8 g/dl (3.4-5.0); ANION GAP 12.3 (5-15); BILIRUBIN TOTAL 0.4 mg/dL (0.2-1.0); CALCIUM 9.3 mg/dL (8.5-10.1); EST CRCL DRUG DOSING (CG) 39.9 mL/min; POTASSIUM,K 3.3 mEq/L (3.5-5.1); PROTEIN TOTAL,TP 6.3 g/dl (6.4-8.2)
[2023-12-02 13:10] VITALS: BP 127/69; PULSE 70
== END 2023-12-02 13:36 | disposition other institution (70) | DRG 180 ==
LOC: JD.ED 10:48 → JD.MS 13:14
PROVIDERS: ADMIT Internal Medicine; ATTEND Internal Medicine
DX: C34.92 Malignant neoplasm of unspecified part of left bronchus or lung (principal); R09.02 Hypoxemia; J96.01 Acute respiratory failure with hypoxia; I25.10 Atherosclerotic heart disease of native coronary artery without angina pectoris; I10 Essential (primary) hypertension; Z66 Do not resuscitate; I25.2 Old myocardial infarction; E66.9 Obesity, unspecified; D64.9 Anemia, unspecified; R59.0 Localized enlarged lymph nodes; Z99.89 Dependence on other enabling machines and devices; Z88.8 Allergy status to other drugs, medicaments and biological substances; Z95.5 Presence of coronary angioplasty implant and graft; Z87.11 Personal history of peptic ulcer disease; Z79.01 Long term (current) use of anticoagulants; Z90.49 Acquired absence of other specified parts of digestive tract; Z98.890 Other specified postprocedural states; Z87.891 Personal history of nicotine dependence; Z86.711 Personal history of pulmonary embolism; Z86.16 Personal history of COVID-19; Z68.24 Body mass index [BMI] 24.0-24.9, adult; Z79.899 Other long term (current) drug therapy
CPT/HCPCS: 36415; 71046; 71275; 80053; 83880; 84484; 85025; 86140; 93005; 99285; J3490 ×3; Q9967; 71045; 71045-26; 81001; 85027; 87040; 93010; 94640; 94667; 94668; 94760; 94761; 99232; 99233; 99239; A9270-GY; J0456; J0696; J7030; J7050; J7620-GY

== ENCOUNTER 2023-12-26 10:39 | Emergency (ER) | payer MEDICARE ==
[2023-12-26 11:18] VITALS: BP 103/64; PULSE 76
[2023-12-26] MEDS: Famotidine 20 MG/2 ML SDV IVPUSH ONE (12:01)
[2023-12-26] MEDS: Sodium Chloride 0.9% 1,000 ML IV ONE (12:01)
[2023-12-26] MEDS: Ondansetron 4 MG/2 ML SDV IVPUSH ONE (12:01)
[2023-12-26 12:02] LABS: BASOPHILS PERCENT AUTO 0.5 % (0.0-1.0); EOSINOPHILS ABSOLUTE AUTO 0.1 K/mm3 (0.0-0.4); EOSINOPHILS PERCENT AUTO 1.6 % (0.0-6.0); HEMATOCRIT 33.5 % (37.0-47.0); HEMOGLOBIN 10.5 gm/dl (12.0-16.0); IMMATURE GRAN ABSOLUTE AUTO 0.03 K/mm3 (0.00-0.05); IMMATURE GRAN PERCENT AUTO 0.4 % (0.0-0.4); LYMPHOCYTES ABSOLUTE AUTO 1.2 K/mm3 (1.0-4.8); LYMPHOCYTES PERCENT AUTO 13.9 % (24.0-44.0); MEAN CORPUSCULAR HEMOGLOBIN 28.1 pg (28.0-32.0); MEAN CORPUSCULAR HGB CONC 31.3 g/dl (32.0-36.0); MEAN CORPUSCULAR VOLUME 89.6 fl (83.0-99.0); MEAN PLATELET VOLUME 9.5 fl (9.4-12.3); MONOCYTES ABSOLUTE AUTO 0.5 K/mm3 (0.0-0.8); MONOCYTES PERCENT AUTO 5.9 % (0.0-8.0); NEUTROPHILS ABSOLUTE AUTO 6.4 K/mm3 (1.8-7.7); NEUTROPHILS PERCENT AUTO 77.7 % (41.0-71.0); PLATELET COUNT,PLT 262 K/mm3 (150-400); RED BLOOD CELL COUNT 3.74 M/mm3 (4.10-5.30); WHITE BLOOD CELL COUNT,WBC 8.28 K/mm3 (3.9-11.3)
[2023-12-26 12:28] LABS: A/G RATIO 0.8 (1-2); ALBUMIN 2.7 g/dl (3.4-5.0); ANION GAP 10.4 (5-15); BILIRUBIN TOTAL 0.3 mg/dL (0.2-1.0); CALCIUM 9.3 mg/dL (8.5-10.1); CREATININE 1.5 mg/dL (0.55-1.02); EST CRCL DRUG DOSING (CG) 26.6 mL/min; POTASSIUM,K 3.4 mEq/L (3.5-5.1); PROTEIN TOTAL,TP 6.2 g/dl (6.4-8.2)
[2023-12-26] MEDS: Sodium Chloride 0.9% 10 ML Syringe FLUSH PRN (13:38)
[2023-12-26] MEDS: Sodium Chloride 0.9% 100 ML IV SCH (13:38)
[2023-12-26] MEDS: Iopamidol 755 Mg/ML 100 ML Bottle IVPUSH ONE (13:38)
[2023-12-26 14:16] LABS: APPEARANCE,URINE CLEAR (Clear); BILIRUBIN,URINE NEGATIVE (Negative); COLOR,URINE YELLOW (Yellow); GLUCOSE,URINE NEGATIVE (Negative); KETONES,URINE TRACE (Negative); LEUKOCYTE ESTERASE,URINE 1+ (Negative); NITRITE,URINE NEGATIVE (Negative); OCCULT BLOOD,URINE TRACE-INTACT (Negative); PROTEIN,URINE NEGATIVE (Negative); UROBILINOGEN,URINE 0.2 (0.2-1.0)
[2023-12-26 14:30] LABS: BACTERIA,URINE FEW /hpf (FEW); MUCUS,URINE FEW /hpf (FEW)
== END 2023-12-26 15:51 | disposition home or self-care (01) ==
LOC: JD.ED 10:39
DX: G93.9 Disorder of brain, unspecified (principal); R11.10 Vomiting, unspecified; I10 Essential (primary) hypertension; I25.2 Old myocardial infarction; E66.9 Obesity, unspecified; Z88.8 Allergy status to other drugs, medicaments and biological substances; Z79.899 Other long term (current) drug therapy; Z86.19 Personal history of other infectious and parasitic diseases; Z86.16 Personal history of COVID-19; Z87.891 Personal history of nicotine dependence; Z68.23 Body mass index [BMI] 23.0-23.9, adult
CPT/HCPCS: 36415; 70470; 71275; 80053; 81001; 81003; 83690; 84484; 85025; 87086; 87088; 87186; 93005; 96361; 96374; 96375; 99284; J2405; J3490; J7030; Q9967; 93010

== ENCOUNTER 2024-03-08 16:52 | Inpatient (IN) | payer MEDICARE ==
[2024-03-08] MEDS: Sodium Chloride 0.9% 1,000 ML IV SCH (18:41)
[2024-03-08] MEDS: Metoclopramide 10 MG/2 ML SDV IVPUSH ONE (18:41)
[2024-03-08] MEDS: Sodium Chloride 0.9% 10 ML Syringe FLUSH PRN (18:41)
[2024-03-08 18:49] LABS: BASOPHILS ABSOLUTE AUTO 0.1 K/mm3 (0.0-0.2); BASOPHILS PERCENT AUTO 0.7 % (0.0-1.0); EOSINOPHILS ABSOLUTE AUTO 0.6 K/mm3 (0.0-0.4); EOSINOPHILS PERCENT AUTO 5.9 % (0.0-6.0); HEMATOCRIT 38.6 % (37.0-47.0); HEMOGLOBIN 11.8 gm/dl (12.0-16.0); IMMATURE GRAN ABSOLUTE AUTO 0.04 K/mm3 (0.00-0.05); IMMATURE GRAN PERCENT AUTO 0.4 % (0.0-0.4); LYMPHOCYTES ABSOLUTE AUTO 1.5 K/mm3 (1.0-4.8); LYMPHOCYTES PERCENT AUTO 14.8 % (24.0-44.0); MEAN CORPUSCULAR HEMOGLOBIN 27.8 pg (28.0-32.0); MEAN CORPUSCULAR HGB CONC 30.6 g/dl (32.0-36.0); MEAN CORPUSCULAR VOLUME 90.8 fl (83.0-99.0); MEAN PLATELET VOLUME 10.8 fl (9.4-12.3); MONOCYTES ABSOLUTE AUTO 0.7 K/mm3 (0.0-0.8); MONOCYTES PERCENT AUTO 7.3 % (0.0-8.0); NEUTROPHILS PERCENT AUTO 70.9 % (41.0-71.0); PLATELET COUNT,PLT 326 K/mm3 (150-400); RED BLOOD CELL COUNT 4.25 M/mm3 (4.10-5.30); WHITE BLOOD CELL COUNT,WBC 9.85 K/mm3 (3.9-11.3)
[2024-03-08 18:50] LABS: A/G RATIO 0.8 (1-2); ALBUMIN 3.2 g/dl (3.4-5.0); ANION GAP 11.6 (5-15); BILIRUBIN TOTAL 0.4 mg/dL (0.2-1.0); BUN/CREATININE RATIO 23.2 (14-18); C-REACTIVE PROTEIN 1.72 mg/dL (<0.30); CALCIUM 10.2 mg/dL (8.5-10.1); CREATININE 1.9 mg/dL (0.55-1.02); POTASSIUM,K 3.6 mEq/L (3.5-5.1); PROTEIN TOTAL,TP 7.1 g/dl (6.4-8.2)
[2024-03-08] MEDS: Iopamidol 612 MG/ML 100 ML Bottle IVPUSH ONE (19:40)
[2024-03-08] MEDS: Sodium Chloride 0.9% 100 ML IV SCH (19:40)
[2024-03-08] MEDS: Sodium Chloride 0.9% 10 ML Syringe FLUSH ONE (19:40)
[2024-03-08] MEDS: Lactated Ringers 500 ML IV ONE (21:06)
[2024-03-08] MEDS ORDERED: Ondansetron 4 MG/2 ML SDV IVPUSH PRN (23:42)
[2024-03-09] MEDS: Dextrose 5%-Lactated Ringers 1,000 ML IV SCH (00:41)
[2024-03-09 05:41] LABS: ANION GAP 11.3 (5-15); BUN/CREATININE RATIO 24.6 (14-18); CREATININE 1.3 mg/dL (0.55-1.02); EST CRCL DRUG DOSING (CG) 30.7 mL/min; POTASSIUM,K 3.3 mEq/L (3.5-5.1)
[2024-03-09] MEDS ORDERED: Docusate Sodium 100 MG Cap PO PRN (09:20)
[2024-03-09] MEDS ORDERED: Polyethylene Glycol 3350 Powder 17 GM Packet PO PRN (09:20)
[2024-03-09] MEDS ORDERED: Ondansetron 4 MG/2 ML SDV IVPUSH PRN (09:22)
[2024-03-09] MEDS ORDERED: Bisacodyl 10 MG Supp RECTAL PRN (12:38)
[2024-03-09] MEDS: Potassium Chloride 10 MEQ in Premix Bag 1 BAG IV SCH (12:45)
[2024-03-09] MEDS: Cetirizine 10 MG Tab PO SCH (13:02)
[2024-03-09] MEDS: Sertraline 25 MG Tab PO SCH (13:03)
[2024-03-09] MEDS: Docusate Sodium 100 MG Cap PO SCH (13:03)
[2024-03-09] MEDS: Pantoprazole 40 MG Tab.CR PO SCH (13:03)
[2024-03-09 15:24] LABS: MAGNESIUM 1.8 mg/dL (1.8-2.4); PHOSPHORUS 2.9 mg/dL (2.6-4.7)
[2024-03-09] MEDS: Rivaroxaban 15 MG Tab PO SCH (17:49)
[2024-03-09] MEDS: Carboxymethylcellulose Sodium 1% Ophth Gel 15 ML Bottle EYEBOTH SCH (21:30)
[2024-03-09] MEDS: Ezetimibe 10 MG Tab PO SCH (21:30)
[2024-03-09] MEDS: Metoprolol Tartrate 25 MG Tab PO SCH (21:30)
[2024-03-09] MEDS: Acetaminophen 325 MG Tab PO PRN (21:36)
[2024-03-10 04:50] LABS: BASOPHILS ABSOLUTE AUTO 0.1 K/mm3 (0.0-0.2); BASOPHILS PERCENT AUTO 0.6 % (0.0-1.0); EOSINOPHILS ABSOLUTE AUTO 0.7 K/mm3 (0.0-0.4); HEMATOCRIT 32.9 % (37.0-47.0); HEMOGLOBIN 10.1 gm/dl (12.0-16.0); IMMATURE GRAN ABSOLUTE AUTO 0.02 K/mm3 (0.00-0.05); IMMATURE GRAN PERCENT AUTO 0.2 % (0.0-0.4); LYMPHOCYTES ABSOLUTE AUTO 1.7 K/mm3 (1.0-4.8); LYMPHOCYTES PERCENT AUTO 18.5 % (24.0-44.0); MEAN CORPUSCULAR HEMOGLOBIN 27.9 pg (28.0-32.0); MEAN CORPUSCULAR HGB CONC 30.7 g/dl (32.0-36.0); MEAN CORPUSCULAR VOLUME 90.9 fl (83.0-99.0); MEAN PLATELET VOLUME 10.6 fl (9.4-12.3); MONOCYTES ABSOLUTE AUTO 0.9 K/mm3 (0.0-0.8); MONOCYTES PERCENT AUTO 9.1 % (0.0-8.0); NEUTROPHILS PERCENT AUTO 64.6 % (41.0-71.0); PLATELET COUNT,PLT 241 K/mm3 (150-400); RED BLOOD CELL COUNT 3.62 M/mm3 (4.10-5.30); WHITE BLOOD CELL COUNT,WBC 9.35 K/mm3 (3.9-11.3)
[2024-03-10 05:49] LABS: A/G RATIO 0.8 (1-2); ALBUMIN 2.5 g/dl (3.4-5.0); ANION GAP 9.9 (5-15); BILIRUBIN TOTAL 0.3 mg/dL (0.2-1.0); BUN/CREATININE RATIO 24.4 (14-18); CALCIUM 9.3 mg/dL (8.5-10.1); CREATININE 0.9 mg/dL (0.55-1.02); EST CRCL DRUG DOSING (CG) 44.34 mL/min; MAGNESIUM 1.8 mg/dL (1.8-2.4); POTASSIUM,K 3.9 mEq/L (3.5-5.1); PROTEIN TOTAL,TP 5.7 g/dl (6.4-8.2)
[2024-03-10] MEDS: Potassium Chloride 10 MEQ Tab.ER PO SCH (09:25)
[2024-03-10] MEDS: Megestrol Susp 40 MG/ML 10 ML UD Cup PO SCH (09:25)
[2024-03-10] MEDS: Ascorbic Acid 500 MG Tab PO SCH (09:25)
[2024-03-10] MEDS: oxyCODONE 5 MG Tab PO PRN (16:49)
[2024-03-11] MEDS: Docusate Sodium 100 MG Cap PO SCH (08:02)
[2024-03-11] MEDS: LORazepam 0.5 MG Tab PO PRN (13:58)
[2024-03-12] MEDS: Citalopram 20 MG Tab PO SCH (11:17)
[2024-03-12 20:31] VITALS: PULSE 80
[2024-03-13 08:27] VITALS: BP 104/56
== END 2024-03-13 12:56 | DRG 683 ==
LOC: JD.ED 16:52 → JD.MS 21:25
PROVIDERS: ADMIT Student in an Organized Health Care Education/Training Program; ATTEND Student in an Organized Health Care Education/Training Program
DX: R11.2 Nausea with vomiting, unspecified (principal); N17.9 Acute kidney failure, unspecified; C34.91 Malignant neoplasm of unspecified part of right bronchus or lung; C34.92 Malignant neoplasm of unspecified part of left bronchus or lung; C79.31 Secondary malignant neoplasm of brain; N18.9 Chronic kidney disease, unspecified; C79.89 Secondary malignant neoplasm of other specified sites; Z68.23 Body mass index [BMI] 23.0-23.9, adult; K56.600 Partial intestinal obstruction, unspecified as to cause; H54.7 Unspecified visual loss; I12.9 Hypertensive chronic kidney disease with stage 1 through stage 4 chronic kidney disease, or unspecified chronic kidney disease; F32.A Depression, unspecified; E66.9 Obesity, unspecified; K59.00 Constipation, unspecified; Z66 Do not resuscitate; I16.0 Hypertensive urgency; R63.0 Anorexia; G89.29 Other chronic pain; K27.9 Peptic ulcer, site unspecified, unspecified as acute or chronic, without hemorrhage or perforation; N18.4 Chronic kidney disease, stage 4 (severe); E88.09 Other disorders of plasma-protein metabolism, not elsewhere classified; E88.A Wasting disease (syndrome) due to underlying condition; E87.6 Hypokalemia; E86.0 Dehydration; F41.9 Anxiety disorder, unspecified; Z88.8 Allergy status to other drugs, medicaments and biological substances; Z79.899 Other long term (current) drug therapy; Z79.01 Long term (current) use of anticoagulants; Z95.5 Presence of coronary angioplasty implant and graft; Z86.711 Personal history of pulmonary embolism; Z87.01 Personal history of pneumonia (recurrent); Z87.81 Personal history of (healed) traumatic fracture; Z68.22 Body mass index [BMI] 22.0-22.9, adult; Z86.16 Personal history of COVID-19; Z90.89 Acquired absence of other organs; Z90.2 Acquired absence of lung [part of]; I25.2 Old myocardial infarction; Z86.718 Personal history of other venous thrombosis and embolism; Z95.828 Presence of other vascular implants and grafts; Z99.81 Dependence on supplemental oxygen
CPT/HCPCS: 36415; 71045; 71045-26; 74019; 74019-26; 74177; 74177-26; 80048; 80053; 83690; 83735; 84100; 85025; 86140; 87641; 94760; 94761; 96361; 96374; 97110-GP; 97161-GP; 97530-GP; 99285-25; A9270-GY; J2765; J3480; J3490; J7030; J7120; J7121; Q9967; U0002